=== PATIENT | male | born 1950 | race Caucasian/White ===

== ENCOUNTER 2018-04-04 01:58 | Inpatient (IN) ==
[2018-04-04] MEDS ORDERED: MethylPREDNISolone Sod Succinate Inj 125 MG/2 ML Vial IV.PUSH ONE (02:01)
[2018-04-04 02:19] LABS: Baso # (Auto) 0.1 th/mm3 (0.0-0.2); Baso % (Auto) 1.1 % (0.0-2.0); Eos # (Auto) 0.2 th/mm3 (0.0-0.4); Eos % (Auto) 2.1 % (0.0-4.0); Hematocrit 39.5 % (39.0-51.0); Lymph # (Auto) 2.6 th/mm3 (1.0-4.8); Lymph % (Auto) 25.1 % (9.0-44.0); Mean Corpuscular Hemoglobin 31.6 pg (27.0-34.0); Mean Corpuscular Volume 96.1 fL (80.0-100.0); Mean Platelet Volume 8.3 fL (7.0-11.0); Mono # (Auto) 0.9 th/mm3 (0.0-0.9); Mono % (Auto) 8.2 % (0.0-8.0); Neut # (Auto) 6.7 th/mm3 (1.8-7.7); Neut % (Auto) 63.5 % (16.0-70.0); Platelet Count 278 th/mm3 (150-450); Red Blood Count 4.11 mil/mm3 (4.50-5.90); Red Cell Distribution Width 14.8 % (11.6-17.2); White Blood Count 10.5 th/mm3 (4.0-11.0)
--- NOTE | 2018-04-04 02:19 | ED ---
HPI General Chief complaint: Shortness of Breath/Dyspnea Stated complaint: Respiratory Distress Time Seen by Provider: 04/04/18 02:01 Source: EMS Mode of arrival: EMS Limitations: no limitations History of Present Illness HPI narrative: 68yo M with PMH of DM, HTN, aortic valve replacement, irregular heart rate was brought in by [facility] for sob for a few days. Pt said he has been putting it off. Has long history of smoking but does not know anything about COPD. Denies any fever, chest pain, n/v, abdominal pain, focal weakness or numbness. Pt drinks alcohol daily and had a few beers today. Denies any anticoagulation or any physician representative. Related Data Home Medications Medication Instructions Recorded Confirmed aspirin 162 mg PO DAILY 04/04/18 04/04/18 glipizide 5 mg PO DAILY 04/04/18 04/04/18 losartan 25 mg PO DAILY 04/04/18 04/04/18 metformin 500 mg PO BID 04/04/18 04/04/18 metoprolol tartrate 50 mg PO BID 04/04/18 04/04/18 nifedipine 60 mg PO DAILY 04/04/18 04/04/18 simvastatin 40 mg PO QPM 04/04/18 04/04/18 Allergies Allergy/AdvReac Type Severity Reaction Status Date / Time No Known Allergies Allergy Verified 04/04/18 02:42 Review of Systems ROS: all other systems reviewed are negative [facility]LY [facility] Medical History Medical History Diabetes (Acute) HTN (hypertension) (Acute) Heart attack (Acute) High cholesterol (Acute) History of irregular heartbeat (Acute) Surgical History Surgical History History of heart valve replacement (Acute) Social History Social History Substance History: No History of Abuse Second Hand Smoke Exposure: No Smoking Status: Former smoker How Often Do You Have a Drink Containing Alcohol: 4 or more times a week Recent Travel in [facility] within the Last 8 Weeks: No Exam Narrative Exam Narrative: GENERAL: 68yo M in moderate distress. SKIN: Focused skin assessment warm/dry. HEAD: Atraumatic. Normocephalic. EYES: Pupils equal and round. No scleral icterus. No injection or drainage. ENT: No nasal bleeding or discharge. Mucous membranes pink and moist. NECK: Trachea midline. No JVD. CARDIOVASCULAR: Irregular. No murmur appreciated. RESPIRATORY: + accessory muscle use. End expiratory wheezing bilaterally. Poor air entry. Bibasilar crackles. GASTROINTESTINAL: Abdomen soft, non-tender, nondistended. Hepatic and splenic margins not palpable. MUSCULOSKELETAL: No obvious deformities. No clubbing. No cyanosis. +Bilateral lower extremity edema. NEUROLOGICAL: Awake and alert. No obvious cranial nerve deficits. Motor grossly within normal limits. Normal speech. PSYCHIATRIC: Appropriate mood and affect; insight and judgment normal. Course Initial Documented Vital Signs Temperature 96.0 F L 04/04/18 02:00 Pulse Rate 95 H 04/04/18 02:00 Respiratory Rate 44 H 04/04/18 02:00 Blood Pressure 118/66 04/04/18 02:00 Pulse Oximetry 88 L 04/04/18 02:00 Last Documented Vital Signs Temperature 96.0 F L 04/04/18 02:00 Pulse Rate 96 H 04/04/18 05:47 Respiratory Rate 18 04/04/18 05:47 Blood Pressure 119/66 04/04/18 05:47 Pulse Oximetry 98 04/04/18 05:47 Critical Care Time Critical Care Time: Yes Total Critical Care Time: 50 Attestation: Aggregate critical care time was 50 minutes. Time to perform other separately billable procedures was not included in the critical care time. My time did not include minutes spent treating any other patients simultaneously or on activities that did not directly contribute to the patient's treatment. The services I provided to this patient were to treat and/or prevent clinically significant deterioration that could result in: cardiovascular collapse or . I provided critical care services requiring my management, as noted below: Chart data review, documentation time, medication orders and management, vital sign assessments/reviewing monitor data, ordering and reviewing lab tests, ordering and interpreting/reviewing x-rays and diagnostic studies, care of the patient and discussion of the patient with the admitting physicians. Medical Decision Making MDM Narrative Medical decision making narrative: 68yo M in respiratory distress. Pt was on 4 liters of oxygen and only saturating in the mid 80s. Pt is wheezing bilaterally but poor air entry so placed on BIPAP immediately. Even though pt did drink a few beers, he is AAOx3 with normal mental status and answering all questions. Pt feeling better on BIPAP and saturating at 94% on 40% FiO2. EKG showed diffuse TWI, may have ischemic changes from hypoxemia. CXR showed mild congestive heart failure. Labs reviewed, no leukocytosis. H/H normal. BNP elevated at 1206. Lasix 40mg IV given. Troponin negative at 0.04. Mild hyponatremia at 132. CO2 low 15.7. Normal anion gap. ABG showed pH of 7.37. pCO2 is low at 23, likely respiratory compensation for metabolic acidosis. HCO3 is low at 13. O2 sat is 92%. pO2 73. Informed by nurse that pt's blood pressure is low. BP is systolic in the 60s in left arm but right arm is 126/ 68. Pt denies any chest pain, back pain, focal weakness or numbness. The arterial pulse is weaker on left but feel a good brachial pulse in left arm. Will do CT aorta to r/o dissection. 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 Florian and accepted to his service. He would like patient transferred [facility]. Pt reevaluated at bedside and remains comfortable on BIPAP. He did have a hard time when he was laying flat for the CT scan but is now feeling better sitting up. Pt is refusing garcia catheter at this time. CTA showed no dissection or aneurysm. Mild congestive heart failure. Lactic acid elevated at 5.8. Metabolic acidosis likely from lactic acidosis. Plan is to continue to diurese patient. He is being transported to [facility] on BIPAP. Pt will good mental status and saturating at 97%. BP 119/66. Medical Screen Exam Complete: Yes Emergency Medical Condition: Yes Differential Diagnosis Differential Diagnosis: COPD exacerbation vs. pneumonia vs. CHF vs. NSTEMI Lab Data Result diagrams: 04/04/18 02:00 04/04/18 02:00 Lab Results 04/04/18 04/04/18 04/04/18 Range/Units 02:00 02:00 02:00 CBC w Diff Auto diff final WBC 10.5 (4.0-11.0) th/mm3 RBC 4.11 L (4.50-5.90) mil/mm3 Hgb 13.0 (13.0-17.0) gm/dL Hct 39.5 (39.0-51.0) % MCV 96.1 (80.0-100.0) fL MCH 31.6 (27.0-34.0) pg MCHC 33.0 (32.0-36.0) % RDW 14.8 (11.6-17.2) % Plt Count 278 (150-450) th/mm3 MPV 8.3 (7.0-11.0) fL Neut % (Auto) 63.5 (16.0-70.0) % Lymph % (Auto) 25.1 (9.0-44.0) % Bullock % (Auto) 8.2 H (0.0-8.0) % Eos % (Auto) 2.1 (0.0-4.0) % Baso % (Auto) 1.1 (0.0-2.0) % Neut # (Auto) 6.7 (1.8-7.7) th/mm3 Lymph # (Auto) 2.6 (1.0-4.8) th/mm3 Bullock # (Auto) 0.9 (0.0-0.9) th/mm3 Eos # (Auto) 0.2 (0.0-0.4) th/mm3 Baso # (Auto) 0.1 (0.0-0.2) th/mm3 WBC Differential . Differential Comment . PT 10.2 (9.8-11.6) sec INR 1.0 Ratio APTT 28.0 (23.4-31.7) sec Puncture Site Patient Temperature O2 Saturation (90-100) % ABG pH (7.380-7.420) ABG pCO2 (38-42) mmHg ABG pO2 (61-120) mmHg ABG HCO3 (22-26) mmol/L ABG O2 Content (12.0-20.0) Vol % ABG Base Excess (-2-2) mmol/L ABG Methemoglobin (0-2) % Denzel Test Hemoglobin (12.0-16.0) G/DL Carboxyhemoglobin (0-4) % O2 Delivery Device Vent Setting Inspired O2 % Critical Value Sodium 132 L (136-145) meq/L Potassium 3.9 (3.5-5.1) meq/L Chloride 101 (98-107) meq/L Carbon Dioxide 15.7 L (21.0-32.0) meq/L Anion Gap 15 (5-15) meq/L BUN 13 (7-18) mg/dL Creatinine 1.10 (0.60-1.30) mg/dL Estimated GFR 67 L (>89) mL/min Random Glucose 122 H (74-106) mg/dL Lactic Acid (0.4-2.0) mmol/L Calcium 8.0 L (8.5-10.1) mg/dL Total Bilirubin 0.8 (0.2-1.0) mg/dL AST 19 (15-37) U/L ALT 20 (12-78) U/L Alkaline Phosphatase 82 (45-117) U/L Troponin I 0.04 (0.02-0.05) ng/mL B-Natriuretic Peptide (0-100) pg/mL Total Protein 6.9 (6.4-8.2) g/dL Albumin 3.1 L (3.4-5.0) g/dL 04/04/18 04/04/18 04/04/18 Range/Units 02:00 02:50 04:00 CBC w Diff WBC (4.0-11.0) th/mm3 RBC (4.50-5.90) mil/mm3 Hgb (13.0-17.0) gm/dL Hct (39.0-51.0) % MCV (80.0-100.0) fL MCH (27.0-34.0) pg MCHC (32.0-36.0) % RDW (11.6-17.2) % Plt Count (150-450) th/mm3 MPV (7.0-11.0) fL Neut % (Auto) (16.0-70.0) % Lymph % (Auto) (9.0-44.0) % Bullock % (Auto) (0.0-8.0) % Eos % (Auto) (0.0-4.0) % Baso % (Auto) (0.0-2.0) % Neut # (Auto) (1.8-7.7) th/mm3 Lymph # (Auto) (1.0-4.8) th/mm3 Bullock # (Auto) (0.0-0.9) th/mm3 Eos # (Auto) (0.0-0.4) th/mm3 Baso # (Auto) (0.0-0.2) th/mm3 WBC Differential Differential Comment PT (9.8-11.6) sec INR Ratio APTT (23.4-31.7) sec Puncture Site Right radial Patient Temperature 98.6 O2 Saturation 92 (90-100) % ABG pH 7.37 L (7.380-7.420) ABG pCO2 23 L* (38-42) mmHg ABG pO2 73 (61-120) mmHg ABG HCO3 13 L* (22-26) mmol/L ABG O2 Content 17.0 (12.0-20.0) Vol % ABG Base Excess -11.1 L (-2-2) mmol/L ABG Methemoglobin 1.2 (0-2) % Denzel Test Y Hemoglobin 13.1 (12.0-16.0) G/DL Carboxyhemoglobin 1.4 (0-4) % O2 Delivery Device Bipap Vent Setting [id number] Inspired O2 40 % Critical Value Yes Sodium (136-145) meq/L Potassium (3.5-5.1) meq/L Chloride (98-107) meq/L Carbon Dioxide (21.0-32.0) meq/L Anion Gap (5-15) meq/L BUN (7-18) mg/dL Creatinine (0.60-1.30) mg/dL Estimated GFR (>89) mL/min Random Glucose (74-106) mg/dL Lactic Acid 5.8 H* (0.4-2.0) mmol/L Calcium (8.5-10.1) mg/dL Total Bilirubin (0.2-1.0) mg/dL AST (15-37) U/L ALT (12-78) U/L Alkaline Phosphatase (45-117) U/L Troponin I (0.02-0.05) ng/mL B-Natriuretic Peptide 1206 H (0-100) pg/mL Total Protein (6.4-8.2) g/dL Albumin (3.4-5.0) g/dL Imaging Data Radiologist's impression: Chest X-Ray 04/04/18 02:01 CONCLUSION: Mild congestive heart failure. Thoracic Aorta CT 04/04/18 03:21 CONCLUSION: 1. No thoracic or abdominal aortic aneurysm or dissection. Moderate to severe atherosclerotic disease. 2. Mild congestive heart failure. 3. Atrophic right kidney. Fatty liver. ECG Data EKG Prior to Arrival: No Attestation: I personally reviewed and interpreted this ECG as follows: Interpretation: Afib at 99bpm. TWI diffusely. Poor baseline due to pt's respiration. No significant ST elevation although baseline is very poor. Discharge Plan Discharge Disposition Patient Disposition: 30 Still Patient Discharge Details Diagnosis: Acute respiratory failure with hypoxia, Acidosis, lactic Physicians Team ED Provider: Rosy Taylor Primary Care Provider: Elias Plzaa Attending Provider: Skip Florian Status ED Status: Left Department Discharge Information Discharge Date/Time: 04/04/18 06:03
[2018-04-04 02:28] LABS: Chloride 101 meq/L (98-107); Potassium 3.9 meq/L (3.5-5.1); Sodium 132 meq/L (136-145)
[2018-04-04 02:32] LABS: Albumin 3.1 g/dL (3.4-5.0); Anion Gap 15 meq/L (5-15); Blood Urea Nitrogen 13 mg/dL (7-18); Carbon Dioxide 15.7 meq/L (21.0-32.0); Glucose,Random 122 mg/dL (74-106)
[2018-04-04 02:33] LABS: Prothrombin Time 10.2 sec (9.8-11.6)
[2018-04-04 02:35] LABS: Alanine Aminotransferase 20 U/L (12-78); Aspartate Aminotransferase 19 U/L (15-37)
[2018-04-04 02:36] LABS: Glomerular Filtration Rate 67 mL/min (>89)
[2018-04-04 02:37] LABS: Total Protein 6.9 g/dL (6.4-8.2)
[2018-04-04 02:38] LABS: Alkaline Phosphatase 82 U/L (45-117)
[2018-04-04 02:40] LABS: Troponin I 0.04 ng/mL (0.02-0.05)
--- NOTE | 2018-04-04 02:56 | XR ---
EXAM DATE: 04/04/2018 2:47 AM EST AGE/SEX: 68 years / Male INDICATIONS: Short of breath. CLINICAL DATA: This is the patient's initial encounter. Patient reports that signs and symptoms have been present for 1 day and indicates a pain score of 0/10. MEDICAL/SURGICAL HISTORY: Non-responsive. CABG. COMPARISON: No prior exams available for comparison. FINDINGS: There is bilateral mostly basilar airspace disease with small effusions. Cardiomegaly. Previous rico otomy. CONCLUSION: Mild congestive heart failure. Electronically signed by: Mick Becerra MD 04/04/2018 2:55 AM EST
[2018-04-04 03:02] LABS: ABG Base Excess -11.1 mmol/L (-2-2); ABG PCO2 23 mmHg (38-42); ABG PO2 73 mmHg (61-120)
[2018-04-04] MEDS ORDERED: Potassium Chlor 20 mEq Premix 20 MEQ/100 ML PIGGYBACK IV.SIG PRN ×2 (03:40)
[2018-04-04] MEDS ORDERED: Bisacodyl 10 MG Supp RECTAL PRN (03:40)
[2018-04-04] MEDS ORDERED: Potassium Chlor 40 mEq Premix 40 MEQ/100 ML PIGGYBACK IV.SIG PRN ×2 (03:40)
[2018-04-04] MEDS ORDERED: Potassium Phosphate Inj 30 MMOL in Sodium Chlor 0.9% Inj 250 ML IV.SIG PRN (03:40)
[2018-04-04] MEDS ORDERED: Dextrose 50% in Water 50 ML Vial IV.PUSH PRN (03:40)
[2018-04-04] MEDS ORDERED: Sodium Phosphate Inj 30 MMOL in Sodium Chlor 0.9% Inj 250 ML IV.SIG PRN (03:40)
[2018-04-04] MEDS ORDERED: Magnesium Oxide 400 MG Tablet PO PRN (03:40)
[2018-04-04] MEDS ORDERED: Magnesium Sulfate Inj 2 GM in Sodium Chlor 0.9% Inj 96 ML IV.SIG PRN (03:40)
[2018-04-04] MEDS ORDERED: Potassium Phosphate 500 MG Soluble Tablet PO PRN ×2 (03:40)
[2018-04-04] MEDS ORDERED: Potassium Chloride 25 MEQ Effervescent Tablet PO PRN (03:40)
[2018-04-04] MEDS ORDERED: Magnesium Sulfate Inj 4 GM in Sodium Chlor 0.9% Inj 92 ML IV.SIG PRN (03:40)
[2018-04-04] MEDS ORDERED: Chlorhexidine Gluconate 2% 1 Pack (2 Cloths) TOPICAL PRN (04:00)
--- NOTE | 2018-04-04 04:33 | CT ---
EXAM DATE: 04/04/2018 4:09 AM EST AGE/SEX: 68 years / Male INDICATIONS: Respiratory distress. Possible dissection. CLINICAL DATA: This is the patient's initial encounter. Patient reports that signs and symptoms have been present for 1 day and indicates a pain score of 4/10. MEDICAL/SURGICAL HISTORY: . Diabetes. Heart attack. High cholesterol. Irregular heartbeat. Hyperten roxana. . Heart valve replacement. RADIATION DOSE: 19.18 CTDI (mGy) COMPARISON: No prior exams available for comparison. TECHNIQUE: Volumetric scanning was performed using a multi-row detector CT scanner during bolus infu roxana of 75 ml Omnipaque 350 (iohexol) nonionic water-soluble contrast as a single exam dose. The da ta was post processed with a variety of visualization algorithms including full volume maximum intens ity projection, multi-planar sliding thin slab reformation, curved planar reformation, and surface re ndering techniques. Using automated exposure control and adjustment of the mA and/or kV according to patient size, radiation dose was kept as low as reasonably achievable to obtain optimal diagnostic q uality images. DICOM format image data is available electronically for review and comparison. FINDINGS: There is no thoracic or abdominal aortic aneurysm or dissection. Moderate atherosclerotic disease is present. Moderate coronary artery calcifications. There is a mild edema pattern in the lungs with small bilateral pleural effusions and basilar atelect asis most characteristic of mild heart failure. The liver is fatty infiltrated. Spleen, adrenals, left kidney and pancreas unremarkable. Atrophic rig ht kidney. No pelvic masses. CONCLUSION: 1. No thoracic or abdominal aortic aneurysm or dissection. Moderate to severe atherosclerotic diseas e. 2. Mild congestive heart failure. 3. Atrophic right kidney. Fatty liver. Electronically signed by: Mick Becerra MD 04/04/2018 4:32 AM EST
--- NOTE | 2018-04-04 06:38 | P.HPCC ---
History of Present Illness Service: Critical care Primary Care Physician: Elias Plaza MD Chief Complaint: Increasing shortness of breath, heart failure History of Present Illness: Patient is a 68-year-old male with past medical history significant for DM, HTN, aortic valve replacement 2007 (pericardial tissue valve), irregular heart rate, alcohol abuse/dependence who was brought in by [facility] for sob for a few days. Quit smoking about 10 years ago. Continues to drink heavily approximately 9 beers daily. Does not regularly see a instrument lens generator has irregular heart rate but not sure whether it is atrial fibrillation, takes aspirin not on any anticoagulation. In the ER initially on nasal cannula at 4 L oxygen saturation was only in the mid 80s. Because of diffuse wheezing patient received IV Solu-Medrol 125 mg x1 and breathing treatments and subsequently was placed on BiPAP. Chest x-ray showed evidence of congestive heart failure, BNP was 1200. Patient was given a total of 120 mg of IV Lasix in the [place] emergency department. Subsequently was transferred to CVICU at [facility] where I evaluated him. Patient also was noted to have severe metabolic acidosis secondary to lactic acidosis 5.8. This appears most likely secondary to poor perfusion. ABG showed pH of 7.37. pCO2 23, PO2 73, bicarb was 13 with a base excess of -11. I evaluated the patient in the ICU. He is on BiPAP in moderate distress. His clinical exam is consistent with CHF exacerbation. 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 And a stat echo had been ordered. Continue IV Lasix for diuresis along with breathing treatments. I am unable to do inotropic support at this time as severe aortic stenosis is not ruled out, also patient is in atrial fibrillation with RVR. Rate controlled with p.o. metoprolol and IV metoprolol as needed. Cardiology also had been consulted - Diagnosis (1) Acute hypoxemic respiratory failure (2) CHF exacerbation (3) Atrial fibrillation with RVR (4) Acidosis, lactic (5) COPD exacerbation (6) Alcohol dependence (7) Type 2 diabetes mellitus (8) Hypertension (9) S/P AVR (aortic valve replacement) Inpatient Certification: I certify that the inpatient services were ordered in accordance with Medicare regulations governing the order. This includes certification that hospital inpatient services are reasonable and necessary and in the case of services not specified as inpatient-only under 42 CFR 419.22(n), that they are appropriately provided as inpatient services in accordance to with the 2-midnight benchmark under 43 CFR 412.3(e) Estimated Total Length of Stay (Days): 7 Plans for Post Hospital Care: Not yet determined Review of Systems other (Limited due to BiPAP use) [facility] - History History Provided By: Patient - Medical History Medical History: Medical History (Last Reviewed 04/04/18 @ 07:07 by Agueda Pierre MD) Diabetes HTN (hypertension) Heart attack High cholesterol History of irregular heartbeat - Surgical History Surgical History: Surgical History (Last Reviewed 04/04/18 @ 07:07 by Agueda Pierre MD) History of heart valve replacement - Tobacco History Second Hand Smoke Exposure: No Smoking Status: Former smoker - Alcohol History How Often Do You Have a Drink Containing Alcohol: 4 or more times a week - Substance Use History Substance History: No History of Abuse - Travel History Recent Travel in the [facility] Within the Last 8 Weeks: No - Immunization History Tetanus Immunization: >5 Years Medications and Allergies Active Medications: Active Medications Albuterol (Duoneb Neb (Prn)) 1 ampul NEB Q2HR NEB PRN PRN Reason: WHEEZING Bisacodyl (Dulcolax Supp) 10 mg RECTAL DAILY PRN PRN Reason: if no BM in last 24h Chlorhexidine Gluconate (Chlorhexidine 2% Cloth) 3 pack TOPICAL DAILY@0400 JAZZMINE Stop: 04/09/18 03:59 Chlorhexidine Gluconate (Chlorhexidine 2% Cloth) 3 pack TOPICAL DAILY@0400 PRN PRN Reason: Extra cloth needed Stop: 04/09/18 03:59 Dextrose (D50w Vial) 50 ml IV.PUSH UNSCH PRN PRN Reason: PER HYPOGLYCEMIA PROTOCOL Glucagon (Glucagon Inj) 1 mg OTHER PRN PRN PRN Reason: for Hypoglycemia Protocol Magnesium Sulfate 4 gm/ Sodium (Chloride) 100 mls @ 50 mls/hr IV.SIG UNSCH PRN PRN Reason: For Magnesium 0.9 - 1.1 mg/dL Magnesium Sulfate 2 gm/ Sodium (Chloride) 100 mls @ 50 mls/hr IV.SIG UNSCH PRN PRN Reason: For Magnesium 1.2 - 1.6 mg/dL Potassium Chloride (Kcl 40 Meq Premix Inj) 40 meq in 100 mls @ 25 mls/hr IV.SIG Q2H PRN PRN Reason: For Potassium 2.8 - 3.2 mEq/L Potassium Chloride (Kcl 20 Meq Premix Inj) 20 meq in 100 mls @ 50 mls/hr IV.SIG Q2H PRN PRN Reason: For Potassium 3.3 - 3.5 mEq/L Potassium Chloride (Kcl 40 Meq Premix Inj) 40 meq in 100 mls @ 25 mls/hr IV.SIG UNSCH PRN PRN Reason: For Potassium 3.3 - 3.5 mEq/L Potassium Chloride (Kcl 20 Meq Premix Inj) 20 meq in 100 mls @ 50 mls/hr IV.SIG Q2H PRN PRN Reason: For Potassium 2.8 - 3.2 mEq/L Sodium Phosphate 30 mmol/ (Sodium Chloride) 260 mls @ 42 mls/hr IV.SIG UNSCH PRN PRN Reason: For Phosphorus < 2.5 mg/dL Potassium Phosphate 30 mmol/ (Sodium Chloride) 260 mls @ 42 mls/hr IV.SIG UNSCH PRN PRN Reason: SEE LABEL COMMENTS Milrinone Lactate 20 mg/ (Sodium Chloride) 100 mls @ 0 mls/hr IV.CONT .Q0M JAZZMINE ; Protocol Insulin Human Regular (Novolin R Correctional Sugar Inj) 0 units SQ Q6HR JAZZMINE; Protocol Lactulose (Lactulose Liq) 30 ml PO BID JAZZMINE Magnesium Oxide (Mag-Ox) 800 mg PO UNSCH PRN PRN Reason: For Magnesium 1.2 - 1.6 mg/dL Methylprednisolone Sodium Succinate (Solumedrol Inj) 40 mg IV.PUSH Q6H JAZZMINE Ondansetron HCl (Zofran Inj) 4 mg IV.PUSH Q6H PRN PRN Reason: NAUSEA OR VOMITING Polyethylene Glycol (Miralax) 17 gm PO BID JAZZMINE Potassium Bicarb/Potassium Chloride (K-Lyte Cl Eff) 50 meq PO UNSCH PRN PRN Reason: For Potassium 3.3 - 3.5 mEq/L Potassium Phosphate (K-Phos Original) 2,000 mg PO Q4H PRN PRN Reason: Phosphorus Less Than 2.5 mg/dL Potassium Phosphate (K-Phos Original) 2,000 mg PO UNSCH PRN PRN Reason: SEE LABEL COMMENTS Senna/Docusate Sodium (Lisa-Colace) 1 tab PO BID JAZZMINE Sodium Chloride (Ns Flush) 2 ml IV.FLUSH UNSCH PRN PRN Reason: FLUSH AFTER USING IV ACCESS Allergies Allergy/AdvReac Type Severity Reaction Status Date / Time No Known Allergies Allergy Verified 04/04/18 02:42 Home Medications Medication Instructions Recorded Confirmed Type aspirin 162 mg PO DAILY 04/04/18 04/04/18 History glipizide 5 mg PO DAILY 04/04/18 04/04/18 History losartan 25 mg PO DAILY 04/04/18 04/04/18 History metformin 500 mg PO BID 04/04/18 04/04/18 History metoprolol tartrate 50 mg PO BID 04/04/18 04/04/18 History nifedipine 60 mg PO DAILY 04/04/18 04/04/18 History simvastatin 40 mg PO QPM 04/04/18 04/04/18 History Results - Labs CBC & Chem 7: 04/04/18 02:00 04/04/18 02:00 Labs: Short CBC 04/04/18 Range/Units 02:00 WBC 10.5 (4.0-11.0) th/mm3 Hgb 13.0 (13.0-17.0) gm/dL Hct 39.5 (39.0-51.0) % Plt Count 278 (150-450) th/mm3 BMP 04/04/18 02:00 Sodium 132 L Potassium 3.9 Chloride 101 Carbon Dioxide 15.7 L BUN 13 Creatinine 1.10 Calcium 8.0 L Cardiac Enzymes 04/04/18 Range/Units 02:00 Troponin I 0.04 (0.02-0.05) ng/mL Liver Function 04/04/18 Range/Units 02:00 Total Bilirubin 0.8 (0.2-1.0) mg/dL AST 19 (15-37) U/L ALT 20 (12-78) U/L Alkaline Phosphatase 82 (45-117) U/L Albumin 3.1 L (3.4-5.0) g/dL - Imaging Impressions Chest X-Ray 04/04/18 02:01 CONCLUSION: Mild congestive heart failure. Thoracic Aorta CT 04/04/18 03:21 CONCLUSION: 1. No thoracic or abdominal aortic aneurysm or dissection. Moderate to severe atherosclerotic disease. 2. Mild congestive heart failure. 3. Atrophic right kidney. Fatty liver. Exam Vital signs: Vital Signs 04/04/18 02:00 04/04/18 02:05 04/04/18 02:20 Temperature 96.0 F L Pulse Rate 95 H 96 H 94 H Respiratory Rate 44 H 28 H 24 Blood Pressure 118/66 Pulse Oximetry 88 L 89 L 94 L 04/04/18 02:35 04/04/18 03:00 04/04/18 04:08 Temperature Pulse Rate 90 Respiratory Rate 23 22 Blood Pressure 126/69 116/53 L Pulse Oximetry 97 04/04/18 04:50 04/04/18 05:24 04/04/18 05:30 Temperature Pulse Rate 96 H 103 H Respiratory Rate 18 18 Blood Pressure 104/49 L 99/55 L Pulse Oximetry 97 97 04/04/18 05:47 Temperature Pulse Rate 96 H Respiratory Rate 18 Blood Pressure 119/66 Pulse Oximetry 98 Intake & Output 04/03/18 04/03/18 04/04/18 06:59 18:59 06:59 Output Total 250 / 250 Balance -250 / -250 Weight 85.729 kg Output: Urine 250 / 250 Narrative: GENERAL: 68-year-old male who appears older than stated age, moderate distress on BiPAP SKIN: warm/dry. HEAD: Atraumatic. Normocephalic. EYES: Pupils equal and round. No scleral icterus. ENT: No nasal bleeding or discharge. NECK: Trachea midline. Elevated JVD CARDIOVASCULAR: Irregular, A. fib with RVR on monitor. Prominent grade 3 systolic murmur heard in the aortic area possible aortic stenosis RESPIRATORY: + accessory muscle use. Bilateral mild expiratory wheezing. Bibasilar crackles. GASTROINTESTINAL: Abdomen soft, non-tender, nondistended. Hepatic and splenic margins not palpable. MUSCULOSKELETAL: No obvious deformities. No clubbing. No cyanosis. 1+ Bilateral lower extremity edema. NEUROLOGICAL: Awake and alert. No obvious cranial nerve deficits. Motor grossly within normal limits. Normal speech. Septic Shock Reassessment Septic shock perfusion: reassessment completed Caprini VTE Risk Assessment Caprini VTE Risk Assessment: Moderate/High Risk (score >= 2) Caprini Risk Assessment Model: Point Value = 1 Point Value = 2 Point Value = 3 Point Value = 5 Age 41-60 Minor surgery BMI > 25 kg/m2 Swollen legs Varicose veins or History of unexplained or recurrent spontaneous Oral contraceptives or hormone replacement Sepsis (< 1 month) Serious lung disease, including pneumonia (< 1 month) Abnormal pulmonary function Acute myocardial infarction Congestive heart failure (< 1 month) History of inflammatory bowel disease Medical patient at bed rest Age 61-74 Arthroscopic surgery Major open surgery (> 45 min) Laparoscopic surgery (> 45 min) Malignancy Confined to bed (> 72 hours) Immobilizing plaster cast Central venous access Age >= 75 History of VTE Family history of VTE Factor V Leiden Prothrombin [id number] Lupus anticoagulant Anticardiolipin antibodies Elevated serum homocysteine Heparin-induced thrombocytopenia Other congenital or acquired thrombophilia Stroke (< 1 month) Elective arthroplasty Hip, pelvis, or leg fracture Acute spinal cord injury (< 1 month) Prophylaxis Regimen: Total Risk Factor Score Risk Level Prophylaxis Regimen 0-1 Low Early ambulation 2 Moderate Order ONE of the following: *Sequential Compression Device (SCD) *Heparin 5000 units SQ BID 3-4 Higher Order ONE of the following medications: *Heparin 5000 units SQ TID *Enoxaparin/Lovenox 40 mg SQ daily (WT < 150 kg, CrCl > 30 mL/min) *Enoxaparin/Lovenox 30 mg SQ daily (WT < 150 kg, CrCl > 10-29 mL/min) *Enoxaparin/Lovenox 30 mg SQ BID (WT < 150 kg, CrCl > 30 mL/min) AND/OR *Sequential Compression Device (SCD) 5 or more Highest Order ONE of the following medications: *Heparin 5000 units SQ TID (Preferred with Epidurals) *Enoxaparin/Lovenox 40 mg SQ daily (WT < 150 kg, CrCl > 30 mL/min) *Enoxaparin/Lovenox 30 mg SQ daily (WT < 150 kg, CrCl > 10-29 mL/min) *Enoxaparin/Lovenox 30 mg SQ BID (WT < 150 kg, CrCl > 30 mL/min) AND *Sequential Compression Device (SCD) Assessment and Plan - Problem List (1) Acute hypoxemic respiratory failure Code(s): J96.01 - Acute respiratory failure with hypoxia Status: Acute (2) CHF exacerbation Code(s): I50.9 - Heart failure, unspecified Status: Acute (3) Atrial fibrillation with RVR Code(s): I48.91 - Unspecified atrial fibrillation Status: Acute (4) Acidosis, lactic Code(s): E87.2 - Acidosis Status: Acute (5) COPD exacerbation Code(s): J44.1 - Chronic obstructive pulmonary disease with (acute) exacerbation Status: Acute (6) Alcohol dependence Code(s): F10.20 - Alcohol dependence, uncomplicated Status: Chronic (7) Type 2 diabetes mellitus Code(s): E11.9 - Type 2 diabetes mellitus without complications Status: Chronic (8) Hypertension Code(s): I10 - Essential (primary) hypertension Status: Chronic (9) S/P AVR (aortic valve replacement) Code(s): Z95.2 - Presence of prosthetic heart valve Status: Chronic - Assessment and Plan Plan: NEURO: Alcohol dependence -Strongly advised to quit drinking -Supplement multivitamin thiamine -Watch closely for withdrawal as the patient drinks about 9 beers daily -Ativan as needed ordered for alcohol withdrawal RESP: Acute hypoxemic respiratory failure Pulmonary edema Probable COPD with exacerbation -Continue BiPAP 04/15. 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 fib rate controlled with beta-blockers -Metoprolol 2.5 mg IV every 6 hours as needed for heart rate more than 100 -2d echo, cardiology consult, serial troponin -Unable to use inotropic agents for lactate clearance at this time, due to A. fib with RVR, and severe aortic stenosis not ruled out -Patient most likely not a candidate for long-term anticoagulation due to alcohol dependence GI: -N.p.o. until respiratory status improved, IV famotidine : -Monitor renal function closely. Place Post catheter. -IV Lasix as above ID: -Monitor closely for evidence of infection -No antibiotics at this time HEME: -Monitor CBC, coags ENDO: Type 2 diabetes -Electrolyte replacement per protocol -Sliding scale insulin PROPH: -Bilateral lower extremity SCDs. Lovenox/famotidine LINES: -Utilize peripheral IVs, central line if needed CC time 47 min discontinuously Code Status: Full
[2018-04-04] MEDS ORDERED: Milrinone Inj 20 MG in Sodium Chlor 0.9% Inj 80 ML IV.CONT SCH (07:00)
[2018-04-04] MEDS ORDERED: Metoprolol Inj 5 MG/5 ML Vial IV.PUSH PRN (07:09)
[2018-04-04] MEDS ORDERED: Sodium Bicarbonate 8.4% Inj 50 MEQ/50 ML Syringe IV.PUSH ONE (07:30)
[2018-04-04] MEDS ORDERED: MethylPREDNISolone Sod Succinate Inj 40 MG/ML Vial IV.PUSH SCH ×2 (08:00→11:00)
[2018-04-04] MEDS ORDERED: Enoxaparin Inj 40 MG/0.4 ML Syringe SQ SCH (09:00)
[2018-04-04] MEDS: Aspirin 325 MG Tablet PO SCH (09:25)
[2018-04-04] MEDS: Metoprolol Tartrate 50 MG Tablet PO SCH ×2 (09:26→21:23)
[2018-04-04] MEDS: Insulin NovoLIN Regular Correctional Sugar Inj SQ SCH ×3 (09:26→17:52)
[2018-04-04] MEDS: Senna/Docusate Sodium 8.6/50 MG Tablet PO SCH ×2 (09:26→21:23)
[2018-04-04] MEDS: Polyethylene Glycol 3350 17 GM Packet PO SCH ×2 (09:27→21:25)
--- NOTE | 2018-04-04 10:24 | MB ---
cc: Hans Broderick MD DATE: 04/03/2018 CHIEF COMPLAINT: Evaluation of acute congestive heart failure. HISTORY OF PRESENT ILLNESS: Angelo Howell is a 68-year-old man with a history of a #21 mm [place] aortic valve replacement 05/22/2007. His cardiac catheterization prior to that showed normal coronary arteries. Valve replacement was required for aortic stenosis secondary to bicuspid valve. Unfortunately, the patient has not had any cardiology followup. He is and lives alone and drinks about 9 beers a day. He does not smoke. He has been developing progressive shortness of breath, which has become acute in the past 2 days. He is now admitted with acute pulmonary edema. He is not able to lie down but while sitting up he is breathing adequately. Denies any chest pain. He has had slight edema. PAST MEDICAL HISTORY: Includes hypertension, diabetes, obesity, COPD, kidney stones, hyperlipidemia. He has been found to have an atrophic right kidney and coronary artery calcifications on his chest CT. SOCIAL HISTORY: Significant for past smoking and current alcohol abuse. MEDICATIONS: Apparently, the only medications he was taking at home was aspirin, although his list includes: 1. Glipizide. 2. Losartan. 3. Metformin. 4. Metoprolol. 5. Nifedipine. 6. Simvastatin. REVIEW OF SYSTEMS: Just recently had cataract surgery and he has had some past mid abdominal pain. Remaining review of systems is negative. PHYSICAL EXAMINATION: GENERAL: Obese, alert, pleasant, white male, mildly tachypneic, but not severely distressed. HEENT: Unremarkable. NECK: Jugular venous distention. Carotid upstrokes are diminished. CHEST: Bibasilar rhonchi. CARDIAC: Normal S1, soft S2, and a harsh 3/6 aortic stenosis murmur, loudest at the right upper sternal border. ABDOMEN: Soft, nontender. EXTREMITIES: One plus edema. Pedal pulses are diminished but palpable. DIAGNOSTIC DATA: Echo shows mitral annular calcification, aortic valve calcification. Aortic valve gradient was 83 mm mean, 133 mm peak, consistent with critical . Right ventricular systolic pressure elevated at 60. Labs show creatinine of 1.1, hematocrit 39.5. Troponin 0.04. BNP 1206. EKG shows atrial fibrillation, ventricular rate of 98. Duration of atrial fibrillation is unclear. There is a strain pattern. IMPRESSION: History of bioprosthetic aortic valve, now with critical stenosis and acute pulmonary edema. PLAN: Diurese him, get him out of pulmonary edema. He will need a diagnostic cardiac catheterization and then will need either a TAVR or open valve replacement, hopefully TAVR because of his high risk status. Metoprolol has been started by the publisher assistant. Heart rate is currently about 110. I am going to add IV heparin. Further therapy to be determined. MD LESLEE Yoo/ts , 10:00 AM , 10:08 AM
[2018-04-04] MEDS: Multivitamin Inj 10 ML, Thiamine Inj 100 MG, Folic Acid Inj 1 MG in Sodium Chlor 0.9% I... IV.SIG SCH (10:31)
[2018-04-04] MEDS: Heparin Drip 25,000 UNIT/250 ML BAG IV.CONT PRN (10:55)
[2018-04-04 10:57] LABS: Activated Partial Thrombo Time 26.2 sec (23.4-31.7); INR 1.1 Ratio; Prothrombin Time 10.7 sec (9.8-11.6)
--- NOTE | 2018-04-04 11:06 | P.CON ---
History of Present Illness Service: CT Surgery Consult date: 04/04/18 Requesting Physician: Agueda Pierre Reason for Consult: Prosthetic valve aortic stenosis, acute CHF Primary Care Provider: Elias Plaza MD Chief Complaint: Increasing shortness of breath, heart failure History of Present Illness: 68y/o male with past medical history significant for DM, HTN, aortic valve replacement 2007 (pericardial tissue valve) by Dr. Wright, irregular heart rate , alcohol abuse who was brought in by [facility] for sob for a few days. Quit smoking about 10 years ago. Continues to drink heavily approximately 9 beers daily. Does not regularly see a lab nurse has irregular heart rate but not sure whether it is atrial fibrillation, takes aspirin not on any anticoagulation. The patient presented with hypoxia, severe dyspnea, and a profound metabolic acidosis with high lactate levels. He was found to be in pulmonary edema as well requiring BIPAP. He was diuresed in the ED and admitted to the CVICU where ECHO shows critical prosthetic valve . He has a 21 [place] pericardial valve placed on 05/22/2007 model Magna 3000. Review of Systems Constitutional: Reports fatigue, Reports lack of energy Eyes: Denies blind spots, Denies blurry vision, Denies bulging eyes, Denies change in vision, Denies double vision, Denies discharge, Denies dry eyes, Denies floaters, Denies irritation, Denies itchy eyes, Denies loss of vision, Denies pain, Denies requires corrective lenses, Denies sensitivity to light, Denies other Ears, Nose, Mouth, and Throat: Denies abnormal hearing, Denies bleeding gums, Denies bad breath, Denies change in voice, Denies dental pain, Denies difficulty swallowing, Denies dizziness, Denies dry mouth, Denies ear discharge , Denies ear pain, Denies facial pain, Denies headache(s), Denies hearing loss, Denies hoarseness, Denies lip swelling, Denies nosebleed, Denies mouth lesions, Denies mouth pain, Denies nasal congestion, Denies nasal discharge, Denies nasal obstruction, Denies nasal trauma, Denies neck lump, Denies neck pain, Denies nose pain, Denies pain with swallowing, Denies poor balance, Denies post nasal drip, Denies ringing in the ears, Denies sinus pain, Denies sinus pressure , Denies sore throat, Denies throat swelling, Denies tongue swelling, Denies other Cardiovascular: Reports irregular heart rhythm, Reports shortness of breath, Reports shortness of breath with activity Respiratory: Denies change in phlegm color, Denies chest congestion, Denies cough, Denies coughing up blood, Denies excessive phlegm production, Denies pain on inspiration, Denies pain with cough, Denies shortness of breath, Denies shortness of breath with activity, Denies snoring, Denies stridor, Denies wheezing, Denies other Gastrointestinal: Denies abdominal pain, Denies belching, Denies black, tarry stools, Denies bloating, Denies bright, red blood in stools, Denies change in bowel habits, Denies constant urge to pass stool, Denies change in stools, Denies coffee ground vomit, Denies constipation, Denies cramping, Denies difficulty swallowing, Denies excessive passing of gas, Denies feeling full early, Denies heartburn, Denies incontinent of stools, Denies loose stools, Denies nausea, Denies pain with swallowing, Denies vomiting, Denies vomiting blood, Denies other Genitourinary: Denies blood in semen, Denies blood in urine, Denies decreased urination, Denies difficulty urinating, Denies difficulty with ejaculations, Denies erectile dysfunction, Denies genital lesions, Denies genital pain, Denies painful urination, Denies side pain, Denies frequent nighttime urination , Denies painful ejaculations, Denies penile discharge, Denies scrotal swelling , Denies testicle lump, Denies testicle pain, Denies urinary frequency, Denies urinary hesitancy, Denies urinary incontinence, Denies urinary urgency, Denies other Musculoskeletal: Denies abnormal walking, Denies back pain, Denies body aches, Denies decreased muscle mass, Denies deformity, Denies joint pain, Denies joint swelling, Denies limited joint movement, Denies loss of height, Denies muscle cramps, Denies muscle weakness, Denies neck pain, Denies numbness, Denies radiating pain into limb, Denies stiffness, Denies tingling, Denies other Skin/Breast: Denies acne, Denies bleeding lesions, Denies boil, Denies breast swelling, Denies breast skin changes, Denies breast pain, Denies breast lump, Denies change in breast shape, Denies change in hair, Denies change in skin color, Denies changing lesions, Denies dry skin, Denies excessive hair growth, Denies hair loss, Denies itching, Denies lesions, Denies nail changes, Denies new lesions, Denies nipple discharge, Denies non-healing lesions, Denies redness , Denies sensitivity to light, Denies rash, Denies skin pain, Denies skin ulcer , Denies sores, Denies stretch taveras, Denies unusual bruising, Denies wounds, Denies yellowing of the skin, Denies other Neurologic: Denies abnormal hearing, Denies abnormal movements, Denies abnormal speech, Denies abnormal walking, Denies behavioral changes, Denies burning sensations, Denies confusion, Denies dizziness, Denies fainting, Denies frequent falls, Denies headache(s), Denies lack of coordination, Denies localized weakness, Denies loss of vision, Denies memory loss, Denies numbness, Denies other visual disturbances, Denies radiating pain, Denies restless legs, Denies convulsions, Denies seizure-like activity, Denies sensory deficit, Denies tingling, Denies tingling/numbness/burning sensations, Denies tremor(s), Denies unsteadiness, Denies weakness, Denies other Psychiatric: Denies abnormal sleep pattern, Denies anxiety, Denies behavioral changes, Denies change in appetite, Denies change in sex drive, Denies confusion , Denies depression, Denies difficulty concentrating, Denies hearing things others do not hear, Denies hopelessness, Denies irritability, Denies lack of enjoyment, Denies memory loss, Denies mood swings, Denies panic attacks, Denies paranoia, Denies seeing things others do not see, Denies sensing things others do not sense, Denies tactile hallucinations, Denies thoughts of hurting/killing others, Denies thoughts of hurting/killing yourself, Denies other Endocrine: Denies cold intolerance, Denies excessive sweating, Denies flushing, Denies heat intolerance, Denies increased hunger, Denies increased thirst, Denies increased urination, Denies rapid, pounding, or irregular heartbeat, Denies other Hematologic/Lymphatic: Denies easy bleeding, Denies easy bruising, Denies enlarged lymph nodes, Denies other Allergic/Immunologic: Denies GI upset with certain foods, Denies hives, Denies itchy eyes, Denies lip swelling, Denies seasonal runny nose, Denies throat swelling, Denies tongue swelling, Denies wheezing, Denies other PMFSH - History History Provided By: Patient - Medical History Medical History: Medical History (Last Reviewed 04/04/18 @ 07:43 by Derrek Vides) Diabetes HTN (hypertension) Heart attack High cholesterol History of irregular heartbeat - Surgical History Surgical History: Surgical History (Last Reviewed 04/04/18 @ 07:43 by Derrek Vides) History of heart valve replacement - Social History I have reviewed the patient's Social History: Yes - Tobacco History Second Hand Smoke Exposure: No Smoking Status: Former smoker - Alcohol History How Often Do You Have a Drink Containing Alcohol: 4 or more times a week - Substance Use History Substance History: No History of Abuse - Travel History Recent Travel in the [place] Within the Last 8 Weeks: No Recent Travel Out of the Country Within the Last 8 Weeks: No - Immunization History Tetanus Immunization: >5 Years Medications and Allergies Active Medications: Active Medications Albuterol (Duoneb Neb (Prn)) 1 ampul NEB Q2HR NEB PRN PRN Reason: WHEEZING Albuterol (Duoneb Neb (Shirley)) 1 ampul NEB Q6HR NEB SHIRLEY Aspirin (Aspirin) 162.5 mg PO DAILY SHIRLEY Last Admin: 04/04/18 09:25 Dose: 162.5 mg Bisacodyl (Dulcolax Supp) 10 mg RECTAL DAILY PRN PRN Reason: if no BM in last 24h Chlorhexidine Gluconate (Chlorhexidine 2% Cloth) 3 pack TOPICAL DAILY@0400 SHIRLEY Stop: 04/09/18 03:59 Chlorhexidine Gluconate (Chlorhexidine 2% Cloth) 3 pack TOPICAL DAILY@0400 PRN PRN Reason: Extra cloth needed Stop: 04/09/18 03:59 Dextrose (D50w Vial) 50 ml IV.PUSH UNSCH PRN PRN Reason: PER HYPOGLYCEMIA PROTOCOL Furosemide (Lasix Inj) 40 mg IV.PUSH BID@0900,1800 [facility] Last Admin: 04/04/18 09:27 Dose: 40 mg Glucagon (Glucagon Inj) 1 mg OTHER PRN PRN PRN Reason: for Hypoglycemia Protocol Magnesium Sulfate 4 gm/ Sodium (Chloride) 100 mls @ 50 mls/hr IV.SIG UNSCH PRN PRN Reason: For Magnesium 0.9 - 1.1 mg/dL Magnesium Sulfate 2 gm/ Sodium (Chloride) 100 mls @ 50 mls/hr IV.SIG UNSCH PRN PRN Reason: For Magnesium 1.2 - 1.6 mg/dL Potassium Chloride (Kcl 40 Meq Premix Inj) 40 meq in 100 mls @ 25 mls/hr IV.SIG Q2H PRN PRN Reason: For Potassium 2.8 - 3.2 mEq/L Potassium Chloride (Kcl 20 Meq Premix Inj) 20 meq in 100 mls @ 50 mls/hr IV.SIG Q2H PRN PRN Reason: For Potassium 3.3 - 3.5 mEq/L Potassium Chloride (Kcl 40 Meq Premix Inj) 40 meq in 100 mls @ 25 mls/hr IV.SIG UNSCH PRN PRN Reason: For Potassium 3.3 - 3.5 mEq/L Potassium Chloride (Kcl 20 Meq Premix Inj) 20 meq in 100 mls @ 50 mls/hr IV.SIG Q2H PRN PRN Reason: For Potassium 2.8 - 3.2 mEq/L Sodium Phosphate 30 mmol/ (Sodium Chloride) 260 mls @ 42 mls/hr IV.SIG UNSCH PRN PRN Reason: For Phosphorus < 2.5 mg/dL Potassium Phosphate 30 mmol/ (Sodium Chloride) 260 mls @ 42 mls/hr IV.SIG UNSCH PRN PRN Reason: SEE LABEL COMMENTS Multivitamins 10 ml/ Thiamine HCl 100 mg/ Folic Acid 1 mg/Sodium Chloride 511.2 mls @ 125 mls/hr IV.SIG Q24H SHIRLEY Stop: 04/06/18 12:06 Last Admin: 04/04/18 10:31 Dose: 125 mls/hr Heparin Sodium/Dextrose (Heparin/D5w 25,000 U/250 Ml) 25,000 unit in 250 mls @ 10 mls/hr IV.CONT TITRATE PRN; Protocol PRN Reason: Per Protocol Insulin Human Regular (Novolin R Correctional Sugar Inj) 0 units SQ Q6HR SHIRLEY; Protocol Last Admin: 04/04/18 09:26 Dose: 7 units Lactulose (Lactulose Liq) 30 ml PO BID SHIRLEY Last Admin: 04/04/18 09:27 Dose: Not Given Lorazepam (Ativan Inj) 1 mg IV.PUSH Q4H PRN PRN Reason: agitation,withdrawal Magnesium Oxide (Mag-Ox) 800 mg PO UNSCH PRN PRN Reason: For Magnesium 1.2 - 1.6 mg/dL Methylprednisolone Sodium Succinate (Solumedrol Inj) 40 mg IV.PUSH Q8H [facility] Metoprolol Tartrate (Lopressor) 50 mg PO BID [facility] Last Admin: 04/04/18 09:26 Dose: 50 mg Metoprolol Tartrate (Lopressor Inj) 2.5 mg IV.PUSH Q6H PRN PRN Reason: HR>100 Ondansetron HCl (Zofran Inj) 4 mg IV.PUSH Q6H PRN PRN Reason: NAUSEA OR VOMITING Polyethylene Glycol (Miralax) 17 gm PO BID [facility] Last Admin: 04/04/18 09:27 Dose: Not Given Potassium Bicarb/Potassium Chloride (K-Lyte Cl Eff) 50 meq PO UNSCH PRN PRN Reason: For Potassium 3.3 - 3.5 mEq/L Potassium Chloride (K-Dur) 20 meq PO BID [facility] Last Admin: 04/04/18 09:25 Dose: 20 meq Potassium Phosphate (K-Phos Original) 2,000 mg PO Q4H PRN PRN Reason: Phosphorus Less Than 2.5 mg/dL Potassium Phosphate (K-Phos Original) 2,000 mg PO UNSCH PRN PRN Reason: SEE LABEL COMMENTS Pravastatin Sodium (Pravachol) 80 mg PO [facility] Senna/Docusate Sodium (Lisa-Colace) 1 tab PO BID [facility] Last Admin: 04/04/18 09:26 Dose: 1 tab Sodium Chloride (Ns Flush) 2 ml IV.FLUSH UNSCH PRN PRN Reason: FLUSH AFTER USING IV ACCESS Allergies Allergy/AdvReac Type Severity Reaction Status Date / Time No Known Allergies Allergy Verified 04/04/18 02:42 Home Medications Medication Instructions Recorded Confirmed Type aspirin 162 mg PO DAILY 04/04/18 04/04/18 History glipizide 5 mg PO DAILY 04/04/18 04/04/18 History losartan 25 mg PO DAILY 04/04/18 04/04/18 History metformin 500 mg PO BID 04/04/18 04/04/18 History metoprolol tartrate 50 mg PO BID 04/04/18 04/04/18 History nifedipine 60 mg PO DAILY 04/04/18 04/04/18 History simvastatin 40 mg PO QPM 04/04/18 04/04/18 History Physical Exam Vital signs: Vital Signs 04/04/18 02:00 04/04/18 02:05 04/04/18 02:20 Temperature 96.0 F L Pulse Rate 95 H 96 H 94 H Respiratory Rate 44 H 28 H 24 Blood Pressure 118/66 Pulse Oximetry 88 L 89 L 94 L 04/04/18 02:35 04/04/18 03:00 04/04/18 04:08 Temperature Pulse Rate 90 Respiratory Rate 23 22 Blood Pressure 126/69 116/53 L Pulse Oximetry 97 04/04/18 04:50 04/04/18 05:24 04/04/18 05:30 Temperature Pulse Rate 96 H 103 H Respiratory Rate 18 18 Blood Pressure 104/49 L 99/55 L Pulse Oximetry 97 97 04/04/18 05:47 04/04/18 06:30 Temperature 96.7 F L Pulse Rate 96 H 117 H Respiratory Rate 18 22 Blood Pressure 119/66 117/73 Pulse Oximetry 98 97 Intake & Output 04/03/18 04/04/18 04/04/18 18:59 06:59 18:59 Output Total 350 / 350 Balance -350 / -350 Weight 85 kg Output: Urine 350 / 350 - Constitutional mild distress - Routine HEENT Exam Head: Present: normocephalic, atraumatic Eye: Present: EOMI, PERRL, normal accommodation - Routine Neck Exam Present: supple, JVD - Routine Respiratory Exam Present: decreased breath sounds, crackles - Routine Cardiovascular Exam Present: irregularly irregular - Detailed Cardiovascular Exam: Murmur 1 Type: Present: holosystolic Location: Present: right sternal border Characteristics: Present: crescendo, harsh - Routine Abdominal Exam Present: soft, normoactive bowel sounds - Routine Extremities Exam Present: pulses intact - Routine Skin Exam Present: intact - Routine Neurological Exam Present: alert, oriented X3 - Routine Psychiatric Exam Present: normal affect Results - Labs CBC & Chem 7: 04/04/18 02:00 04/04/18 02:00 Labs: Laboratory Results - last 24 hr 04/04/18 04/04/18 04/04/18 02:00 02:00 02:00 CBC w Diff Auto diff final WBC 10.5 RBC 4.11 L Hgb 13.0 Hct 39.5 MCV 96.1 MCH 31.6 MCHC 33.0 RDW 14.8 Plt Count 278 MPV 8.3 Neut % (Auto) 63.5 Lymph % (Auto) 25.1 Armstrong % (Auto) 8.2 H Eos % (Auto) 2.1 Baso % (Auto) 1.1 Neut # (Auto) 6.7 Lymph # (Auto) 2.6 Armstrong # (Auto) 0.9 Eos # (Auto) 0.2 Baso # (Auto) 0.1 WBC Differential . Differential Comment . PT 10.2 INR 1.0 APTT 28.0 Puncture Site Patient Temperature O2 Saturation ABG pH ABG pCO2 ABG pO2 ABG HCO3 ABG O2 Content ABG Base Excess ABG Methemoglobin Denzel Test Hemoglobin Carboxyhemoglobin O2 Delivery Device Vent Setting Inspired O2 Critical Value Sodium 132 L Potassium 3.9 Chloride 101 Carbon Dioxide 15.7 L Anion Gap 15 BUN 13 Creatinine 1.10 Estimated GFR 67 L POC Glucose Random Glucose 122 H Lactic Acid Calcium 8.0 L Total Bilirubin 0.8 AST 19 ALT 20 Alkaline Phosphatase 82 Troponin I 0.04 B-Natriuretic Peptide Total Protein 6.9 Albumin 3.1 L 04/04/18 04/04/18 04/04/18 02:00 02:50 04:00 CBC w Diff WBC RBC Hgb Hct MCV MCH MCHC RDW Plt Count MPV Neut % (Auto) Lymph % (Auto) Armstrong % (Auto) Eos % (Auto) Baso % (Auto) Neut # (Auto) Lymph # (Auto) Armstrong # (Auto) Eos # (Auto) Baso # (Auto) WBC Differential Differential Comment PT INR APTT Puncture Site Right radial Patient Temperature 98.6 O2 Saturation 92 ABG pH 7.37 L ABG pCO2 23 L* ABG pO2 73 ABG HCO3 13 L* ABG O2 Content 17.0 ABG Base Excess -11.1 L ABG Methemoglobin 1.2 Denzel Test Y Hemoglobin 13.1 Carboxyhemoglobin 1.4 O2 Delivery Device Bipap Vent Setting [id number] Inspired O2 40 Critical Value Yes Sodium Potassium Chloride Carbon Dioxide Anion Gap BUN Creatinine Estimated GFR POC Glucose Random Glucose Lactic Acid 5.8 H* Calcium Total Bilirubin AST ALT Alkaline Phosphatase Troponin I B-Natriuretic Peptide 1206 H Total Protein Albumin 11/24/18 11/24/18 08:37 08:54 CBC w Diff WBC RBC Hgb Hct MCV MCH MCHC RDW Plt Count MPV Neut % (Auto) Lymph % (Auto) Armstrong % (Auto) Eos % (Auto) Baso % (Auto) Neut # (Auto) Lymph # (Auto) Armstrong # (Auto) Eos # (Auto) Baso # (Auto) WBC Differential Differential Comment PT INR APTT Puncture Site Patient Temperature O2 Saturation ABG pH ABG pCO2 ABG pO2 ABG HCO3 ABG O2 Content ABG Base Excess ABG Methemoglobin Denzel Test Hemoglobin Carboxyhemoglobin O2 Delivery Device Vent Setting Inspired O2 Critical Value Sodium Potassium Chloride Carbon Dioxide Anion Gap BUN Creatinine Estimated GFR POC Glucose 282 H Random Glucose Lactic Acid 2.8 H Calcium Total Bilirubin AST ALT Alkaline Phosphatase Troponin I B-Natriuretic Peptide Total Protein Albumin - Imaging Impressions Chest X-Ray 04/04/18 02:01 CONCLUSION: Mild congestive heart failure. Thoracic Aorta CT 04/04/18 03:21 CONCLUSION: 1. No thoracic or abdominal aortic aneurysm or dissection. Moderate to severe atherosclerotic disease. 2. Mild congestive heart failure. 3. Atrophic right kidney. Fatty liver. Assessment and Plan - Assessment (1) Prosthetic cardiac valve calcification Code(s): T82.897A - Other specified complication of cardiac prosthetic devices, implants and grafts, initial encounter Status: Acute (2) Aortic stenosis Code(s): I35.0 - Nonrheumatic aortic (valve) stenosis Status: Acute (3) Acute respiratory failure with hypoxia Code(s): J96.01 - Acute respiratory failure with hypoxia Status: Acute (4) Acidosis, lactic Code(s): E87.2 - Acidosis Status: Acute (5) CHF exacerbation Code(s): I50.9 - Heart failure, unspecified Status: Acute (6) Alcohol dependence Code(s): F10.20 - Alcohol dependence, uncomplicated Status: Chronic (7) Type 2 diabetes mellitus Code(s): E11.9 - Type 2 diabetes mellitus without complications Status: Chronic (8) Atrial fibrillation with RVR Code(s): I48.91 - Unspecified atrial fibrillation Status: Acute - Plan 68y/o male s/p AVR in 2007 as above. He has evidence of prosthetic valve with acute CHF. He also has a h/o significant ETOH abuse and former tobacco abuse asa well as HTN and DM. His risk for REDO sternotomy for AVR is high and he will require left heart cath when stable to assess his coronary arteries for stenoses. He would likely benefit from TAVR and will undergo studies necessary for kkpau-ss-ygxrk TAVR. Dr. Broderick will likely perform cath Friday as long as his respiratory status improves. He should be anticoagulated for AFIB. Will follow. (1) Prosthetic cardiac valve calcification Qualifiers: Encounter type: initial encounter Qualified Code(s): T82.897A - Other specified complication of cardiac prosthetic devices, implants and grafts, initial encounter (2) Aortic stenosis Qualifiers: Cardiac valve disease etiology: nonrheumatic Qualified Code(s): I35.0 - Nonrheumatic aortic (valve) stenosis (5) CHF exacerbation Qualifiers: Heart failure type: combined systolic and diastolic Qualified Code(s): I50.43 - Acute on chronic combined systolic (congestive) and diastolic ( congestive) heart failure (6) Alcohol dependence Qualifiers: Substance use status: unspecified alcohol-induced disorder Qualified Code(s) : F10.29 - Alcohol dependence with unspecified alcohol-induced disorder (7) Type 2 diabetes mellitus Qualifiers: Diabetes mellitus complication status: with hyperglycemia
--- NOTE | 2018-04-04 14:28 | ECHRPT ---
Indication: HEART FAILURE, PROSTHETIC CONCLUSIONS Normal left ventricular size. Mild concentric left ventricular hypertrophy. The left ventricular systolic function is vedyntuw-rk-apjmtbu reduced with an estimated ejection fra ction in the range of 35-40%. The left atrial size is mildly dilated. Mitral annular calcification is present. Cfwg-qa-hfzplmng mitral valve regurgitation. Bovine prosthesis with critical aortic stenosis. Svhn-jw-sxzurnis aortic valve regurgitation. Aortic valve mean gradient is 86 mmHg. There is trace tricuspid valve regurgitation. The estimated pulmonary arterial pressure is 60.1 mmHg. Trivial pulmonary valve regurgitation. BP: / HR: Rhythm: Sinus MEASUREMENTS (Male / Female) Normal Values Technical Quality:Technically difficult study 2D ECHO LV Diastolic Diameter PLAX 4.7 cm 4.2 - 5.9 / 3.9 - 5.3 cm LV Systolic Diameter PLAX 3.9 cm IVS Diastolic Thickness 1.4 cm 0.6 - 1.0 / 0.6 - 0.9 cm LVPW Diastolic Thickness 1.4 cm 0.6 - 1.0 / 0.6 - 0.9 cm LV Relative Wall Thickness 0.6 RV Internal Dim ED PLAX 2.6 cm LVOT Diameter 1.9 cm Aortic Root Diameter 2.7 cm LA Systolic Diameter LX 4.3 cm 3.0 - 4.0 / 2.7 - 3.8 cm DOPPLER AV Peak Velocity 576.0 cm/s AV Peak Gradient 132.7 mmHg AV Mean Gradient 86.0 mmHg AV Velocity Time Integral 142.0 cm LVOT Peak Velocity 65.4 cm/s LVOT Peak Gradient 1.7 mmHg LVOT Velocity Time Integral 13.7 cm AV Area Cont Eq vti 0.3 cm AV Area Cont Eq pk 0.3 cm Mitral E Point Velocity 124.0 cm/s Mitral A Point Velocity 106.0 cm/s Mitral E to A Ratio 1.2 LV E' Lateral Velocity 6.6 cm/s Mitral E to LV E' Lateral Ratio 18.7 LV E' Septal Velocity 5.3 cm/s Mitral E to LV E' Septal Ratio 23.6 TR Peak Velocity 354.0 cm/s TR Peak Gradient 50.1 mmHg Right Atrial Pressure 10.0 mmHg Pulmonary Artery Systolic Pressu 60.1 mmHg Right Ventricular Systolic Press 60.1 mmHg PV Peak Velocity 90.2 cm/s PV Peak Gradient 3.3 mmHg FINDINGS LEFT VENTRICLE Normal left ventricular size. Mild concentric left ventricular hypertrophy. The left ventricular systolic function is tjaubrcx-uv-vlnfbbh reduced with an estimated ejection fra ction in the range of 35-40%. RIGHT VENTRICLE Normal right ventricular size and systolic function. LEFT ATRIUM The left atrial size is mildly dilated. RIGHT ATRIUM The right atrial size is normal. ATRIAL SEPTUM No atrial level shunt is demonstrated by color flow Doppler interrogation. AORTA The aortic root and proximal ascending aorta are not well visualized. MITRAL VALVE Mitral annular calcification is present. Xpdd-qy-tvkheeyw mitral valve regurgitation. AORTIC VALVE Bovine prosthesis with critical aortic stenosis. Iviz-sm-gtkevcur aortic valve regurgitation. Aortic valve mean gradient is 86 mmHg. TRICUSPID VALVE There is trace tricuspid valve regurgitation. The estimated pulmonary arterial pressure is 60.1 mmHg. PULMONARY VALVE Trivial pulmonary valve regurgitation. VESSELS The inferior vena cava was not well visualized. PERICARDIUM No pericardial effusion. Francisco Rodgers MD, FACC, [facility] [place] (Electronically Signed) Final Date:04 April 2018 14:26
--- NOTE | 2018-04-04 14:28 | ECG ---
Date Performed: 04/04/2018 Time Performed: 02:11:56 PTAGE: 68 years EKG: ATRIAL FIBRILLATION SEPTAL MYOCARDIAL INFARCTION MODERATE T-WAVE ABNORMALITY, CONSIDER LATE RAL ISCHEMIA CONSIDER ANTEROSEPTAL MYOCARDIAL INFARCTION, AGE INDETERMINATE ABNORMAL ECG PREVIOUS TRACING : 09/17/2013 14.13 DOCTOR: Francisco Rodgers Interpretating Date/Time 04/06/2018 07:02:08
[2018-04-04 14:49] LABS: Alanine Aminotransferase 17 U/L (12-78); Albumin 3.2 g/dL (3.4-5.0); Anion Gap 10 meq/L (5-15); Aspartate Aminotransferase 16 U/L (15-37); Blood Urea Nitrogen 18 mg/dL (7-18); Calcium 8.5 mg/dL (8.5-10.1); Carbon Dioxide 20.6 meq/L (21.0-32.0); Chloride 104 meq/L (98-107); Glomerular Filtration Rate 66 mL/min (>89); Glucose,Random 213 mg/dL (74-106); Potassium 4.3 meq/L (3.5-5.1); Sodium 135 meq/L (136-145)
[2018-04-04 14:51] LABS: Alkaline Phosphatase 80 U/L (45-117); Total Protein 6.9 g/dL (6.4-8.2)
[2018-04-04] MEDS: Chlorhexidine Gluconate 2% 1 Pack (2 Cloths) TOPICAL SCH (16:41)
[2018-04-04] MEDS: MethylPREDNISolone Sod Succinate Inj 40 MG/ML Vial IV.PUSH SCH (17:05)
[2018-04-04] MEDS: LORazepam 0.5 MG Tablet PO PRN ×2 (17:05→22:46)
[2018-04-04 18:31] LABS: Magnesium 1.7 mg/dL (1.5-2.5)
[2018-04-05] MEDS: Insulin NovoLIN Regular Correctional Sugar Inj SQ SCH ×5 (00:27→21:01)
[2018-04-05] MEDS: MethylPREDNISolone Sod Succinate Inj 40 MG/ML Vial IV.PUSH SCH ×3 (00:27→20:58)
--- NOTE | 2018-04-05 04:39 | XR ---
EXAM DATE: 04/05/2018 4:27 AM EST AGE/SEX: 68 years / Male INDICATIONS: Shortness of breath, possible pulmonary disease. CLINICAL DATA: This is the patient's subsequent encounter. Patient reports that signs and symptoms h ave been present for 2 days and indicates a pain score of 0/10. MEDICAL/SURGICAL HISTORY: Hypertension. Diabetes. Hypercholesterolemia. CABG. Valve replaceme nt. COMPARISON: [facility], CHEST 1V SINGLE AP, 04/04/2018. . FINDINGS: Bilateral mostly basilar airspace disease and small effusions similar to April 04. No pneumothorax . Previous sternotomy. CONCLUSION: Stable basilar airspace disease and small pleural effusions compared with April 04. Electronically signed by: Mick Becerra MD 04/05/2018 4:37 AM EST
[2018-04-05 05:15] LABS: Baso % (Auto) 0.2 % (0.0-2.0); Hematocrit 37.2 % (39.0-51.0); Hemoglobin 12.6 gm/dL (13.0-17.0); Lymph # (Auto) 0.7 th/mm3 (1.0-4.8); Lymph % (Auto) 4.7 % (9.0-44.0); Mean Corpuscular HGB Conc 33.9 % (32.0-36.0); Mean Corpuscular Hemoglobin 32.8 pg (27.0-34.0); Mean Corpuscular Volume 96.9 fL (80.0-100.0); Mean Platelet Volume 8.1 fL (7.0-11.0); Mono # (Auto) 0.5 th/mm3 (0.0-0.9); Mono % (Auto) 3.4 % (0.0-8.0); Neut # (Auto) 13.5 th/mm3 (1.8-7.7); Neut % (Auto) 91.7 % (16.0-70.0); Platelet Count 205 th/mm3 (150-450); Red Blood Count 3.84 mil/mm3 (4.50-5.90); White Blood Count 14.7 th/mm3 (4.0-11.0)
[2018-04-05 05:36] LABS: Albumin 3.1 g/dL (3.4-5.0); Anion Gap 13 meq/L (5-15); Aspartate Aminotransferase 27 U/L (15-37); Blood Urea Nitrogen 25 mg/dL (7-18); Calcium 8.3 mg/dL (8.5-10.1); Carbon Dioxide 21.3 meq/L (21.0-32.0); Chloride 104 meq/L (98-107); Glomerular Filtration Rate 56 mL/min (>89); Glucose,Random 238 mg/dL (74-106); Magnesium 1.8 mg/dL (1.5-2.5); Sodium 138 meq/L (136-145)
[2018-04-05 05:40] LABS: Alanine Aminotransferase 15 U/L (12-78); Alkaline Phosphatase 71 U/L (45-117); Total Protein 6.6 g/dL (6.4-8.2)
[2018-04-05] MEDS: Chlorhexidine Gluconate 2% 1 Pack (2 Cloths) TOPICAL SCH (06:00)
[2018-04-05 06:58] LABS: ABG Base Excess -1.4 mmol/L (-2-2); ABG PCO2 33 mmHg (38-42); ABG PO2 106 mmHg (61-120)
--- NOTE | 2018-04-05 07:25 | P.PNCC ---
Subjective Subjective Remarks/Hospital Course: Patient is a 68-year-old male with past medical history significant for DM, HTN, aortic valve replacement 2007 (pericardial tissue valve), irregular heart rate, alcohol abuse/dependence who was brought in by [facility] for sob for a few days. Quit smoking about 10 years ago. Continues to drink heavily approximately 9 beers daily. Does not regularly see a medical laboratory technical officer has irregular heart rate but not sure whether it is atrial fibrillation, takes aspirin not on any anticoagulation. In the ER initially on nasal cannula at 4 L oxygen saturation was only in the mid 80s. Because of diffuse wheezing patient received IV Solu-Medrol 125 mg x1 and breathing treatments and subsequently was placed on BiPAP. Chest x-ray showed evidence of congestive heart failure, BNP was 1200. Patient was given a total of 120 mg of IV Lasix in the [facility] emergency department. Subsequently was transferred to CVICU at [facility] where I evaluated him. Patient also was noted to have severe metabolic acidosis secondary to lactic acidosis 5.8. This appears most likely secondary to poor perfusion. ABG showed pH of 7.37. pCO2 23, PO2 73, bicarb was 13 with a base excess of -11. I evaluated the patient in the ICU. He is on BiPAP in moderate distress. His clinical exam is consistent with CHF exacerbation. 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 And a stat echo had been ordered. Continue IV Lasix for diuresis along with breathing treatments. I am unable to do inotropic support at this time as severe aortic stenosis is not ruled out, also patient is in atrial fibrillation with RVR. Rate controlled with p.o. metoprolol and IV metoprolol as needed. Cardiology also had been consulted SUBJ 04/05: Patient remains in ICU, critical. Some worsening of shortness of breath overnight requiring BiPAP also required 50% oxygen to maintain sats about 90%. Chest x-ray stable pulmonary edema with small bilateral effusions. Currently on IV Lasix 40 mg every 12, will give additional 40 mg now. Showing signs and symptoms of alcohol withdrawal currently on scheduled low-dose Librium and as needed IV and p.o. Ativan. 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), moderately reduced EF 35-40% Objective Vital Signs / I&O: Vital Signs 04/04/18 08:00 04/04/18 08:30 04/04/18 08:35 Temperature Pulse Rate 111 H Respiratory Rate 23 Blood Pressure 112/71 Pulse Oximetry 95 90 L 95 04/04/18 09:00 04/04/18 10:00 04/04/18 11:00 Temperature Pulse Rate 118 H 94 H 86 Respiratory Rate 20 17 Blood Pressure 127/83 122/77 122/73 Pulse Oximetry 96 97 97 04/04/18 13:13 04/04/18 15:00 04/04/18 17:04 Temperature 97.7 F Pulse Rate 99 H 111 H Respiratory Rate 16 19 Blood Pressure 121/81 Pulse Oximetry 96 97 96 04/04/18 19:00 04/04/18 19:28 04/04/18 20:00 Temperature 98.2 F Pulse Rate 117 H 117 H Respiratory Rate 20 Blood Pressure 122/84 Pulse Oximetry 95 95 04/04/18 20:57 04/04/18 21:00 04/04/18 21:02 Temperature Pulse Rate 116 H Respiratory Rate 18 Blood Pressure Pulse Oximetry 96 96 04/04/18 23:00 04/05/18 00:00 04/05/18 03:30 Temperature 98.1 F Pulse Rate 97 H 104 H 92 H Respiratory Rate 20 Blood Pressure 123/84 Pulse Oximetry 95 04/05/18 04:00 04/05/18 04:03 Temperature 97.5 F L Pulse Rate 88 93 H Respiratory Rate 20 14 Blood Pressure 121/63 Pulse Oximetry 97 97 Intake & Output 04/04/18 04/05/18 04/05/18 18:59 06:59 18:59 Intake Total 861.2 / 861.2 240 / 240 Output Total 3615 / 3615 825 / 825 Balance -2753.8 / -2753.8 -585 / -585 Weight 84.5 kg Intake: IV 511.2 / 511.2 MVI-12 Inj 10 ML Thiamine Inj 511.2 / 511.2 100 MG Folvite Inj 1 MG In NS Inj 500 ML @ 125 mls/hr IV.SIG Q24H [facility] Rx#:[id number] Oral 350 / 350 240 / 240 Output: Urine 3615 / 3615 Urine Amount (Catheter) 825 / 825 Indwelling Temp Sensing 825 / 825 Catheter Other: # Voids 1 # Bowel Movements 0 Result Diagrams: 04/05/18 04:55 04/05/18 04:55 Objective Remarks: GENERAL: 68-year-old male who appears older than stated age, moderate distress on BiPAP SKIN: warm/dry. HEAD: Atraumatic. Normocephalic. EYES: Pupils equal and round. No scleral icterus. ENT: No nasal bleeding or discharge. NECK: Trachea midline. Elevated JVD CARDIOVASCULAR: Irregular, A. fib on monitor. Prominent grade 3 systolic murmur heard in the aortic area RESPIRATORY: + accessory muscle use. Bilateral mild expiratory wheezing. Bibasilar crackles. on BiPAP 50% FiO2 GASTROINTESTINAL: Abdomen soft, non-tender, nondistended. Hepatic and splenic margins not palpable. MUSCULOSKELETAL: No obvious deformities. No clubbing. No cyanosis. 1+ Bilateral lower extremity edema. NEUROLOGICAL: Awake and alert. Oriented now but intermittently confused. No obvious cranial nerve deficits. Motor grossly within normal limits. Normal speech. Tremulous Assessment and Plan - Problem List (1) Acute hypoxemic respiratory failure Code(s): J96.01 - Acute respiratory failure with hypoxia Status: Acute (2) CHF exacerbation Code(s): I50.9 - Heart failure, unspecified Status: Acute (3) Atrial fibrillation with RVR Code(s): I48.91 - Unspecified atrial fibrillation Status: Acute (4) Acidosis, lactic Code(s): E87.2 - Acidosis Status: Acute (5) COPD exacerbation Code(s): J44.1 - Chronic obstructive pulmonary disease with (acute) exacerbation Status: Acute (6) Alcohol dependence Code(s): F10.20 - Alcohol dependence, uncomplicated Status: Chronic (7) Type 2 diabetes mellitus Code(s): E11.9 - Type 2 diabetes mellitus without complications Status: Chronic (8) Hypertension Code(s): I10 - Essential (primary) hypertension Status: Chronic (9) S/P AVR (aortic valve replacement) Code(s): Z95.2 - Presence of prosthetic heart valve Status: Chronic - Assessment and Plan Plan: NEURO: Alcohol withdrawal syndrome Alcohol dependence -Currently on scheduled Librium and Ativan as needed for alcohol withdrawal -May require Precedex -Strongly advised to quit drinking -Supplement multivitamin thiamine -Patient drinks about 9 beers daily RESP: Acute hypoxemic respiratory failure Pulmonary edema Probable COPD with exacerbation -Continue BiPAP 04/15. 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 [id number] MR. Prostatic tissue aortic valve with critical aortic stenosis. [id number] AR. -AV mean gradient is 86 mmHg. The estimated pulmonary arterial pressure is 60.1 mmHg. -TAVR evaluation after cardiac cath -Continue Lasix 40 mg every 12, give additional 40 mg now -Continue home aspirin and metoprolol, A. fib rate controlled with beta- blockers. Increase metoprolol to 50 mg every 8 hours -IV heparin per [place] protocol -Metoprolol 2.5 mg IV every 6 hours as needed for heart rate more than 100 -Lactic acidosis has cleared GI: -IV famotidine. Cardiac diet ordered but keep n.p.o. until respiratory status improved : -Monitor renal function closely. Patient had previously refused Post catheter -IV Lasix as above ID: -Monitor closely for evidence of infection -No antibiotics at this time -Leukocytosis secondary to steroids HEME: -Monitor CBC, coags ENDO: Type 2 diabetes -Electrolyte replacement per protocol -Sliding scale insulin PROPH: -Bilateral lower extremity SCDs. IV heparin/famotidine LINES: -Utilize peripheral IVs, central line if needed CC time 40 min discontinuously Patient remains critically ill with hypoxemic respiratory failure, new onset CHF and very critical aortic stenosis. His care is complicated by COPD exacerbation and alcohol withdrawal. Continue ICU care as he is at high risk for acute decompensation and . Possible TAVR evaluation after cardiac cath hopefully tomorrow (2) CHF exacerbation Qualifiers: Heart failure type: combined systolic and diastolic Qualified Code(s): I50.43 - Acute on chronic combined systolic (congestive) and diastolic ( congestive) heart failure (6) Alcohol dependence Qualifiers: Substance use status: unspecified alcohol-induced disorder Qualified Code(s) : F10.29 - Alcohol dependence with unspecified alcohol-induced disorder (7) Type 2 diabetes mellitus Qualifiers: Diabetes mellitus complication status: with hyperglycemia
[2018-04-05] MEDS: Multivitamin Inj 10 ML, Thiamine Inj 100 MG, Folic Acid Inj 1 MG in Sodium Chlor 0.9% I... IV.SIG SCH (07:39)
[2018-04-05] MEDS: Metoprolol Tartrate 50 MG Tablet PO SCH ×2 (08:48→17:44)
[2018-04-05] MEDS: Polyethylene Glycol 3350 17 GM Packet PO SCH ×2 (08:49→20:58)
[2018-04-05] MEDS: Senna/Docusate Sodium 8.6/50 MG Tablet PO SCH ×2 (08:49→20:58)
[2018-04-05] MEDS: Aspirin 325 MG Tablet PO SCH (08:49)
[2018-04-05] MEDS: LORazepam 0.5 MG Tablet PO PRN ×2 (10:07→17:45)
--- NOTE | 2018-04-05 10:16 | P.PNCV ---
- Note Subjective/Hospital Course: dyspnea, hypoxia - improving since admission Lactic acidosis - resolved Objective: Vital Signs - 24 hr 04/04/18 11:00 04/04/18 13:13 04/04/18 15:00 Temperature 97.7 F Pulse Rate 86 99 H Respiratory Rate 17 16 Blood Pressure 122/73 121/81 Pulse Oximetry 97 96 97 04/04/18 17:04 04/04/18 19:00 04/04/18 19:28 Temperature 98.2 F Pulse Rate 111 H 117 H 117 H Respiratory Rate 19 20 Blood Pressure 122/84 Pulse Oximetry 96 95 04/04/18 20:00 04/04/18 20:57 04/04/18 21:00 Temperature Pulse Rate 116 H Respiratory Rate 18 Blood Pressure Pulse Oximetry 95 96 04/04/18 21:02 04/04/18 23:00 04/05/18 00:00 Temperature 98.1 F Pulse Rate 97 H 104 H Respiratory Rate 20 Blood Pressure 123/84 Pulse Oximetry 96 95 04/05/18 03:30 04/05/18 04:00 04/05/18 04:03 Temperature 97.5 F L Pulse Rate 92 H 88 93 H Respiratory Rate 20 14 Blood Pressure 121/63 Pulse Oximetry 97 97 04/05/18 07:00 04/05/18 08:00 04/05/18 09:28 Temperature 97.6 F Pulse Rate 84 Respiratory Rate 12 12 Blood Pressure 102/63 Pulse Oximetry 92 L 92 L 94 L 04/05/18 09:44 04/05/18 09:45 Temperature Pulse Rate 89 Respiratory Rate 18 Blood Pressure Pulse Oximetry 94 L Labs: Laboratory Results - last 12 hr 04/04/18 04/05/18 04/05/18 22:43 00:08 04:55 WBC 14.7 H RBC 3.84 L Hgb 12.6 L Hct 37.2 L MCV 96.9 MCH 32.8 MCHC 33.9 RDW 15.0 Plt Count 205 MPV 8.1 Neut % (Auto) 91.7 H Lymph % (Auto) 4.7 L Gibson % (Auto) 3.4 Eos % (Auto) 0.0 Baso % (Auto) 0.2 Neut # (Auto) 13.5 H Lymph # (Auto) 0.7 L Gibson # (Auto) 0.5 Eos # (Auto) 0.0 Baso # (Auto) 0.0 WBC Differential . Differential Comment Auto diff final APTT 41.2 H Puncture Site Patient Temperature O2 Saturation ABG pH ABG pCO2 ABG pO2 ABG HCO3 ABG O2 Content ABG Base Excess ABG Methemoglobin Denzel Test Hemoglobin Carboxyhemoglobin O2 Delivery Device Vent Setting Inspired O2 Critical Value Sodium Potassium Chloride Carbon Dioxide Anion Gap BUN Creatinine Estimated GFR POC Glucose 295 H Random Glucose Calcium Magnesium Total Bilirubin AST ALT Alkaline Phosphatase Total Protein Albumin 04/05/18 04/05/18 04/05/18 04:55 04:55 05:55 WBC RBC Hgb Hct MCV MCH MCHC RDW Plt Count MPV Neut % (Auto) Lymph % (Auto) Gibson % (Auto) Eos % (Auto) Baso % (Auto) Neut # (Auto) Lymph # (Auto) Gibson # (Auto) Eos # (Auto) Baso # (Auto) WBC Differential Differential Comment APTT 50.5 H D Puncture Site Patient Temperature O2 Saturation ABG pH ABG pCO2 ABG pO2 ABG HCO3 ABG O2 Content ABG Base Excess ABG Methemoglobin Denzel Test Hemoglobin Carboxyhemoglobin O2 Delivery Device Vent Setting Inspired O2 Critical Value Sodium 138 Potassium 4.0 Chloride 104 Carbon Dioxide 21.3 Anion Gap 13 BUN 25 H Creatinine 1.29 Estimated GFR 56 L POC Glucose 235 H Random Glucose 238 H Calcium 8.3 L Magnesium 1.8 Total Bilirubin 1.0 AST 27 ALT 15 Alkaline Phosphatase 71 Total Protein 6.6 Albumin 3.1 L 04/05/18 06:35 WBC RBC Hgb Hct MCV MCH MCHC RDW Plt Count MPV Neut % (Auto) Lymph % (Auto) Gibson % (Auto) Eos % (Auto) Baso % (Auto) Neut # (Auto) Lymph # (Auto) Gibson # (Auto) Eos # (Auto) Baso # (Auto) WBC Differential Differential Comment APTT Puncture Site Right radial Patient Temperature 98.6 O2 Saturation 97 ABG pH 7.44 H ABG pCO2 33 L ABG pO2 106 ABG HCO3 22 ABG O2 Content 16.4 ABG Base Excess -1.4 ABG Methemoglobin 0.2 Denzel Test Present Hemoglobin 11.9 L Carboxyhemoglobin 1.1 O2 Delivery Device Bipap Vent Setting [id number] Inspired O2 50 Critical Value No Sodium Potassium Chloride Carbon Dioxide Anion Gap BUN Creatinine Estimated GFR POC Glucose Random Glucose Calcium Magnesium Total Bilirubin AST ALT Alkaline Phosphatase Total Protein Albumin Result Diagrams: 04/05/18 04:55 04/05/18 04:55 Imaging: Thoracic Aorta CT 04/04/18 03:21 CONCLUSION: 1. No thoracic or abdominal aortic aneurysm or dissection. Moderate to severe atherosclerotic disease. 2. Mild congestive heart failure. 3. Atrophic right kidney. Fatty liver. Chest X-Ray 04/05/18 06:00 CONCLUSION: Stable basilar airspace disease and small pleural effusions compared with April 04. Cardiovascular: IRR Telemetry: AFIB Pulmonary: Bilateral rales GI/: NABS, NT - Plan (1) Prosthetic cardiac valve calcification (2) Aortic stenosis (5) CHF exacerbation (6) Alcohol dependence (7) Type 2 diabetes mellitus Improving hemodynamic and respiratory status, but remains somewhat hypoxic. significant orthopnea as well. May not be ready for cath tomorrow, but will defer to Dr. Broderick. (1) Prosthetic cardiac valve calcification Qualifiers: Encounter type: initial encounter Qualified Code(s): T82.897A - Other specified complication of cardiac prosthetic devices, implants and grafts, initial encounter (2) Aortic stenosis Qualifiers: Cardiac valve disease etiology: nonrheumatic Qualified Code(s): I35.0 - Nonrheumatic aortic (valve) stenosis (5) CHF exacerbation Qualifiers: Heart failure type: combined systolic and diastolic Qualified Code(s): I50.43 - Acute on chronic combined systolic (congestive) and diastolic ( congestive) heart failure (6) Alcohol dependence Qualifiers: Substance use status: unspecified alcohol-induced disorder Qualified Code(s) : F10.29 - Alcohol dependence with unspecified alcohol-induced disorder (7) Type 2 diabetes mellitus Qualifiers: Diabetes mellitus complication status: with hyperglycemia
--- NOTE | 2018-04-05 11:05 | P.PNCA ---
Subjective Interval history: Less SOB Medications and Allergies Active Medications: Active Medications Albuterol (Duoneb Neb (Prn)) 1 ampul NEB Q2HR NEB PRN PRN Reason: WHEEZING Albuterol (Duoneb Neb (Shirley)) 1 ampul NEB Q6HR NEB [facility] Last Admin: 04/05/18 09:43 Dose: 1 ampul Aspirin (Aspirin) 162.5 mg PO DAILY [facility] Last Admin: 04/05/18 08:49 Dose: 162.5 mg Bisacodyl (Dulcolax Supp) 10 mg RECTAL DAILY PRN PRN Reason: if no BM in last 24h Chlordiazepoxide (Librium) 10 mg PO Q8H [facility] Last Admin: 04/05/18 08:49 Dose: 10 mg Chlorhexidine Gluconate (Chlorhexidine 2% Cloth) 3 pack TOPICAL DAILY@0400 [facility] Stop: 04/09/18 03:59 Last Admin: 04/05/18 06:00 Dose: 3 pack Chlorhexidine Gluconate (Chlorhexidine 2% Cloth) 3 pack TOPICAL DAILY@0400 PRN PRN Reason: Extra cloth needed Stop: 04/09/18 03:59 Dextrose (D50w Vial) 50 ml IV.PUSH UNSCH PRN PRN Reason: PER HYPOGLYCEMIA PROTOCOL Furosemide (Lasix Inj) 40 mg IV.PUSH BID@0900,1800 [facility] Last Admin: 04/05/18 08:50 Dose: 40 mg Glucagon (Glucagon Inj) 1 mg OTHER PRN PRN PRN Reason: for Hypoglycemia Protocol Magnesium Sulfate 4 gm/ Sodium (Chloride) 100 mls @ 50 mls/hr IV.SIG UNSCH PRN PRN Reason: For Magnesium 0.9 - 1.1 mg/dL Magnesium Sulfate 2 gm/ Sodium (Chloride) 100 mls @ 50 mls/hr IV.SIG UNSCH PRN PRN Reason: For Magnesium 1.2 - 1.6 mg/dL Potassium Chloride (Kcl 40 Meq Premix Inj) 40 meq in 100 mls @ 25 mls/hr IV.SIG Q2H PRN PRN Reason: For Potassium 2.8 - 3.2 mEq/L Potassium Chloride (Kcl 20 Meq Premix Inj) 20 meq in 100 mls @ 50 mls/hr IV.SIG Q2H PRN PRN Reason: For Potassium 3.3 - 3.5 mEq/L Potassium Chloride (Kcl 40 Meq Premix Inj) 40 meq in 100 mls @ 25 mls/hr IV.SIG UNSCH PRN PRN Reason: For Potassium 3.3 - 3.5 mEq/L Potassium Chloride (Kcl 20 Meq Premix Inj) 20 meq in 100 mls @ 50 mls/hr IV.SIG Q2H PRN PRN Reason: For Potassium 2.8 - 3.2 mEq/L Sodium Phosphate 30 mmol/ (Sodium Chloride) 260 mls @ 42 mls/hr IV.SIG UNSCH PRN PRN Reason: For Phosphorus < 2.5 mg/dL Potassium Phosphate 30 mmol/ (Sodium Chloride) 260 mls @ 42 mls/hr IV.SIG UNSCH PRN PRN Reason: SEE LABEL COMMENTS Multivitamins 10 ml/ Thiamine HCl 100 mg/ Folic Acid 1 mg/Sodium Chloride 511.2 mls @ 125 mls/hr IV.SIG Q24H [facility] Stop: 04/06/18 12:06 Last Admin: 04/05/18 07:39 Dose: 125 mls/hr Heparin Sodium/Dextrose (Heparin/D5w 25,000 U/250 Ml) 25,000 unit in 250 mls @ 10 mls/hr IV.CONT TITRATE PRN; Protocol PRN Reason: Per Protocol Last Titration: 04/05/18 00:00 Dose: 1,000 units/hr, 10 mls/hr Insulin Human Regular (Novolin R Correctional Sugar Inj) 0 units SQ Q6HR [facility]LEY; Protocol Last Admin: 04/05/18 05:59 Dose: 4 units Lactulose (Lactulose Liq) 30 ml PO BID [facility] Last Admin: 04/05/18 08:49 Dose: Not Given Lorazepam (Ativan Inj) 1 mg IV.PUSH Q4H PRN PRN Reason: agitation,withdrawal Lorazepam (Ativan) 0.5 mg PO Q6H PRN PRN Reason: anxiety/withdrawal Last Admin: 04/05/18 10:07 Dose: 0.5 mg Magnesium Oxide (Mag-Ox) 800 mg PO UNSCH PRN PRN Reason: For Magnesium 1.2 - 1.6 mg/dL Methylprednisolone Sodium Succinate (Solumedrol Inj) 40 mg IV.PUSH Q12H [facility] Last Admin: 04/05/18 07:39 Dose: 40 mg Metoprolol Tartrate (Lopressor Inj) 2.5 mg IV.PUSH Q6H PRN PRN Reason: HR>100 Metoprolol Tartrate (Lopressor) 50 mg PO Q8H [facility] Last Admin: 04/05/18 08:48 Dose: 50 mg Ondansetron HCl (Zofran Inj) 4 mg IV.PUSH Q6H PRN PRN Reason: NAUSEA OR VOMITING Polyethylene Glycol (Miralax) 17 gm PO BID [facility] Last Admin: 04/05/18 08:49 Dose: 17 gm Potassium Bicarb/Potassium Chloride (K-Lyte Cl Eff) 50 meq PO UNSCH PRN PRN Reason: For Potassium 3.3 - 3.5 mEq/L Potassium Chloride (K-Dur) 20 meq PO BID [facility] Last Admin: 04/05/18 08:49 Dose: 20 meq Potassium Phosphate (K-Phos Original) 2,000 mg PO Q4H PRN PRN Reason: Phosphorus Less Than 2.5 mg/dL Potassium Phosphate (K-Phos Original) 2,000 mg PO UNSCH PRN PRN Reason: SEE LABEL COMMENTS Pravastatin Sodium (Pravachol) 80 mg PO HS [facility] Last Admin: 04/04/18 21:24 Dose: 80 mg Senna/Docusate Sodium (Lisa-Colace) 1 tab PO BID [facility] Last Admin: 04/05/18 08:49 Dose: 1 tab Sodium Chloride (Ns Flush) 2 ml IV.FLUSH UNSCH PRN PRN Reason: FLUSH AFTER USING IV ACCESS Allergies Allergy/AdvReac Type Severity Reaction Status Date / Time No Known Allergies Allergy Verified 04/04/18 02:42 Home Medications Medication Instructions Recorded Confirmed Type aspirin 162 mg PO DAILY 04/04/18 04/04/18 History glipizide 5 mg PO DAILY 04/04/18 04/04/18 History losartan 25 mg PO DAILY 04/04/18 04/04/18 History metformin 500 mg PO BID 04/04/18 04/04/18 History metoprolol tartrate 50 mg PO BID 04/04/18 04/04/18 History nifedipine 60 mg PO DAILY 04/04/18 04/04/18 History simvastatin 40 mg PO QPM 04/04/18 04/04/18 History Physical Exam Vital signs: Vital Signs 04/04/18 13:13 04/04/18 15:00 04/04/18 17:04 Temperature 97.7 F Pulse Rate 99 H 111 H Respiratory Rate 16 19 Blood Pressure 121/81 Pulse Oximetry 96 97 96 04/04/18 19:00 04/04/18 19:28 04/04/18 20:00 Temperature 98.2 F Pulse Rate 117 H 117 H Respiratory Rate 20 Blood Pressure 122/84 Pulse Oximetry 95 95 04/04/18 20:57 04/04/18 21:00 04/04/18 21:02 Temperature Pulse Rate 116 H Respiratory Rate 18 Blood Pressure Pulse Oximetry 96 96 04/04/18 23:00 04/05/18 00:00 04/05/18 03:30 Temperature 98.1 F Pulse Rate 97 H 104 H 92 H Respiratory Rate 20 Blood Pressure 123/84 Pulse Oximetry 95 04/05/18 04:00 04/05/18 04:03 04/05/18 07:00 Temperature 97.5 F L 97.6 F Pulse Rate 88 93 H 84 Respiratory Rate 20 14 12 Blood Pressure 121/63 102/63 Pulse Oximetry 97 97 92 L 04/05/18 08:00 04/05/18 09:28 04/05/18 09:44 Temperature Pulse Rate 89 Respiratory Rate 12 18 Blood Pressure Pulse Oximetry 92 L 94 L 04/05/18 09:45 Temperature Pulse Rate Respiratory Rate Blood Pressure Pulse Oximetry 94 L Intake & Output 04/04/18 04/05/18 04/05/18 18:59 06:59 18:59 Intake Total 861.2 / 861.2 240 / 240 Output Total 3615 / 3615 825 / 825 Balance -2753.8 / -2753.8 -585 / -585 Weight 84.5 kg Intake: IV 511.2 / 511.2 MVI-12 Inj 10 ML Thiamine Inj 511.2 / 511.2 100 MG Folvite Inj 1 MG In NS Inj 500 ML @ 125 mls/hr IV.SIG Q24H [facility] Rx#:[id number] Oral 350 / 350 240 / 240 Output: Urine 3615 / 3615 Urine Amount (Catheter) 825 / 825 Indwelling Temp Sensing 825 / 825 Catheter Other: # Voids 1 # Bowel Movements 0 Narrative: GENERAL: 68-year-old male who appears older than stated age, moderate distress on BiPAP SKIN: warm/dry. HEAD: Atraumatic. Normocephalic. EYES: Pupils equal and round. No scleral icterus. ENT: No nasal bleeding or discharge. NECK: Trachea midline. Elevated JVD CARDIOVASCULAR: S1S2 RRR. Prominent grade 2 severe murmur RUSB RESPIRATORY: Much less use of accesory muscles today. Bibasilar crackles. GASTROINTESTINAL: Abdomen soft, non-tender, nondistended. Hepatic and splenic margins not palpable. MUSCULOSKELETAL: No obvious deformities. No clubbing. No cyanosis. Trace ankle edema. NEUROLOGICAL: Awake and alert. No obvious cranial nerve deficits. Motor grossly within normal limits. Normal speech. - Urinary Catheter Management Indwelling Temp Sensing Catheter Cath placed during this visit: yes Reason for continuing: Hourly intake/output Insertion date: 04/04/18 Insertion time: 19:45 Results 04/05/18 04:55 04/05/18 04:55 Cardiac Enzymes 04/04/18 04/04/18 04/04/18 Range/Units 02:00 02:00 10:25 AST 19 (15-37) U/L Troponin I 0.04 0.04 (0.02-0.05) ng/mL B-Natriuretic Peptide 1206 H (0-100) pg/mL 04/04/18 04/05/18 Range/Units 14:15 04:55 AST 16 27 (15-37) U/L Troponin I (0.02-0.05) ng/mL B-Natriuretic Peptide (0-100) pg/mL Coagulation 04/04/18 04/04/18 04/04/18 Range/Units 02:00 02:00 10:25 PT 10.2 10.7 (9.8-11.6) sec APTT 28.0 26.2 (23.4-31.7) sec B-Natriuretic Peptide 1206 H (0-100) pg/mL 04/04/18 04/04/18 04/05/18 Range/Units 16:45 22:43 04:55 PT (9.8-11.6) sec APTT 42.9 H D 41.2 H 50.5 H D (23.4-31.7) sec B-Natriuretic Peptide (0-100) pg/mL CBC 04/04/18 04/05/18 Range/Units 02:00 04:55 WBC 10.5 14.7 H (4.0-11.0) th/mm3 RBC 4.11 L 3.84 L (4.50-5.90) mil/mm3 Hgb 13.0 12.6 L (13.0-17.0) gm/dL Hct 39.5 37.2 L (39.0-51.0) % Plt Count 278 205 (150-450) th/mm3 Neut # (Auto) 6.7 13.5 H (1.8-7.7) th/mm3 Lymph # (Auto) 2.6 0.7 L (1.0-4.8) th/mm3 [place] # (Auto) 0.9 0.5 (0.0-0.9) th/mm3 Eos # (Auto) 0.2 0.0 (0.0-0.4) th/mm3 Baso # (Auto) 0.1 0.0 (0.0-0.2) th/mm3 Comprehensive Metabolic Panel 04/04/18 04/04/18 04/05/18 Range/Units 02:00 14:15 04:55 Sodium 132 L 135 L 138 (136-145) meq/L Potassium 3.9 4.3 4.0 (3.5-5.1) meq/L Chloride 101 104 104 (98-107) meq/L Carbon Dioxide 15.7 L 20.6 L 21.3 (21.0-32.0) meq/L BUN 13 18 25 H (7-18) mg/dL Creatinine 1.10 1.11 1.29 (0.60-1.30) mg/dL Calcium 8.0 L 8.5 8.3 L (8.5-10.1) mg/dL AST 19 16 27 (15-37) U/L ALT 20 17 15 (12-78) U/L Alkaline Phosphatase 82 80 71 (45-117) U/L Total Protein 6.9 6.9 6.6 (6.4-8.2) g/dL Albumin 3.1 L 3.2 L 3.1 L (3.4-5.0) g/dL Intake and Output 04/04/18 04/05/18 04/05/18 22:59 06:59 14:59 Intake Total 350 / 350 240 / 240 Output Total 2089 / 2089 825 / 825 Balance -1740 / -1740 -585 / -585 Intake: Oral 350 / 350 240 / 240 Output: Urine 2089 / 2089 Urine Amount (Catheter) 825 / 825 Indwelling Temp Sensing 825 / 825 Catheter Other: # Voids 1 # Bowel Movements 0 Weight 84.5 kg - Imaging and Cardiology Imaging: Impressions Chest X-Ray 04/04/18 02:01 CONCLUSION: Mild congestive heart failure. Thoracic Aorta CT 04/04/18 03:21 CONCLUSION: 1. No thoracic or abdominal aortic aneurysm or dissection. Moderate to severe atherosclerotic disease. 2. Mild congestive heart failure. 3. Atrophic right kidney. Fatty liver. Chest X-Ray 04/05/18 06:00 CONCLUSION: Stable basilar airspace disease and small pleural effusions compared with April 04. Assessment and Plan - Assessment (1) Stenosis of prosthetic aortic valve Code(s): I35.0 - Nonrheumatic aortic (valve) stenosis Status: Acute (2) CHF (congestive heart failure) Code(s): I50.9 - Heart failure, unspecified Status: Acute (3) Alcohol abuse Code(s): F10.10 - Alcohol abuse, uncomplicated Status: Acute (4) COPD exacerbation Code(s): J44.1 - Chronic obstructive pulmonary disease with (acute) exacerbation Status: Acute - Plan Plan cardiac cath, poss PCI once he can tolerate being supine. Hopefully can have TAVR instead of open redo. NPO after MN for possible cath.
[2018-04-05] MEDS: Heparin Drip 25,000 UNIT/250 ML BAG IV.CONT PRN (11:22)
[2018-04-05] MEDS: Insulin Detemir Inj 1,000 UNIT/10 ML Vial SQ SCH (20:59)
[2018-04-06] MEDS: Metoprolol Tartrate 50 MG Tablet PO SCH ×4 (01:16→18:12)
[2018-04-06] MEDS: Insulin NovoLIN Regular Correctional Sugar Inj SQ SCH ×5 (02:51→22:11)
[2018-04-06] MEDS: Chlorhexidine Gluconate 2% 1 Pack (2 Cloths) TOPICAL SCH (03:41)
--- NOTE | 2018-04-06 03:44 | XR ---
EXAM DATE: 04/06/2018 3:35 AM EST AGE/SEX: 68 years / Male INDICATIONS: Shortness of breath, possible pulmonary disease. CLINICAL DATA: This is the patient's subsequent encounter. Patient reports that signs and symptoms h ave been present for 3 days and indicates a pain score of 5/10. MEDICAL/SURGICAL HISTORY: Hypertension. Diabetes. Hypercholesterolemia. CABG. Valve replaceme nt. [place] [facility] [place]. . FINDINGS: There is bilateral mostly basilar airspace disease and pleural effusions. Previous sternotomy. No pne umothorax. No significant change from April 05. CONCLUSION: Bilateral mostly basilar airspace disease with small effusions similar to April 05. Electronically signed by: Mick Becerra MD 04/06/2018 3:43 AM EST
[2018-04-06 04:40] LABS: Baso % (Auto) 0.1 % (0.0-2.0); Hematocrit 34.4 % (39.0-51.0); Hemoglobin 11.9 gm/dL (13.0-17.0); Lymph # (Auto) 0.6 th/mm3 (1.0-4.8); Lymph % (Auto) 3.9 % (9.0-44.0); Mean Corpuscular HGB Conc 34.5 % (32.0-36.0); Mean Corpuscular Hemoglobin 33.2 pg (27.0-34.0); Mean Corpuscular Volume 96.1 fL (80.0-100.0); Mean Platelet Volume 8.2 fL (7.0-11.0); Mono # (Auto) 0.6 th/mm3 (0.0-0.9); Mono % (Auto) 4.2 % (0.0-8.0); Neut # (Auto) 13.7 th/mm3 (1.8-7.7); Neut % (Auto) 91.8 % (16.0-70.0); Platelet Count 170 th/mm3 (150-450); Red Blood Count 3.58 mil/mm3 (4.50-5.90); Red Cell Distribution Width 15.2 % (11.6-17.2); White Blood Count 14.9 th/mm3 (4.0-11.0)
[2018-04-06 05:13] LABS: Alanine Aminotransferase 34 U/L (12-78); Albumin 2.9 g/dL (3.4-5.0); Anion Gap 7 meq/L (5-15); Aspartate Aminotransferase 63 U/L (15-37); Blood Urea Nitrogen 23 mg/dL (7-18); Calcium 8.1 mg/dL (8.5-10.1); Carbon Dioxide 27.4 meq/L (21.0-32.0); Chloride 106 meq/L (98-107); Glomerular Filtration Rate 61 mL/min (>89); Glucose,Random 157 mg/dL (74-106); Magnesium 1.9 mg/dL (1.5-2.5); Potassium 4.4 meq/L (3.5-5.1); Sodium 140 meq/L (136-145)
[2018-04-06 05:17] LABS: Alkaline Phosphatase 59 U/L (45-117); Total Protein 6.1 g/dL (6.4-8.2)
--- NOTE | 2018-04-06 07:56 | P.PNCC ---
Subjective Subjective Remarks/Hospital Course: Patient is a 68-year-old male with past medical history significant for DM, HTN, aortic valve replacement 2007 (pericardial tissue valve), irregular heart rate, alcohol abuse/dependence who was brought in by [facility] for sob for a few days. Quit smoking about 10 years ago. Continues to drink heavily approximately 9 beers daily. Does not regularly see a trans router has irregular heart rate but not sure whether it is atrial fibrillation, takes aspirin not on any anticoagulation. In the ER initially on nasal cannula at 4 L oxygen saturation was only in the mid 80s. Because of diffuse wheezing patient received IV Solu-Medrol 125 mg x1 and breathing treatments and subsequently was placed on BiPAP. Chest x-ray showed evidence of congestive heart failure, BNP was 1200. Patient was given a total of 120 mg of IV Lasix in the [facility] emergency department. Subsequently was transferred to CVICU at [facility] where I evaluated him. Patient also was noted to have severe metabolic acidosis secondary to lactic acidosis 5.8. This appears most likely secondary to poor perfusion. ABG showed pH of 7.37. pCO2 23, PO2 73, bicarb was 13 with a base excess of -11. I evaluated the patient in the ICU. He is on BiPAP in moderate distress. His clinical exam is consistent with CHF exacerbation. 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 And a stat echo had been ordered. Continue IV Lasix for diuresis along with breathing treatments. I am unable to do inotropic support at this time as severe aortic stenosis is not ruled out, also patient is in atrial fibrillation with RVR. Rate controlled with p.o. metoprolol and IV metoprolol as needed. Cardiology also had been consulted SUBJ 04/05: Patient remains in ICU, critical. Some worsening of shortness of breath overnight requiring BiPAP also required 50% oxygen to maintain sats about 90%. Chest x-ray stable pulmonary edema with small bilateral effusions. Currently on IV Lasix 40 mg every 12, will give additional 40 mg now. Showing signs and symptoms of alcohol withdrawal currently on scheduled low-dose Librium and as needed IV and p.o. Ativan. 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 Not requiring BiPAP at this time. Chest x-ray unchanged with mild pulmonary edema mild bilateral effusion however clinically improved. Urine output more than 3 L in 24 hours. Therapeutic on heparin. Will increase metoprolol after cardiac cath today. Discussed with Dr. Broderick Objective Vital Signs / I&O: Vital Signs 04/05/18 08:00 04/05/18 09:28 04/05/18 09:44 Temperature Pulse Rate 89 Respiratory Rate 12 18 Blood Pressure Pulse Oximetry 92 L 94 L 04/05/18 09:45 04/05/18 11:10 04/05/18 12:00 Temperature 97.7 F Pulse Rate 89 Respiratory Rate 18 12 Blood Pressure 125/86 Pulse Oximetry 94 L 96 04/05/18 15:00 04/05/18 16:00 04/05/18 16:14 Temperature 97.4 F L Pulse Rate 81 Respiratory Rate 17 14 Blood Pressure 102/67 Pulse Oximetry 95 95 04/05/18 17:14 04/05/18 17:28 04/05/18 17:53 Temperature Pulse Rate 81 Respiratory Rate 20 Blood Pressure Pulse Oximetry 94 L 92 L 04/05/18 19:00 04/05/18 21:36 04/05/18 22:06 Temperature 99.0 F Pulse Rate 100 H 106 H Respiratory Rate 18 22 Blood Pressure 110/76 Pulse Oximetry 95 94 L 93 L 04/05/18 23:00 04/06/18 03:00 04/06/18 04:10 Temperature 98.9 F 98.9 F Pulse Rate 87 78 113 H Respiratory Rate 16 17 20 Blood Pressure 111/66 101/65 Pulse Oximetry 94 L 94 L 04/06/18 07:16 04/06/18 07:18 Temperature 97.7 F Pulse Rate 103 H 97 H Respiratory Rate 18 Blood Pressure 115/70 Pulse Oximetry 91 L Intake & Output 04/05/18 04/06/18 04/06/18 18:59 06:59 18:59 Intake Total 1549.2 / 1549.2 597 / 597 Output Total 1775 / 1775 1500 / 1500 Balance -225.8 / -225.8 -903 / -903 Weight 82 kg Intake: IV 829.2 / 829.2 117 / 117 Heparin/D5W 25,000 U/250 mL 25, 318 / 318 117 / 117 000 unit In 250 ml @ 1,000 UNITS/HR 10 mls/hr IV.CONT TITRATE PRN Rx#:[id number] MVI-12 Inj 10 ML Thiamine Inj 511.2 / 511.2 100 MG Folvite Inj 1 MG In NS Inj 500 ML @ 125 mls/hr IV.SIG Q24H [facility] Rx#:[id number] Oral 720 / 720 480 / 480 Output: Urine Amount (Catheter) 177 / 1775 1500 / 1500 Indwelling Temp Sensing 177 / 177 1500 / 1500 Catheter Other: Date of Last Bowel Movement 04/05/18 # Bowel Movements 1 Result Diagrams: 04/06/18 04:17 04/06/18 04:17 Objective Remarks: GENERAL: 68-year-old male who appears older than stated age, moderate distress on BiPAP SKIN: warm/dry. HEAD: Atraumatic. Normocephalic. EYES: Pupils equal and round. No scleral icterus. ENT: No nasal bleeding or discharge. NECK: Trachea midline. Elevated JVD CARDIOVASCULAR: Irregular, A. fib on monitor, tachycardic. Prominent grade 3 systolic murmur heard in the aortic area RESPIRATORY: + accessory muscle use. Mild expiratory wheezing. Bibasilar crackles. on FM GASTROINTESTINAL: Abdomen soft, non-tender, nondistended. Hepatic and splenic margins not palpable. MUSCULOSKELETAL: No obvious deformities. No clubbing. No cyanosis. 1+ Bilateral lower extremity edema. NEUROLOGICAL: Awake and alert. Oriented now. No obvious cranial nerve deficits. Motor grossly within normal limits. Normal speech. Tremulous Assessment and Plan - Problem List (1) Acute hypoxemic respiratory failure Code(s): J96.01 - Acute respiratory failure with hypoxia Status: Acute (2) CHF exacerbation Code(s): I50.9 - Heart failure, unspecified Status: Acute (3) Atrial fibrillation with RVR Code(s): I48.91 - Unspecified atrial fibrillation Status: Acute (4) Acidosis, lactic Code(s): E87.2 - Acidosis Status: Acute (5) COPD exacerbation Code(s): J44.1 - Chronic obstructive pulmonary disease with (acute) exacerbation Status: Acute (6) Alcohol dependence Code(s): F10.20 - Alcohol dependence, uncomplicated Status: Chronic (7) Type 2 diabetes mellitus Code(s): E11.9 - Type 2 diabetes mellitus without complications Status: Chronic (8) Hypertension Code(s): I10 - Essential (primary) hypertension Status: Chronic (9) S/P AVR (aortic valve replacement) Code(s): Z95.2 - Presence of prosthetic heart valve Status: Chronic - Assessment and Plan Plan: NEURO: Alcohol withdrawal syndrome Alcohol dependence -Currently on scheduled Librium and Ativan as needed for alcohol withdrawal -Strongly advised to quit drinking -Supplement multivitamin thiamine -Patient drinks about 9 beers daily RESP: Acute hypoxemic respiratory failure Pulmonary edema Probable COPD with exacerbation -Continue PRN BiPAP 04/15. 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 Prostatic tissue aortic valve with critical aortic stenosis. [id number] AR. AV mean gradient is 86 mmHg. -The estimated pulmonary arterial pressure is 60.1 mmHg. [id number] MR. -TAVR vs open AVR decision based on cardiac cath findings -Continue Lasix 40 mg every 12 -Continue home aspirin and metoprolol, A. fib rate controlled with beta- blockers. -Increase metoprolol to 75 mg every 8 hours for better rate control -IV heparin per [place] protocol -Metoprolol 2.5 mg IV every 6 hours as needed for heart rate more than 100 -Lactic acidosis has cleared GI: -IV famotidine. Cardiac diet ordered but keep n.p.o. for cath : -Monitor renal function closely. Patient had previously refused Post catheter , now has 1 -IV Lasix as above ID: -Monitor closely for evidence of infection -No antibiotics at this time -Leukocytosis secondary to steroids HEME: -Monitor CBC, coags ENDO: Type 2 diabetes Hyperglycemia poorly controlled -Electrolyte replacement per protocol -Sliding scale insulin, with AC and at bedtime pre-meal insulin and also started on Levemir 10 units nightly PROPH: -Bilateral lower extremity SCDs. IV heparin/famotidine LINES: -Utilize peripheral IVs, central line if needed Level 3 Patient remains critically ill with hypoxemic respiratory failure, new onset CHF and very critical aortic stenosis. His care is complicated by COPD exacerbation and alcohol withdrawal. Continue ICU care as he is at high risk for acute decompensation and . Possible TAVR vs open AVR decision after cardiac cath today (2) CHF exacerbation Qualifiers: Heart failure type: combined systolic and diastolic Qualified Code(s): I50.43 - Acute on chronic combined systolic (congestive) and diastolic ( congestive) heart failure (6) Alcohol dependence Qualifiers: Substance use status: unspecified alcohol-induced disorder Qualified Code(s) : F10.29 - Alcohol dependence with unspecified alcohol-induced disorder (7) Type 2 diabetes mellitus Qualifiers: Diabetes mellitus complication status: with hyperglycemia
[2018-04-06] MEDS ORDERED: Heparin/NS PF Inj 1,000 ML ONE (08:12)
[2018-04-06] MEDS ORDERED: Heparin 10,000 UNITS/10 ML Vial (for IV use) ONE (08:15)
[2018-04-06] MEDS ORDERED: Lidocaine PF 1% Inj 30 ML Vial ONE (08:26)
[2018-04-06] MEDS: Polyethylene Glycol 3350 17 GM Packet PO SCH ×2 (09:06→21:21)
[2018-04-06] MEDS: Aspirin 325 MG Tablet PO SCH (09:06)
[2018-04-06] MEDS: MethylPREDNISolone Sod Succinate Inj 40 MG/ML Vial IV.PUSH SCH ×2 (09:07→21:06)
[2018-04-06] MEDS: Senna/Docusate Sodium 8.6/50 MG Tablet PO SCH ×2 (09:07→21:07)
--- NOTE | 2018-04-06 09:35 | CATHPROC ---
Exposed Vocals HIS Report Study Information Study Number Admission Scheduled Start Study Start [id number] Apr 04 2018 3:40AM 04/06/2018 Apr 06 2018 8:02AM [place] [facility] Cardiac Catheterization Admit Source Facility Department Other [facility] - Manager Solution Physician and Clinical Staff Initial Hans Lazar Galley Cook Shawn Glynn,RUBÉN Galley Cook Trudy Jeffery,RUBÉN Other cathlab, cathlab Recorder Jo Knight,DISTRICT PLANT SUPERVISOR TECH2 Scrub Nevaeh Salinas RCIS TECH2 Procedures Performed Procedure Location (Site) Vessel Name Coronary Angiograms LCA Left Coronary Coronary Angiograms RCA Right Coronary L Heart Cath Equipment Time Flatbed Owner Operator Description Size Mfg Part Number Used/Scraped TRANSDUCER, TRUWAVE [id number] 08:35 BRYANT LICONA * Used W/STOCKCOCK *[id number] INTRODUCER SET, 08:40 [employer] FR 5 [id number] *[id number] Used MICROPUNCTURE STIFF [id number] *[id number] [id number] *[id number] 08:35 [employer] BLANKET,WARM AIR CCL * Used *[id number] 08:35 [employer] PACK, CCL CUSTOM * Used *[id number] 08:35 [employer] PACER PEN, SKIN DUAL W/ RULER * Used *[id number] 08:35 [employer] SA MEDICAL SHEATH, FR6.5 PRELUDE 11CM FR 6.5 038ACT Used *[id number] 08:35 [employer] MEDICAL WIRE, 3MMJ .035 180CM 180CM Used *[id number] 08:35 NAMIC MANIFOLD, 4 PORT * Used *[id number] 08:35 [employer] OMNIPAQUE, 350 MG, 150ML 150ML [id number] Used [id number] 08:35 [employer] MEDICAL SHEATH, FR7 TERUMO (10CM) FR 7 Used *[id number] History: Current Medications Medication Dosage/Unit Route Frequency Last Date/Time Taken Albuterol ASA Glucophage Insulin LOPRESSOR K-Dur History: Allergies Allergy Reaction No Known Allergies History: Risk Factors Family History of Hypertension Dyslipidemia Previous MT Previous Heart Failure Premature CAD Yes Yes No Yes No Prior Valve Prior PCI Prior CABG Surgery No No No Cerebrovascular Peripheral Artery Chronic Lung On Dialysis Diabetes Diabetes Therapy Disease Disease Disease No No No Yes Yes Oral History: Symptoms/Diagnosis Selection Items SOB History: CV Disease Selection Items MT History: Stress Tests Stress or Imaging Studies Performed No History: Other Disease Selection Items HTN History: Other Current Smoker Method Quit Packs a Day Years Used Pack Years No Cigarettes 10 Years Ago 1 30 30 Labs Hgb (g/dl) Hct (%) RBC (MIL/MM3) WBC (l/cumm) Platelets (thousands) 11.60-17.00 35.00-51.00 4.00-5.90 4.00-11.00 150.00-450.00 11.9 34.4 3.5 14.9 170 Glucose (mg/dl) BUN (mg/dl) Creatinine (mg/dl) BUN:Creatinine (1:x) 74.00-106.00 7.00-18.00 0.50-1.30 10.00-20.00 157 23 1.2 19.2 Na (meq/l) K (meq/l) Cl (meq/l) CO2 (mmol/L) Ca (mg/dl) 136.00-145.00 3.50-5.10 98.00-107.00 21.00-32.00 8.50-10.10 140 4.4 106 27.4 8.1 PTT (sec) INR (PTT:PT) 24.30-30.10 0.90-1.10 43.5 1.1 Medication Medication Total Dose (Bolus/Oral) Medication Total Dosage/Unit 1% XYLOCAINE 20 mL OXYGEN 21 l/min VERSED 0.5 mg Medications (Bolus/Oral) Medication Time Given Dosage/Unit Administered By Reason OXYGEN 04/06/2018 8:05:15 AM 6 l/min Hans Broderick Patient arrived on 6 l/min OXYGEN given by Hnas Broderick via Nasal. Ordered by Hans Broderick. OXYGEN 04/06/2018 8:10:51 AM 15 l/min Trudy Jeffery 15 l/min OXYGEN given in lab by Trudy Jeffery, RN via Nasal. Ordered by Hans Broderick. 1% XYLOCAINE 04/06/2018 8:33:56 AM 20 mL Hans Broderick Patient arrived on 20 mL 1% XYLOCAINE given by Hans Broderick in Right Groin via Subcutaneous. Ordered by Hans Broderick. VERSED 04/06/2018 8:34:30 AM 0.5 mg Trudy Jeffery 0.5 mg VERSED given in lab by Trudy Jeffery, RN in Left Forearm via Peripheral IV. Ordered by Hans Chavez. Medication (Drip) Medication Time Given Dosage/Unit Concentration/Unit Diluent (ml) Solution IV Solutions 04/06/2018 8:05:01 AM 0 mL (IV) 500 NaCl .9 Patient arrived on IV Solutions given by Hans Broderick in Left Forearm via Peripheral IV. Pump/Drip F low = 20 ml/hr using NaCl .9. Ordered by Hans Broderick. Initial Case Assessment Cardiovascular HR NIBP Chest Pain 102 122/89 0 Edema Present Skin color Skin None Normal Warm Dry Circulatory - Right Pulses Dorsalis Pedis Femoral d 1 Scale (0,1,2,3,4,d) Circulatory - Left Pulses Dorsalis Pedis Femoral d 1 Scale (0,1,2,3,4,d) Neurological State Oriented to time-place- Alert Moves all extremities person Respiration - General Respiration Rate SpO2 (%) O2 (lpm) (B/min) 12 92 6 Final Case Assessment Cardiovascular HR NIBP Chest Pain 100 120/76 0 Edema Present Skin color Skin None Normal Warm Dry Circulatory - Right Pulses Dorsalis Pedis Femoral d 1 Scale (0,1,2,3,4,d) Circulatory - Left Pulses Dorsalis Pedis Femoral d 1 Scale (0,1,2,3,4,d) Neurological State Oriented to time-place- Alert Moves all extremities person Respiration - General Respiration Rate SpO2 (%) O2 (lpm) (B/min) 19 94 15 Chronological Log Time Study Chronological Log 8:02:16 Patient arrived via Bed. 8:02:18 Patient Name, D.O.B, / Armband Verified By R.N. 8:02:18 Consent signed by the physician and the patient and verified by the Manager Solution staff. 8:04:44 Pre-op and post- op instructions given; patient acknowledges understanding of instructions. 8:04:49 Patient has been NPO for More than 6Hrs. 8:04:49 Skin Breakdown- 8:04:53 Patient Warmer Placed on the Table. 8:04:55 Michelle Prominences Protected 8:05:00 A # 18 IV was noted in the Forearm (left). Grade = 0 Patient arrived on IV Solutions given by Hans Broderick in Left Forearm via Peripheral IV. Pump/ Drip Flow = 20 ml/hr 8:05:01 using NaCl .9. Ordered by Hans Broderick. 8:05:02 History and physical on the chart or being dictated. Vitals capture started with the following parameters, Patient=Adult, Interval=5 min, Initial Pr civipe=471 mmHg, 8:05:07 Deflation Rate=5 mmHg, Cuff placed on Left Arm 8:05:15 Patient arrived on 6 l/min OXYGEN given by Hans Broderick via Nasal. Ordered by Mahin Broderick 8:05:59 HEPARIN DISCONTINUED AT 0750 BY SHAWN GLYNN 8:06:29 UZ=996 bpm, HOAQ=480/89 mmhg, SpO2=92 %, Resp=12 B/min, Pain=0, Esperanza=10, Mann=2 Assessment: Initial Case, YH=657 BPM, HHYE=192/89 mmhg, Chest Pain=0, Edema=None, Color=Normal, Skin = Warm, Dry Right Pulses: Mau Ped=d, Femoral=1 8:07:03 Left Pulses: Mau Ped=d, Femoral=1 Neurological: State=Alert, Ox3, HEART Respiration: Resp=12 B/min, SpO2=92 %, O2=6 lpm 8:10:41 II=776 bpm, TASW=765/81 mmhg, SpO2=92 %, Resp=17 B/min, Pain=0, Esperanza=10, Mann=2 8:10:48 Reference ECG taken 8:10:51 15 l/min OXYGEN given in lab by Trudy Jeffery RN via Nasal. Ordered by Hans Broderick. 8:14:54 Bilateral groins prepped with 2% chlorhexidine, and draped after a 3 minute waiting time. 8:15:42 DG=589 bpm, TUVF=416/66 mmhg, SpO2=94.0 %, Resp=19 B/min, Pain=0, Esperanza=10, Mann=2 8:20:43 KW=960 bpm, KBSP=735/74 mmhg, SpO2=94.0 %, Resp=19 B/min, Pain=0, Esperanza=10, Mann=2 8:25:44 VG=184 bpm, SCGP=144/72 mmhg, SpO2=94.0 %, Resp=20 B/min, Pain=0, Esperanza=10, Mann=2 8:26:10 Pressure channel 1 zeroed. 8:28:41 MD arrived. 8:30:41 ND=051 bpm, KEYK=298/85 mmhg, SpO2=95.0 %, Resp=19 B/min, Pain=0, Esperanza=10, Mann=2 Time Out. Correct patient, correct procedure, correct physician, labs, allergies, and equipment verified with laborer pullet farm 8:31:36 team present. Fire risk assesment completed (see hard stop sheet for coding). Time Out Concu rred by MD and individual staff in procedure. 8:33:53 Case Start Patient arrived on 20 mL 1% XYLOCAINE given by Hans Broderick in Right Groin via Subcutaneous. Or dered by Davie 8:33:56 aHns. 8:34:30 0.5 mg VERSED given in lab by Trudy Jeffery, RN in Left Forearm via Peripheral IV. Ordere d by Hans Broderick. 8:35:42 MK=755 bpm, SOWE=605/80 mmhg, SpO2=93.0 %, Resp=14 B/min, Pain=0, Esperanza=10, Mann=2 8:39:05 Access site was Right Femoral Artery. A INTRODUCER SET, MICROPUNCTURE STIFF FR 5 was advanced into the Fem Art (right) using the Modif ied Seldinger 8:39:17 technique. A SHEATH, FR6.5 PRELUDE 11CM FR 6.5 was exchanged in the Fem Art (right). This was necessary in order to achieve 8:40:37 vascular hemostasis. 8:40:45 DR=081 bpm, SPGQ=642/71 mmhg, SpO2=93.0 %, Resp=14 B/min, Pain=0, Esperanza=10, Mann=2 A JL 5.0 INFINITI CATHETER FR 6 was advanced over a wire. OMNIPAQUE, 350 MG, 150ML 150ML was use d for 8:43:33 injections. 8:45:46 UB=951 bpm, GOIF=901/67 mmhg, SpO2=94.0 %, Resp=15 B/min, Pain=0, Esperanza=10, Mann=2 Recorded Pressure: Ao, RO=931, Condition=Condition 1 8:45:55 (Aorta) Ao 126/79/98 8:46:17 The LCA was injected and visualized at various angles. OMNIPAQUE, 350 MG, 150ML 150ML used. After removing the current catheter a 3DRC INFINITI CATHETER FR 5 was advanced over a WIRE, 3MMJ .035 180CM 8:49:01 180CM. 8:50:45 LW=154 bpm, DIXK=415/73 mmhg, SpO2=93.0 %, Resp=19 B/min, Pain=0, Esperanza=10, Mann=2 8:51:53 The RCA was injected and visualized at various angles. OMNIPAQUE, 350 MG, 150ML 150ML used. 8:52:27 Catheter was removed 8:53:00 Activated Clotting Time Drawn 8:54:44 Catheter(s) removed without difficulty 8:54:55 ACT (Normal Range 90-180) = 62 8:54:57 Case End (Physician broke scrub) 8:55:42 IH=417 bpm, YNUU=405/81 mmhg, SpO2=95.0 %, Resp=15 B/min, Pain=0, Esperanza=10, Mann=2 8:56:43 Sheath removed; pressure applied to access site. 9:00:48 SC=772 bpm, WTUV=199/74 mmhg, SpO2=94.0 %, Resp=17 B/min, Pain=0, Esperanza=10, Mann=2 9:05:47 UR=310 bpm, MMOQ=872/81 mmhg, SpO2=94.0 %, Resp=14 B/min, Pain=0, Esperanza=10, Mann=2 9:10:48 MP=284 bpm, DXPC=234/75 mmhg, SpO2=96.0 %, Resp=14 B/min, Pain=0, Esperanza=10, Mann=2 9:15:47 TT=145 bpm, JTGT=502/76 mmhg, SpO2=94.0 %, Resp=19 B/min, Pain=0, Esperanza=10, Mann=2 9:16:59 Sterile dressing applied to site 9:17:01 No case complications noted. 9:17:03 Cine recording checked. 9:17:06 Bedside Report will be given. 9:19:38 Vitals capture stopped. Assessment: Final Case, ZV=025 BPM, SWDL=577/76 mmhg, Chest Pain=0, Edema=None, Color=Normal, Skin = Warm, Dry Right Pulses: Mau Ped=d, Femoral=1 9:19:41 Left Pulses: Mau Ped=d, Femoral=1 Neurological: State=Alert, Ox3, HEART Respiration: Resp=19 B/min, SpO2=94 %, O2=15 lpm 9:25:27 Patient moved to stretcher 9:25:32 A Left Heart Cath was performed. End Study - Contrast Media Used In Study Contrast Total Opened (mL) Total Used (mL) Total Wasted (mL) Omnipaque 350 70 70 0 End Study - Maximum Contrast Load Max Contrast Load (mL) 341.7 End Study - Radiation Exposure Fluoro Time (minutes) 5.2 End Study - Patient Disposition Complications Transferred To Telemetry Bed
[2018-04-06] MEDS: Multivitamin Inj 10 ML, Thiamine Inj 100 MG, Folic Acid Inj 1 MG in Sodium Chlor 0.9% I... IV.SIG SCH (09:39)
[2018-04-06] MEDS: Sod Chloride 0.9% Inj 500 ML IV.CONT SCH ×2 (10:05→14:16)
--- NOTE | 2018-04-06 10:09 | MA ---
cc: Hans Broderick MD DATE: 04/06/2018 PROCEDURE PERFORMED: Coronary angiography, right femoral arterial approach. DESCRIPTION OF PROCEDURE: The patient was brought to the cardiac catheterization lab in a fasting state. Using 1% lidocaine for local anesthesia, a femoral access was obtained of the right common femoral artery; and a 6-Vietnamese sheath placed. Coronary angiography was then completed using a left 5 and a 3DRC catheter. Sheath is to be pulled manually. FINDINGS: CORONARY ANGIOGRAPHY: Coronary circulation is left dominant. The left anterior descending artery has about 20% proximal disease. The remainder of the coronary arteries appear normal. CONCLUSIONS: Minimal nonobstructive coronary artery disease. The patient should be a candidate for transcatheter aortic valve replacement at this point. Hans Broderick MD VEW/rs , 09:48 AM , 09:52 AM
--- NOTE | 2018-04-06 13:33 | P.PNCV ---
- Note Subjective/Hospital Course: 68-year-old male with past medical history significant for DM, HTN, Aortic valve replacement (pericardial tissue valve), 21mm [place] model # 3000TFX 05/22/[address] Coats here at [place]. Brought in by [facility] for sob for a few days, found to have irregular heart rate , alcohol abuse drinks 9 beers daily for many years. Per CCM notes pt was on 4 L oxygen saturation was only in the mid 80s. Because of diffuse wheezing patient received IV Solu-Medrol 125 mg x1 and breathing treatments and subsequently was placed on BiPAP. Chest x-ray showed evidence of congestive heart failure, BNP was 1200. Patient was given a total of 120 mg of IV Lasix in the [place] emergency department. Subsequently was transferred to CVICU at [facility]. Patient also was noted to have severe metabolic acidosis secondary to lactic acidosis 5.8, most likely secondary to poor perfusion. ABG showed pH of 7.37. pCO2 23, PO2 73, bicarb was 13 with a base excess of -11. he ws found to be in in atrial fibrillation with RVR. Rate controlled with p.o. metoprolol and IV metoprolol as needed. ECHO showed : EF 35% mild -mod MR, Bovine prothersis with critical aortic stenosis , mild to mod AI, aortic valve area 0.3 cm2/ AV mean gradient of 86mmhg. 04/06 pt showed signs of alcohol withdrawal over the weekend / place on scheduled Librium and CWA protocol He underwent cardiac cath : which showed nonobstructive disease 20% prox LAD stenosis consult has been placed with TAVR coordinator [facility] Adult Cardiac Surgery Database Version 2.9 RISK SCORES Procedure: Isolated AVR CALCULATE Risk of Mortality: 6.059% Renal Failure: 6.397% Permanent Stroke: 1.293% Prolonged Ventilation: 27.202% DSW Infection: 0.279% Reoperation: 6.090% Morbidity or Mortality: 31.067% Short Length of Stay: 18.046% Long Length of Stay: 18.573% Objective: Vital Signs - 24 hr 04/05/18 15:00 04/05/18 16:00 04/05/18 16:14 Temperature 97.4 F L Pulse Rate 81 Respiratory Rate 17 14 Blood Pressure 102/67 Pulse Oximetry 95 95 04/05/18 17:14 04/05/18 17:28 04/05/18 17:53 Temperature Pulse Rate 81 Respiratory Rate 20 Blood Pressure Pulse Oximetry 94 L 92 L 04/05/18 19:00 04/05/18 21:36 04/05/18 22:06 Temperature 99.0 F Pulse Rate 100 H 106 H Respiratory Rate 18 22 Blood Pressure 110/76 Pulse Oximetry 95 94 L 93 L 04/05/18 23:00 04/06/18 03:00 04/06/18 04:10 Temperature 98.9 F 98.9 F Pulse Rate 87 78 113 H Respiratory Rate 16 17 20 Blood Pressure 111/66 101/65 Pulse Oximetry 94 L 94 L 04/06/18 07:16 04/06/18 07:18 04/06/18 09:40 Temperature 97.7 F Pulse Rate 103 H 97 H 94 H Respiratory Rate 18 18 Blood Pressure 115/70 Pulse Oximetry 91 L 04/06/18 09:58 04/06/18 10:10 04/06/18 10:28 Temperature 97.7 F Pulse Rate 99 H 103 H Respiratory Rate 18 Blood Pressure 114/76 Pulse Oximetry 91 L 91 L 04/06/18 10:29 Temperature 97.8 F Pulse Rate 103 H Respiratory Rate 19 Blood Pressure 108/72 Pulse Oximetry 91 L Labs: Laboratory Results - last 12 hr 04/06/18 04/06/18 04/06/18 02:48 04:17 04:17 WBC 14.9 H RBC 3.58 L Hgb 11.9 L Hct 34.4 L MCV 96.1 MCH 33.2 MCHC 34.5 RDW 15.2 Plt Count 170 MPV 8.2 Neut % (Auto) 91.8 H Lymph % (Auto) 3.9 L [place] % (Auto) 4.2 Eos % (Auto) 0.0 Baso % (Auto) 0.1 Neut # (Auto) 13.7 H Lymph # (Auto) 0.6 L [place] # (Auto) 0.6 Eos # (Auto) 0.0 Baso # (Auto) 0.0 WBC Differential . Differential Comment Auto diff final APTT Sodium 140 Potassium 4.4 Chloride 106 Carbon Dioxide 27.4 Anion Gap 7 BUN 23 H Creatinine 1.20 Estimated GFR 61 L POC Glucose 167 H Random Glucose 157 H Calcium 8.1 L Magnesium 1.9 Total Bilirubin 0.6 AST 63 H ALT 34 Alkaline Phosphatase 59 Total Protein 6.1 L Albumin 2.9 L 04/06/18 04/06/18 04:17 11:28 WBC RBC Hgb Hct MCV MCH MCHC RDW Plt Count MPV Neut % (Auto) Lymph % (Auto) [place] % (Auto) Eos % (Auto) Baso % (Auto) Neut # (Auto) Lymph # (Auto) [place] # (Auto) Eos # (Auto) Baso # (Auto) WBC Differential Differential Comment APTT 43.5 H Sodium Potassium Chloride Carbon Dioxide Anion Gap BUN Creatinine Estimated GFR POC Glucose 183 H Random Glucose Calcium Magnesium Total Bilirubin AST ALT Alkaline Phosphatase Total Protein Albumin Result Diagrams: 04/07/18 03:55 04/07/18 03:55 - Plan (1) Prosthetic cardiac valve calcification (2) Aortic stenosis (5) CHF exacerbation (6) Alcohol dependence (7) Type 2 diabetes mellitus (1) Prosthetic cardiac valve calcification Qualifiers: Encounter type: initial encounter Qualified Code(s): T82.897A - Other specified complication of cardiac prosthetic devices, implants and grafts, initial encounter (2) Aortic stenosis Qualifiers: Cardiac valve disease etiology: nonrheumatic Qualified Code(s): I35.0 - Nonrheumatic aortic (valve) stenosis (5) CHF exacerbation Qualifiers: Heart failure type: combined systolic and diastolic Qualified Code(s): I50.43 - Acute on chronic combined systolic (congestive) and diastolic ( congestive) heart failure (6) Alcohol dependence Qualifiers: Substance use status: unspecified alcohol-induced disorder Qualified Code(s) : F10.29 - Alcohol dependence with unspecified alcohol-induced disorder (7) Type 2 diabetes mellitus Qualifiers: Diabetes mellitus complication status: with hyperglycemia
[2018-04-06] MEDS: Insulin Detemir Inj 1,000 UNIT/10 ML Vial SQ SCH (21:07)
[2018-04-06] MEDS: LORazepam 0.5 MG Tablet PO PRN (21:07)
[2018-04-07] MEDS: Metoprolol Tartrate 50 MG Tablet PO SCH ×3 (01:33→17:27)
[2018-04-07] MEDS: Sod Chloride 0.9% Inj 500 ML IV.CONT SCH ×6 (02:07→21:01)
[2018-04-07] MEDS: Chlorhexidine Gluconate 2% 1 Pack (2 Cloths) TOPICAL SCH (04:46)
[2018-04-07] MEDS: Insulin NovoLIN Regular Correctional Sugar Inj SQ SCH ×5 (04:47→21:03)
[2018-04-07 05:51] LABS: Baso % (Auto) 0.1 % (0.0-2.0); Hematocrit 35.7 % (39.0-51.0); Hemoglobin 12.3 gm/dL (13.0-17.0); Lymph # (Auto) 0.5 th/mm3 (1.0-4.8); Lymph % (Auto) 3.4 % (9.0-44.0); Mean Corpuscular HGB Conc 34.4 % (32.0-36.0); Mean Corpuscular Hemoglobin 33.3 pg (27.0-34.0); Mean Corpuscular Volume 96.8 fL (80.0-100.0); Mean Platelet Volume 8.8 fL (7.0-11.0); Mono # (Auto) 0.5 th/mm3 (0.0-0.9); Mono % (Auto) 3.1 % (0.0-8.0); Neut % (Auto) 93.4 % (16.0-70.0); Platelet Count 178 th/mm3 (150-450); Red Blood Count 3.69 mil/mm3 (4.50-5.90); Red Cell Distribution Width 14.9 % (11.6-17.2)
[2018-04-07 06:16] LABS: Calcium 8.3 mg/dL (8.5-10.1); Carbon Dioxide 23.9 meq/L (21.0-32.0); Potassium 4.8 meq/L (3.5-5.1)
--- NOTE | 2018-04-07 06:29 | MB ---
cc: Abby Mathews MD DATE: 04/06/2018 HISTORY OF PRESENT ILLNESS: This is a 68-year-old patient that was admitted on 04/04/2008. He was brought in by the [facility] for shortness of breath, was also found to be hypoxic with severe metabolic acidosis secondary to lactic acidosis with a lactic acid level of 5.8, pCO2 was 23, base excess was -11 with a bicarbonate level of 13. He was admitted to the ICU, placed on BiPAP and also treated for acute CHF exacerbation. It was found that he had a significant prominent systolic murmur in the aortic area and has had prior history of aortic valve replacement in 2007. He underwent an echocardiogram, which showed an ejection fraction of 35%, mild to moderate mitral valve regurgitation, bovine prosthesis with critical aortic stenosis, mild to moderate aortic valve regurgitation. Aortic valve mean gradient of 86 mmHg. We were immediately consulted to evaluate for redo aortic valve replacement. The patient also underwent cardiac catheterization today and was found to have nonobstructive coronary disease with a 20% stenosis in the proximal LAD. PAST MEDICAL HISTORY: ETOH abuse. He drinks approximately 8-9 beers per day and has done so for many years. History of diabetes mellitus on oral therapy, hypertension, hyperlipidemia. The patient is also somewhat of a poor historian. Per the patient, he did have paroxysmal nocturnal dyspnea. Positive for orthopnea and also history of COPD. PAST SURGICAL HISTORY: Includes aortic valve replacement 05/22/[address] Coats where the patient had a 21 mm pericardial tissue [place] model 3000 TFX. Patient has also had kidney stones and has had a stent placed for nephrolithiasis. He has also had dental extraction prior to his aortic valve replacement in 2007. He has also had left eye surgery. ALLERGIES: PATIENT HAS NO KNOWN ALLERGIES. HOME MEDICATIONS: 1. Glipizide 5 p.o. daily. 2. Losartan 25 p.o. daily. 3. Metformin 500 b.i.d. 4. Nifedipine 60 p.o. daily. 5. Aspirin 325 daily. 6. Metoprolol 50 mg p.o. b.i.d. 7. Simvastatin 40 p.o. at bedtime. FAMILY HISTORY: As above in initial H and P. SOCIAL HISTORY: The patient lives alone. He is , has 1 son that he is somewhat estranged that lives in [place]. REVIEW OF SYSTEMS: GENERAL: No night sweats, fever, heat and cold intolerance. SKIN: No psoriasis, itching or hives. HEENT: No blurred vision, hearing loss. RESPIRATORY: Positive for shortness of breath. No cough. CARDIOVASCULAR: No chest pain. No paroxysmal nocturnal dyspnea. GASTROINTESTINAL: No diarrhea or vomiting. GENITOURINARY: No burning, frequency, urgency. CENTRAL NERVOUS SYSTEM: No history of TIA, CVA or seizure disorder. ENDOCRINOLOGY: Positive for diabetes. PHYSICAL EXAMINATION: VITAL SIGNS: Blood pressure 108/70, heart rate of 100, afebrile. O2 saturation on a simple mask 6 liters is 91%. GENERAL: The patient is awake, alert, mildly tachypneic on a simple face mask. HEENT: Head is normocephalic, atraumatic. Pupils equal and reactive. Oral mucosa pink, moist. NECK: Supple. Positive for some mild JVD. HEART: Heart sounds S1, S2 with a harsh 3/6 aortic stenosis. He has a well-healed sternal incision. ABDOMEN: Soft, nontender. No masses or organomegaly. EXTREMITIES: Reveal +1 edema. He has some diminished pulses in the lower feet, but however, are still palpable +1. LABORATORY DATA: Includes hemoglobin 11.9, hematocrit of 34, white cell count of 14, platelet count of 170. INR 1.1. Blood gas as above in the HPI. Sodium 140, potassium 4.4, BUN of 23, creatinine 1.20. Initial BNP of 1200. AST 63, ALT 34. Magnesium level 1.9. Glucose ranging 180-235. MRSA screen undetected. Influenza A negative. RADIOLOGICAL EXAMS: Thoracic aorta abdomen 3-view no evidence of thoracic or abdominal aortic aneurysm or dissection, moderate to severe arteriosclerotic disease, mild CHF, atrophic right kidney. Chest x-ray shows bilateral airspace disease with some small effusions. IMPRESSION: This is a 68-year-old male known with prior pericardial tissue valve in 2007, now with significant critical aortic stenosis, mild to moderate aortic insufficiency, aortic valve mean gradient of 86 mmHg, aortic valve area of 0.3. Also, [id number] mitral valve regurgitation, ejection fraction of 35%. STS risk score 6.059%, which deems him a candidate to be evaluated for transcatheter aortic valve replacement. He has multiple comorbidities including his persistent ETOH abuse, which is being treated with CIWA protocol and Librium. The patient presented again with congestive heart failure exacerbation, pulmonary edema, metabolic acidosis, which has resolved. Consult will be placed with TAVR coordinator for evaluation of timing. At this time, the patient needs to recover from his respiratory failure. Dictated by Irene Fraire APRN. The patient was examined and the chart and pertinent studies reviewed on 2017. Agree with above. The clinical and ECHO findings were discussed in detail with the patient and family. Therapeutic options available including TAVR versus SAVR was discussed. I agree that he will maximally benefit from TAVR given his frailty, previous AVR and significant medical comorbidities. The risks, complications including but not limited to bleeding, infection, stroke, myocardial injury and , and benefits of the procedure were discussed in details and all questions answered. The patient understands the provided information and agrees to proceed with the planned operation. Proceed with TAVR. Thank you allowing me to participate in the care of this patient. MD FABIEN Coats/edie , 01:45 PM , 01:58 PM ROSA
[2018-04-07] MEDS: Aspirin 325 MG Tablet PO SCH (08:09)
[2018-04-07] MEDS: MethylPREDNISolone Sod Succinate Inj 40 MG/ML Vial IV.PUSH SCH ×2 (08:10→21:01)
[2018-04-07] MEDS: Senna/Docusate Sodium 8.6/50 MG Tablet PO SCH ×2 (08:10→21:04)
[2018-04-07] MEDS: Polyethylene Glycol 3350 17 GM Packet PO SCH ×2 (08:11→21:02)
--- NOTE | 2018-04-07 10:12 | P.PNCA ---
Subjective Interval history: No new complaints Medications and Allergies Active Medications: Active Medications Albuterol (Duoneb Neb (Prn)) 1 ampul NEB Q2HR NEB PRN PRN Reason: WHEEZING Albuterol (Duoneb Neb (Shirley)) 1 ampul NEB Q6HR NEB [facility] Last Admin: 04/07/18 09:56 Dose: 1 ampul Aspirin (Aspirin) 162.5 mg PO DAILY [facility] Last Admin: 04/07/18 08:09 Dose: 162.5 mg Bisacodyl (Dulcolax Supp) 10 mg RECTAL DAILY PRN PRN Reason: if no BM in last 24h Chlordiazepoxide (Librium) 10 mg PO Q8H [facility] Last Admin: 04/07/18 08:10 Dose: 10 mg Chlorhexidine Gluconate (Chlorhexidine 2% Cloth) 3 pack TOPICAL DAILY@0400 [facility] Stop: 04/09/18 03:59 Last Admin: 04/07/18 04:46 Dose: 3 pack Chlorhexidine Gluconate (Chlorhexidine 2% Cloth) 3 pack TOPICAL DAILY@0400 PRN PRN Reason: Extra cloth needed Stop: 04/09/18 03:59 Dextrose (D50w Vial) 50 ml IV.PUSH UNSCH PRN PRN Reason: PER HYPOGLYCEMIA PROTOCOL Furosemide (Lasix Inj) 40 mg IV.PUSH BID@0900,1800 [facility] Last Admin: 04/07/18 08:13 Dose: 40 mg Glucagon (Glucagon Inj) 1 mg OTHER PRN PRN PRN Reason: for Hypoglycemia Protocol Magnesium Sulfate 4 gm/ Sodium (Chloride) 100 mls @ 50 mls/hr IV.SIG UNSCH PRN PRN Reason: For Magnesium 0.9 - 1.1 mg/dL Magnesium Sulfate 2 gm/ Sodium (Chloride) 100 mls @ 50 mls/hr IV.SIG UNSCH PRN PRN Reason: For Magnesium 1.2 - 1.6 mg/dL Potassium Chloride (Kcl 40 Meq Premix Inj) 40 meq in 100 mls @ 25 mls/hr IV.SIG Q2H PRN PRN Reason: For Potassium 2.8 - 3.2 mEq/L Potassium Chloride (Kcl 20 Meq Premix Inj) 20 meq in 100 mls @ 50 mls/hr IV.SIG Q2H PRN PRN Reason: For Potassium 3.3 - 3.5 mEq/L Potassium Chloride (Kcl 40 Meq Premix Inj) 40 meq in 100 mls @ 25 mls/hr IV.SIG UNSCH PRN PRN Reason: For Potassium 3.3 - 3.5 mEq/L Potassium Chloride (Kcl 20 Meq Premix Inj) 20 meq in 100 mls @ 50 mls/hr IV.SIG Q2H PRN PRN Reason: For Potassium 2.8 - 3.2 mEq/L Sodium Phosphate 30 mmol/ (Sodium Chloride) 260 mls @ 42 mls/hr IV.SIG UNSCH PRN PRN Reason: For Phosphorus < 2.5 mg/dL Potassium Phosphate 30 mmol/ (Sodium Chloride) 260 mls @ 42 mls/hr IV.SIG UNSCH PRN PRN Reason: SEE LABEL COMMENTS Sodium Chloride (Ns Inj) 500 mls @ 100 mls/hr IV.CONT .Q5H [facility] Last Admin: 04/07/18 08:10 Dose: Not Given Insulin Aspart (Novolog Inj) 5 units SQ TIDAC [facility] Last Admin: 04/07/18 08:09 Dose: 5 units Insulin Detemir (Levemir Inj) 10 unit SQ HS [facility] Last Admin: 04/06/18 21:07 Dose: 10 unit Insulin Human Regular (Novolin R Correctional Sugar Inj) 0 units SQ ACHS AND 3AM SHIRLEY; Protocol Last Admin: 04/07/18 08:09 Dose: 4 units Lactulose (Lactulose Liq) 30 ml PO BID [facility] Last Admin: 04/07/18 08:12 Dose: Not Given Lorazepam (Ativan Inj) 1 mg IV.PUSH Q4H PRN PRN Reason: agitation,withdrawal Lorazepam (Ativan) 0.5 mg PO Q6H PRN PRN Reason: anxiety/withdrawal Last Admin: 04/06/18 21:07 Dose: 0.5 mg Magnesium Oxide (Mag-Ox) 800 mg PO UNSCH PRN PRN Reason: For Magnesium 1.2 - 1.6 mg/dL Methylprednisolone Sodium Succinate (Solumedrol Inj) 40 mg IV.PUSH Q12H [facility] Last Admin: 04/07/18 08:10 Dose: 40 mg Metoprolol Tartrate (Lopressor Inj) 2.5 mg IV.PUSH Q6H PRN PRN Reason: HR>100 Metoprolol Tartrate (Lopressor) 50 mg PO Q8H [facility] Last Admin: 04/07/18 08:09 Dose: 50 mg Ondansetron HCl (Zofran Inj) 4 mg IV.PUSH Q6H PRN PRN Reason: NAUSEA OR VOMITING Polyethylene Glycol (Miralax) 17 gm PO BID [facility] Last Admin: 04/07/18 08:11 Dose: 17 gm Potassium Bicarb/Potassium Chloride (K-Lyte Cl Eff) 50 meq PO UNSCH PRN PRN Reason: For Potassium 3.3 - 3.5 mEq/L Potassium Chloride (K-Dur) 20 meq PO BID [facility] Last Admin: 04/07/18 08:10 Dose: 20 meq Potassium Phosphate (K-Phos Original) 2,000 mg PO Q4H PRN PRN Reason: Phosphorus Less Than 2.5 mg/dL Potassium Phosphate (K-Phos Original) 2,000 mg PO UNSCH PRN PRN Reason: SEE LABEL COMMENTS Pravastatin Sodium (Pravachol) 80 mg PO HS [facility] Last Admin: 04/06/18 21:07 Dose: 80 mg Senna/Docusate Sodium (Lisa-Colace) 1 tab PO BID [facility] Last Admin: 04/07/18 08:10 Dose: 1 tab Sodium Chloride (Ns Flush) 2 ml IV.FLUSH BID [facility] Last Admin: 04/07/18 08:12 Dose: 2 ml Sodium Chloride (Ns Flush) 2 ml IV.FLUSH PRN PRN PRN Reason: FLUSH AFTER USING IV ACCESS Allergies Allergy/AdvReac Type Severity Reaction Status Date / Time No Known Allergies Allergy Verified 04/04/18 02:42 Home Medications Medication Instructions Recorded Confirmed Type aspirin 162 mg PO DAILY 04/04/18 04/04/18 History glipizide 5 mg PO DAILY 04/04/18 04/04/18 History losartan 25 mg PO DAILY 04/04/18 04/04/18 History metformin 500 mg PO BID 04/04/18 04/04/18 History metoprolol tartrate 50 mg PO BID 04/04/18 04/04/18 History nifedipine 60 mg PO DAILY 04/04/18 04/04/18 History simvastatin 40 mg PO QPM 04/04/18 04/04/18 History Physical Exam Vital signs: Vital Signs 04/06/18 10:28 04/06/18 10:29 04/06/18 15:18 Temperature 97.8 F Pulse Rate 103 H 103 H 99 H Respiratory Rate 19 Blood Pressure 108/72 Pulse Oximetry 91 L 04/06/18 15:19 04/06/18 16:18 04/06/18 19:00 Temperature 97.4 F L 97.9 F Pulse Rate 99 H 91 H 95 H Respiratory Rate 21 18 22 Blood Pressure 96/64 L 130/82 Pulse Oximetry 90 L 96 04/06/18 21:29 04/06/18 23:00 04/07/18 03:00 Temperature 98.2 F 98.4 F Pulse Rate 98 H 100 H 100 H Respiratory Rate 18 20 26 H Blood Pressure 106/66 104/76 Pulse Oximetry 92 L 96 97 04/07/18 03:44 04/07/18 07:00 04/07/18 09:55 Temperature 98 F Pulse Rate 100 H 117 H Respiratory Rate 16 18 Blood Pressure 101/71 Pulse Oximetry 97 99 04/07/18 09:58 Temperature Pulse Rate 93 H Respiratory Rate 16 Blood Pressure Pulse Oximetry Intake & Output 04/06/18 04/07/18 04/07/18 18:59 06:59 18:59 Intake Total 1011.2 / 1011.2 Output Total 1040 / 1040 850 / 850 Balance -28.8 / -28.8 -850 / -850 Weight 82.5 kg Intake: IV 511.2 / 511.2 Heparin/D5W 25,000 U/250 mL 25, 0 / 0 000 unit In 250 ml @ 1,000 UNITS/HR 10 mls/hr IV.CONT TITRATE PRN Rx#:[id number] MVI-12 Inj 10 ML Thiamine Inj 511.2 / 511.2 100 MG Folvite Inj 1 MG In NS Inj 500 ML @ 125 mls/hr IV.SIG Q24H SHIRLEY Rx#:[id number] Oral 500 / 500 Output: Urine Amount (Catheter) 1040 / 1040 850 / 850 Indwelling Temp Sensing 1040 / 1040 850 / 850 Catheter Other: Date of Last Bowel Movement 04/06/18 04/06/18 # Bowel Movements 0 Narrative: GENERAL: 68-year-old male who appears older than stated age, moderate distress on BiPAP SKIN: warm/dry. HEAD: Atraumatic. Normocephalic. EYES: Pupils equal and round. No scleral icterus. ENT: No nasal bleeding or discharge. NECK: Trachea midline. Elevated JVD CARDIOVASCULAR: S1S2 RRR. Prominent grade 2 severe murmur RUSB RESPIRATORY: Much less use of accesory muscles today. Bibasilar crackles. GASTROINTESTINAL: Abdomen soft, non-tender, nondistended. Hepatic and splenic margins not palpable. MUSCULOSKELETAL: No obvious deformities. No clubbing. No cyanosis. Trace ankle edema. NEUROLOGICAL: Awake and alert. No obvious cranial nerve deficits. Motor grossly within normal limits. Normal speech. - Urinary Catheter Management Indwelling Temp Sensing Catheter Cath placed during this visit: yes Reason for continuing: Hourly intake/output Insertion date: 04/04/18 Insertion time: 19:45 Results 04/07/18 03:55 04/07/18 03:55 Cardiac Enzymes 04/06/18 Range/Units 04:17 AST 63 H (15-37) U/L Coagulation 04/06/18 04/07/18 Range/Units 04:17 03:55 APTT 43.5 H 23.0 L D (23.4-31.7) sec CBC 04/06/18 04/07/18 Range/Units 04:17 03:55 WBC 14.9 H 15.0 H (4.0-11.0) th/mm3 RBC 3.58 L 3.69 L (4.50-5.90) mil/mm3 Hgb 11.9 L 12.3 L (13.0-17.0) gm/dL Hct 34.4 L 35.7 L (39.0-51.0) % Plt Count 170 178 (150-450) th/mm3 Neut # (Auto) 13.7 H 14.0 H (1.8-7.7) th/mm3 Lymph # (Auto) 0.6 L 0.5 L (1.0-4.8) th/mm3 Sampson # (Auto) 0.6 0.5 (0.0-0.9) th/mm3 Eos # (Auto) 0.0 0.0 (0.0-0.4) th/mm3 Baso # (Auto) 0.0 0.0 (0.0-0.2) th/mm3 Comprehensive Metabolic Panel 04/06/18 04/07/18 Range/Units 04:17 03:55 Sodium 140 138 (136-145) meq/L Potassium 4.4 4.8 (3.5-5.1) meq/L Chloride 106 105 (98-107) meq/L Carbon Dioxide 27.4 23.9 (21.0-32.0) meq/L BUN 23 H 26 H (7-18) mg/dL Creatinine 1.20 1.34 H (0.60-1.30) mg/dL Calcium 8.1 L 8.3 L (8.5-10.1) mg/dL AST 63 H (15-37) U/L ALT 34 (12-78) U/L Alkaline Phosphatase 59 (45-117) U/L Total Protein 6.1 L (6.4-8.2) g/dL Albumin 2.9 L (3.4-5.0) g/dL Intake and Output 04/06/18 04/07/18 04/07/18 22:59 06:59 14:59 Intake Total 500 / 500 Output Total 1040 / 1040 850 / 850 Balance -540 / -540 -850 / -850 Intake: Oral 500 / 500 Output: Urine Amount (Catheter) 1040 / 1040 850 / 850 Indwelling Temp Sensing 1040 / 1040 850 / 850 Catheter Other: Date of Last Bowel Movement 04/06/18 04/06/18 04/06/18 # Bowel Movements 0 Weight 82.5 kg - Imaging and Cardiology Imaging: Impressions Chest X-Ray 04/06/18 06:00 CONCLUSION: Bilateral mostly basilar airspace disease with small effusions similar to April 05. Assessment and Plan - Assessment (1) Stenosis of prosthetic aortic valve Code(s): I35.0 - Nonrheumatic aortic (valve) stenosis Status: Acute (2) CHF (congestive heart failure) Code(s): I50.9 - Heart failure, unspecified Status: Acute (3) Alcohol abuse Code(s): F10.10 - Alcohol abuse, uncomplicated Status: Acute (4) COPD exacerbation Code(s): J44.1 - Chronic obstructive pulmonary disease with (acute) exacerbation Status: Acute - Plan Plan cardiac cath, poss PCI once he can tolerate being supine. Hopefully can have TAVR instead of open redo. NPO after MN for possible cath. 04/07/2018 Coronaries OK. Recommend TAVR this admit. Dr. White to see
--- NOTE | 2018-04-07 14:00 | P.FRAIL ---
Frailty Index Date: April 07, 2018 Height: 175.26 cm Weight: 82.5 kg BMI: 27.8 Days in Hospital at Exam: 3 - Albumin Normal Albumin range: 3.5-5.0 g/dL Albumin 2.9 g/dL (3.4-5.0) L 04/06/18 04:17 Pass/Fail: Fail - Kelly Activities of Daily Living Bathing (bathes self/help in single area): Hannibal Dressing (gets/puts clothes on self): Hannibal Toileting (goes without help): Hannibal Transferring (unassisted or mechanical aides): Hannibal Continence (complete self-control): Hannibal Feeding (self, prep by another allowed): Hannibal Kelly Total ADL Score: 6 Pass/Fail: Pass - Voice Intercept Technician Strength 3 BMI Cutoff for Voice Intercept Technician Strength (Kg) <= 24 <= 29 24.1 - 28 <= 30 > 28 <= 32 Voice Intercept Technician Strength - Grasp 1: 20 Voice Intercept Technician Strength - Grasp 2: 23 Voice Intercept Technician Strength - Grasp 3: 22 Voice Intercept Technician Strength - Average: 22.3 Pass/Fail: Fail - 15-Foot Walk 3 Height 15-Foot Walk Cutoff Time <= 173 cm >= 7 seconds > 173 cm >= 6 seconds 15-Foot Walk (seconds): 10 Pass/Fail: Fail - Total Frailty Total Frailty (out of 4): 3
[2018-04-07] MEDS: Aluminum/Magnesium/Simethacone Susp 30 ML UDC PO PRN (18:02)
[2018-04-07] MEDS: Insulin Detemir Inj 1,000 UNIT/10 ML Vial SQ SCH (21:02)
--- NOTE | 2018-04-07 21:26 | P.PNCC ---
Subjective Subjective Remarks/Hospital Course: Patient is a 68-year-old male with past medical history significant for DM, HTN, aortic valve replacement 2007 (pericardial tissue valve), irregular heart rate, alcohol abuse/dependence who was brought in by [facility] for sob for a few days. Quit smoking about 10 years ago. Continues to drink heavily approximately 9 beers daily. 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 In the ER initially on nasal cannula at 4 L oxygen saturation was only in the mid 80s. Because of diffuse wheezing patient received IV Solu-Medrol 125 mg x1 and breathing treatments and subsequently was placed on BiPAP. Chest x-ray showed evidence of congestive heart failure, BNP was 1200. Patient was given a total of 120 mg of IV Lasix in the [facility] emergency department. Subsequently was transferred to CVICU at [facility] where I evaluated him. Patient also was noted to have severe metabolic acidosis secondary to lactic acidosis 5.8. This appears most likely secondary to poor perfusion. ABG showed pH of 7.37. pCO2 23, PO2 73, bicarb was 13 with a base excess of -11. I evaluated the patient in the ICU. He is on BiPAP in moderate distress. His clinical exam is consistent with CHF exacerbation. 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 And a stat echo had been ordered. Continue IV Lasix for diuresis along with breathing treatments. I am unable to do inotropic support at this time as severe aortic stenosis is not ruled out, also patient is in atrial fibrillation with RVR. Rate controlled with p.o. metoprolol and IV metoprolol as needed. Cardiology also had been consulted SUBJ 04/05: Patient remains in ICU, critical. Some worsening of shortness of breath overnight requiring BiPAP also required 50% oxygen to maintain sats about 90%. Chest x-ray stable pulmonary edema with small bilateral effusions. Currently on IV Lasix 40 mg every 12, will give additional 40 mg now. Showing signs and symptoms of alcohol withdrawal currently on scheduled low-dose Librium and as needed IV and p.o. Ativan. 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 Not requiring BiPAP at this time. Chest x-ray unchanged with mild pulmonary edema mild bilateral effusion however clinically improved. Urine output more than 3 L in 24 hours. Therapeutic on heparin. Will increase metoprolol after cardiac cath today. Discussed with Dr. Broderick 04/07: continues to improve. on simple facemask. continued adequate diuresis. denies complaints. Objective Vital Signs / I&O: Vital Signs 04/06/18 21:29 04/06/18 23:00 04/07/18 03:00 Temperature 36.8 C 36.9 C Pulse Rate 98 H 100 H 100 H Respiratory Rate 18 20 26 H Blood Pressure 106/66 104/76 Pulse Oximetry 92 L 96 97 04/07/18 03:44 04/07/18 07:00 04/07/18 09:55 Temperature 36.6 C Pulse Rate 100 H 117 H Respiratory Rate 16 18 Blood Pressure 101/71 Pulse Oximetry 97 99 04/07/18 09:58 04/07/18 11:00 04/07/18 15:00 Temperature 36.6 C 36.8 C Pulse Rate 93 H 76 108 H Respiratory Rate 16 17 18 Blood Pressure 107/68 104/67 Pulse Oximetry 99 98 04/07/18 16:25 04/07/18 20:55 Temperature Pulse Rate 98 H 80 Respiratory Rate 17 18 Blood Pressure Pulse Oximetry 97 Intake & Output 04/07/18 04/07/18 04/08/18 06:59 18:59 06:59 Intake Total 480 / 480 Output Total 850 / 850 1125 / 1125 Balance -850 / -850 -645 / -645 Weight 82.5 kg Intake: Oral 480 / 480 Output: Urine Amount (Catheter) 850 / 850 1125 / 1125 Indwelling Temp Sensing 850 / 850 1125 / 1125 Catheter Other: Date of Last Bowel Movement 04/06/18 04/06/18 Result Diagrams: 04/07/18 03:55 04/07/18 03:55 Objective Remarks: GENERAL: 68-year-old male who appears older than stated age, no acute distress. SKIN: warm/dry. HEAD: Atraumatic. Normocephalic. EYES: Pupils equal and round. No scleral icterus. ENT: No nasal bleeding or discharge. NECK: Trachea midline. Elevated JVD CARDIOVASCULAR: Irregular, A. fib on monitor. Prominent grade 3 systolic murmur heard in the aortic area RESPIRATORY: unlabored. simple face mask. equal chest rise. comfortable pattern. able to speak in full sentences. GASTROINTESTINAL: Abdomen soft, non-tender, nondistended. Hepatic and splenic margins not palpable. MUSCULOSKELETAL: No obvious deformities. No clubbing. No cyanosis. 1+ Bilateral lower extremity edema. NEUROLOGICAL: Awake and alert. Oriented now. No obvious cranial nerve deficits. Motor grossly within normal limits. Normal speech. Tremulous Assessment and Plan - Problem List (1) Acute hypoxemic respiratory failure Code(s): J96.01 - Acute respiratory failure with hypoxia Status: Acute (2) CHF exacerbation Code(s): I50.9 - Heart failure, unspecified Status: Acute (3) Atrial fibrillation with RVR Code(s): I48.91 - Unspecified atrial fibrillation Status: Acute (4) Acidosis, lactic Code(s): E87.2 - Acidosis Status: Acute (5) COPD exacerbation Code(s): J44.1 - Chronic obstructive pulmonary disease with (acute) exacerbation Status: Acute (6) Alcohol dependence Code(s): F10.20 - Alcohol dependence, uncomplicated Status: Chronic (7) Type 2 diabetes mellitus Code(s): E11.9 - Type 2 diabetes mellitus without complications Status: Chronic (8) Hypertension Code(s): I10 - Essential (primary) hypertension Status: Chronic (9) S/P AVR (aortic valve replacement) Code(s): Z95.2 - Presence of prosthetic heart valve Status: Chronic - Assessment and Plan Plan: NEURO: Alcohol withdrawal syndrome Alcohol dependence -Currently on scheduled Librium and Ativan as needed for alcohol withdrawal -Strongly advised to quit drinking -Supplement multivitamin thiamine -Patient drinks about 9 beers daily - improving symptoms. RESP: Acute hypoxemic respiratory failure Pulmonary edema Probable COPD with exacerbation -Continue PRN BiPAP 12/. Wean FiO2 to keep saturation more than 90%, currently on 50% FM -DuoNeb every 6 hours scheduled and as needed -start steroid taper today. 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 Prostatic tissue aortic valve with critical aortic stenosis. [id number] AR. AV mean gradient is 86 mmHg. -The estimated pulmonary arterial pressure is 60.1 mmHg. [id number] MR. -TAVR vs open AVR decision based on cardiac cath findings -Continue Lasix 40 mg every 12 -Continue home aspirin and metoprolol, A. fib rate controlled with beta- blockers. -Increase metoprolol to 75 mg every 8 hours for better rate control -IV heparin per [place] protocol -Metoprolol 2.5 mg IV every 6 hours as needed for heart rate more than 100 -Lactic acidosis has cleared GI: -IV famotidine. Cardiac diet : -Monitor renal function closely. d/c garcia. -IV Lasix as above ID: -Monitor closely for evidence of infection -No antibiotics at this time -Leukocytosis secondary to steroids HEME: -Monitor CBC, coags ENDO: Type 2 diabetes Hyperglycemia poorly controlled -Electrolyte replacement per protocol -Sliding scale insulin, with AC and at bedtime pre-meal insulin and also started on Levemir 10 units nightly PROPH: -Bilateral lower extremity SCDs. IV heparin/famotidine LINES: -Utilize peripheral IVs, central line if needed clinically improving. can transition to step-down unit. consult [facility] to assume care 04/08. (2) CHF exacerbation Qualifiers: Heart failure type: combined systolic and diastolic Qualified Code(s): I50.43 - Acute on chronic combined systolic (congestive) and diastolic ( congestive) heart failure (6) Alcohol dependence Qualifiers: Substance use status: unspecified alcohol-induced disorder Qualified Code(s) : F10.29 - Alcohol dependence with unspecified alcohol-induced disorder (7) Type 2 diabetes mellitus Qualifiers: Diabetes mellitus complication status: with hyperglycemia
[2018-04-08] MEDS: Metoprolol Tartrate 50 MG Tablet PO SCH ×3 (00:35→17:02)
[2018-04-08] MEDS: Insulin NovoLIN Regular Correctional Sugar Inj SQ SCH ×5 (05:00→22:50)
[2018-04-08 05:06] LABS: Hematocrit 34.4 % (39.0-51.0); Lymph # (Auto) 0.5 th/mm3 (1.0-4.8); Lymph % (Auto) 5.2 % (9.0-44.0); Mean Corpuscular HGB Conc 34.9 % (32.0-36.0); Mean Corpuscular Hemoglobin 33.9 pg (27.0-34.0); Mean Platelet Volume 8.6 fL (7.0-11.0); Mono # (Auto) 0.4 th/mm3 (0.0-0.9); Neut # (Auto) 9.4 th/mm3 (1.8-7.7); Neut % (Auto) 90.8 % (16.0-70.0); Platelet Count 157 th/mm3 (150-450); Red Blood Count 3.54 mil/mm3 (4.50-5.90); Red Cell Distribution Width 14.7 % (11.6-17.2); White Blood Count 10.3 th/mm3 (4.0-11.0)
[2018-04-08 05:30] LABS: Calcium 8.5 mg/dL (8.5-10.1); Carbon Dioxide 27.3 meq/L (21.0-32.0); Magnesium 2.2 mg/dL (1.5-2.5); Phosphorus 3.9 mg/dL (2.5-4.9); Potassium 4.9 meq/L (3.5-5.1)
[2018-04-08] MEDS: Aspirin 325 MG Tablet PO SCH (08:32)
[2018-04-08] MEDS: Senna/Docusate Sodium 8.6/50 MG Tablet PO SCH ×2 (08:32→22:45)
[2018-04-08] MEDS: Aluminum/Magnesium/Simethacone Susp 30 ML UDC PO PRN ×3 (08:33→17:02)
[2018-04-08] MEDS: Polyethylene Glycol 3350 17 GM Packet PO SCH ×2 (08:33→22:46)
--- NOTE | 2018-04-08 08:37 | P.PNCA ---
Subjective Interval history: No new complaints Medications and Allergies Active Medications: Active Medications Al Hydrox/Mg Hydrox/Simethicone (Mag-Al Plus Susp Liq) 30 ml PO Q4H PRN PRN Reason: INDIGESTION Last Admin: 04/08/18 08:33 Dose: 30 ml Albuterol (Duoneb Neb (Prn)) 1 ampul NEB Q2HR NEB PRN PRN Reason: WHEEZING Albuterol (Duoneb Neb (Shirley)) 1 ampul NEB Q6HR NEB SHIRLEY Last Admin: 04/08/18 04:31 Dose: 1 ampul Aspirin (Aspirin) 162.5 mg PO DAILY [facility] Last Admin: 04/08/18 08:32 Dose: 162.5 mg Bisacodyl (Dulcolax Supp) 10 mg RECTAL DAILY PRN PRN Reason: if no BM in last 24h Chlordiazepoxide (Librium) 10 mg PO Q8H [facility] Last Admin: 04/08/18 08:31 Dose: 10 mg Chlorhexidine Gluconate (Chlorhexidine 2% Cloth) 3 pack TOPICAL DAILY@0400 [facility] Stop: 04/09/18 03:59 Last Admin: 04/07/18 04:46 Dose: 3 pack Chlorhexidine Gluconate (Chlorhexidine 2% Cloth) 3 pack TOPICAL DAILY@0400 PRN PRN Reason: Extra cloth needed Stop: 04/09/18 03:59 Dextrose (D50w Vial) 50 ml IV.PUSH UNSCH PRN PRN Reason: PER HYPOGLYCEMIA PROTOCOL Furosemide (Lasix Inj) 40 mg IV.PUSH BID@0900,1800 [facility] Last Admin: 04/07/18 17:26 Dose: 40 mg Glucagon (Glucagon Inj) 1 mg OTHER PRN PRN PRN Reason: for Hypoglycemia Protocol Magnesium Sulfate 4 gm/ Sodium (Chloride) 100 mls @ 50 mls/hr IV.SIG UNSCH PRN PRN Reason: For Magnesium 0.9 - 1.1 mg/dL Magnesium Sulfate 2 gm/ Sodium (Chloride) 100 mls @ 50 mls/hr IV.SIG UNSCH PRN PRN Reason: For Magnesium 1.2 - 1.6 mg/dL Potassium Chloride (Kcl 40 Meq Premix Inj) 40 meq in 100 mls @ 25 mls/hr IV.SIG Q2H PRN PRN Reason: For Potassium 2.8 - 3.2 mEq/L Potassium Chloride (Kcl 20 Meq Premix Inj) 20 meq in 100 mls @ 50 mls/hr IV.SIG Q2H PRN PRN Reason: For Potassium 3.3 - 3.5 mEq/L Potassium Chloride (Kcl 40 Meq Premix Inj) 40 meq in 100 mls @ 25 mls/hr IV.SIG UNSCH PRN PRN Reason: For Potassium 3.3 - 3.5 mEq/L Potassium Chloride (Kcl 20 Meq Premix Inj) 20 meq in 100 mls @ 50 mls/hr IV.SIG Q2H PRN PRN Reason: For Potassium 2.8 - 3.2 mEq/L Sodium Phosphate 30 mmol/ (Sodium Chloride) 260 mls @ 42 mls/hr IV.SIG UNSCH PRN PRN Reason: For Phosphorus < 2.5 mg/dL Potassium Phosphate 30 mmol/ (Sodium Chloride) 260 mls @ 42 mls/hr IV.SIG UNSCH PRN PRN Reason: SEE LABEL COMMENTS Insulin Aspart (Novolog Inj) 5 units SQ TIDAC [facility] Last Admin: 04/08/18 08:27 Dose: 5 units Insulin Detemir (Levemir Inj) 10 unit SQ HS [facility] Last Admin: 04/07/18 21:02 Dose: 10 unit Insulin Human Regular (Novolin R Correctional Sugar Inj) 0 units SQ ACHS AND 3AM SHIRLEY; Protocol Last Admin: 04/08/18 08:26 Dose: 7 units Lactulose (Lactulose Liq) 30 ml PO BID [facility] Last Admin: 04/08/18 08:33 Dose: Not Given Lorazepam (Ativan Inj) 1 mg IV.PUSH Q4H PRN PRN Reason: agitation,withdrawal Lorazepam (Ativan) 0.5 mg PO Q6H PRN PRN Reason: anxiety/withdrawal Last Admin: 04/06/18 21:07 Dose: 0.5 mg Magnesium Oxide (Mag-Ox) 800 mg PO UNSCH PRN PRN Reason: For Magnesium 1.2 - 1.6 mg/dL Metoprolol Tartrate (Lopressor Inj) 2.5 mg IV.PUSH Q6H PRN PRN Reason: HR>100 Metoprolol Tartrate (Lopressor) 50 mg PO Q8H [facility] Last Admin: 04/08/18 08:31 Dose: 50 mg Ondansetron HCl (Zofran Inj) 4 mg IV.PUSH Q6H PRN PRN Reason: NAUSEA OR VOMITING Polyethylene Glycol (Miralax) 17 gm PO BID [facility] Last Admin: 04/08/18 08:33 Dose: 17 gm Potassium Bicarb/Potassium Chloride (K-Lyte Cl Eff) 50 meq PO UNSCH PRN PRN Reason: For Potassium 3.3 - 3.5 mEq/L Potassium Chloride (K-Dur) 20 meq PO BID [facility] Last Admin: 04/08/18 08:31 Dose: 20 meq Potassium Phosphate (K-Phos Original) 2,000 mg PO Q4H PRN PRN Reason: Phosphorus Less Than 2.5 mg/dL Potassium Phosphate (K-Phos Original) 2,000 mg PO UNSCH PRN PRN Reason: SEE LABEL COMMENTS Pravastatin Sodium (Pravachol) 80 mg PO HS [facility] Last Admin: 04/07/18 21:04 Dose: 80 mg Prednisone (Deltasone) 50 mg PO DAILY [facility]; Taper Stop: 04/14/18 08:59 Senna/Docusate Sodium (Lisa-Colace) 1 tab PO BID [facility] Last Admin: 04/08/18 08:32 Dose: 1 tab Sodium Chloride (Ns Flush) 2 ml IV.FLUSH BID [facility] Last Admin: 04/08/18 08:35 Dose: 2 ml Sodium Chloride (Ns Flush) 2 ml IV.FLUSH PRN PRN PRN Reason: FLUSH AFTER USING IV ACCESS Allergies Allergy/AdvReac Type Severity Reaction Status Date / Time No Known Allergies Allergy Verified 04/04/18 02:42 Home Medications Medication Instructions Recorded Confirmed Type aspirin 162 mg PO DAILY 04/04/18 04/04/18 History glipizide 5 mg PO DAILY 04/04/18 04/04/18 History losartan 25 mg PO DAILY 04/04/18 04/04/18 History metformin 500 mg PO BID 04/04/18 04/04/18 History metoprolol tartrate 50 mg PO BID 04/04/18 04/04/18 History nifedipine 60 mg PO DAILY 04/04/18 04/04/18 History simvastatin 40 mg PO QPM 04/04/18 04/04/18 History Physical Exam Vital signs: Vital Signs 04/07/18 09:55 04/07/18 09:58 04/07/18 11:00 Temperature 98 F Pulse Rate 93 H 76 Respiratory Rate 16 17 Blood Pressure 107/68 Pulse Oximetry 99 99 04/07/18 15:00 04/07/18 16:25 04/07/18 19:15 Temperature 98.2 F 98.6 F Pulse Rate 108 H 98 H 80 Respiratory Rate 18 17 18 Blood Pressure 104/67 114/67 Pulse Oximetry 98 04/07/18 20:55 04/07/18 23:20 04/08/18 00:00 Temperature 98.4 F Pulse Rate 80 93 H 102 H Respiratory Rate 18 16 Blood Pressure 117/72 Pulse Oximetry 97 95 95 04/08/18 03:00 04/08/18 04:00 04/08/18 04:32 Temperature 98.2 F Pulse Rate 89 91 H 76 Respiratory Rate 16 16 Blood Pressure 105/63 Pulse Oximetry 95 95 Intake & Output 04/07/18 04/08/18 04/08/18 18:59 06:59 18:59 Intake Total 480 / 480 480 / 480 Output Total 1125 / 1125 1000 / 1000 Balance -645 / -645 -520 / -520 Weight 82 kg Intake: Oral 480 / 480 480 / 480 Output: Urine Amount (Catheter) 1125 / 1125 1000 / 1000 Indwelling Temp Sensing 1125 / 1125 1000 / 1000 Catheter Other: Date of Last Bowel Movement 04/06/18 Narrative: GENERAL: 68-year-old male who appears older than stated age, moderate distress on BiPAP SKIN: warm/dry. HEAD: Atraumatic. Normocephalic. EYES: Pupils equal and round. No scleral icterus. ENT: No nasal bleeding or discharge. NECK: Trachea midline. Elevated JVD CARDIOVASCULAR: S1S2 RRR. Prominent grade 2 severe murmur RUSB RESPIRATORY: Much less use of accesory muscles today. Few bibasilar crackles. GASTROINTESTINAL: Abdomen soft, non-tender, nondistended. Hepatic and splenic margins not palpable. MUSCULOSKELETAL: No obvious deformities. No clubbing. No cyanosis. Trace ankle edema. NEUROLOGICAL: Awake and alert. No obvious cranial nerve deficits. Motor grossly within normal limits. Normal speech. - Urinary Catheter Management Indwelling Temp Sensing Catheter Cath placed during this visit: yes, but has since been removed by the nurse Reason for continuing: Decision to DC catheter Insertion date: 04/04/18 Insertion time: 19:45 Removal date: 04/08/18 Removal time: 06:33 Results 04/08/18 03:50 04/08/18 03:50 Coagulation 04/07/18 04/08/18 Range/Units 03:55 03:50 APTT 23.0 L D 21.3 L (23.4-31.7) sec CBC 04/07/18 04/08/18 Range/Units 03:55 03:50 WBC 15.0 H 10.3 (4.0-11.0) th/mm3 RBC 3.69 L 3.54 L (4.50-5.90) mil/mm3 Hgb 12.3 L 12.0 L (13.0-17.0) gm/dL Hct 35.7 L 34.4 L (39.0-51.0) % Plt Count 178 157 (150-450) th/mm3 Neut # (Auto) 14.0 H 9.4 H (1.8-7.7) th/mm3 Lymph # (Auto) 0.5 L 0.5 L (1.0-4.8) th/mm3 Ross # (Auto) 0.5 0.4 (0.0-0.9) th/mm3 Eos # (Auto) 0.0 0.0 (0.0-0.4) th/mm3 Baso # (Auto) 0.0 0.0 (0.0-0.2) th/mm3 Comprehensive Metabolic Panel 04/07/18 04/08/18 Range/Units 03:55 03:50 Sodium 138 138 (136-145) meq/L Potassium 4.8 4.9 (3.5-5.1) meq/L Chloride 105 104 (98-107) meq/L Carbon Dioxide 23.9 27.3 (21.0-32.0) meq/L BUN 26 H 26 H (7-18) mg/dL Creatinine 1.34 H 1.11 (0.60-1.30) mg/dL Calcium 8.3 L 8.5 (8.5-10.1) mg/dL Intake and Output 04/07/18 04/08/18 04/08/18 22:59 06:59 14:59 Intake Total 480 / 480 480 / 480 Output Total 1125 / 1125 1000 / 1000 Balance -645 / -645 -520 / -520 Intake: Oral 480 / 480 480 / 480 Output: Urine Amount (Catheter) 1125 / 1125 1000 / 1000 Indwelling Temp Sensing 1125 / 1125 1000 / 1000 Catheter Other: Date of Last Bowel Movement 04/06/18 Weight 82 kg Assessment and Plan - Assessment (1) Stenosis of prosthetic aortic valve Code(s): I35.0 - Nonrheumatic aortic (valve) stenosis Status: Acute (2) CHF (congestive heart failure) Code(s): I50.9 - Heart failure, unspecified Status: Acute (3) Alcohol abuse Code(s): F10.10 - Alcohol abuse, uncomplicated Status: Acute (4) COPD exacerbation Code(s): J44.1 - Chronic obstructive pulmonary disease with (acute) exacerbation Status: Acute - Plan Plan cardiac cath, poss PCI once he can tolerate being supine. Hopefully can have TAVR instead of open redo. NPO after MN for possible cath. 04/07/2018 Coronaries OK. Recommend TAVR this admit. Dr. White to see 04/08/2018 Contines to improve. Still has basilar rales. Check BMP AM
[2018-04-08] MEDS: predniSONE 10 MG Tablet PO SCH (08:39)
[2018-04-08] MEDS: Chlorhexidine Gluconate 2% 1 Pack (2 Cloths) TOPICAL SCH (08:41)
--- NOTE | 2018-04-08 17:47 | P.PNIM ---
Subjective Interval history: Patient is a 68-year-old male with past medical history significant for DM, HTN, aortic valve replacement 2007 (pericardial tissue valve), irregular heart rate, alcohol abuse/dependence who was brought in by [facility] for sob for a few days. Quit smoking about 10 years ago. Continues to drink heavily approximately 9 beers daily. 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 In the ER initially on nasal cannula at 4 L oxygen saturation was only in the mid 80s. Because of diffuse wheezing patient received IV Solu-Medrol 125 mg x1 and breathing treatments and subsequently was placed on BiPAP. Chest x-ray showed evidence of congestive heart failure, BNP was 1200. Patient was given a total of 120 mg of IV Lasix in the [facility] emergency department. Subsequently was transferred to CVICU at [facility] where I evaluated him. Patient also was noted to have severe metabolic acidosis secondary to lactic acidosis 5.8. This appears most likely secondary to poor perfusion. ABG showed pH of 7.37. pCO2 23, PO2 73, bicarb was 13 with a base excess of -11. I evaluated the patient in the ICU. He is on BiPAP in moderate distress. His clinical exam is consistent with CHF exacerbation. 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 And a stat echo had been ordered. Continue IV Lasix for diuresis along with breathing treatments. I am unable to do inotropic support at this time as severe aortic stenosis is not ruled out, also patient is in atrial fibrillation with RVR. Rate controlled with p.o. metoprolol and IV metoprolol as needed. Cardiology also had been consulted SUBJ 04/05: Patient remains in ICU, critical. Some worsening of shortness of breath overnight requiring BiPAP also required 50% oxygen to maintain sats about 90%. Chest x-ray stable pulmonary edema with small bilateral effusions. Currently on IV Lasix 40 mg every 12, will give additional 40 mg now. Showing signs and symptoms of alcohol withdrawal currently on scheduled low-dose Librium and as needed IV and p.o. Ativan. 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 Not requiring BiPAP at this time. Chest x-ray unchanged with mild pulmonary edema mild bilateral effusion however clinically improved. Urine output more than 3 L in 24 hours. Therapeutic on heparin. Will increase metoprolol after cardiac cath today. Discussed with Dr. Broderick 04/07: continues to improve. on simple facemask. continued adequate diuresis. denies complaints. 04-08 TRANSFERRED TO OUR SERVICE TODAY TRANSFERRED OUT OF ICU WILL PROBABLY NEED A TAVR BEFORE DC NO SOB AT THIS TIME, NO CHEST PAIN AM LABS DW RN AND PT INCREASE ACTIVITY Physical Exam Vital signs: Vital Signs 04/07/18 19:15 04/07/18 20:55 04/07/18 23:20 Temperature 98.6 F Pulse Rate 80 80 93 H Respiratory Rate 18 18 Blood Pressure 114/67 Pulse Oximetry 97 95 04/08/18 00:00 04/08/18 03:00 04/08/18 04:00 Temperature 98.4 F 98.2 F Pulse Rate 102 H 89 91 H Respiratory Rate 16 16 Blood Pressure 117/72 105/63 Pulse Oximetry 95 95 95 04/08/18 04:32 04/08/18 07:00 04/08/18 09:54 Temperature 97.1 F L Pulse Rate 76 86 89 Respiratory Rate 16 20 24 Blood Pressure 120/68 Pulse Oximetry 99 99 04/08/18 11:00 04/08/18 12:00 04/08/18 15:00 Temperature 97.8 F 98 F Pulse Rate 69 88 74 Respiratory Rate 22 18 Blood Pressure 94/56 L 94/56 L Pulse Oximetry 99 99 04/08/18 16:20 Temperature Pulse Rate 102 H Respiratory Rate 16 Blood Pressure Pulse Oximetry Intake & Output 04/07/18 04/08/18 04/08/18 18:59 06:59 18:59 Intake Total 480 / 480 480 / 480 Output Total 1125 / 1125 1000 / 1000 Balance -645 / -645 -520 / -520 Weight 82 kg Intake: Oral 480 / 480 480 / 480 Output: Urine Amount (Catheter) 1125 / 1125 1000 / 1000 Indwelling Temp Sensing 1125 / 1125 1000 / 1000 Catheter Other: Date of Last Bowel Movement 04/06/18 04/06/18 Narrative: GENERAL: 68-year-old male who appears older than stated age, moderate distress on BiPAP SKIN: warm/dry. HEAD: Atraumatic. Normocephalic. EYES: Pupils equal and round. No scleral icterus. ENT: No nasal bleeding or discharge. NECK: Trachea midline. Elevated JVD CARDIOVASCULAR: S1S2 RRR. Prominent grade 2 severe murmur RUSB RESPIRATORY: Much less use of accesory muscles today. Few bibasilar crackles. GASTROINTESTINAL: Abdomen soft, non-tender, nondistended. Hepatic and splenic margins not palpable. MUSCULOSKELETAL: No obvious deformities. No clubbing. No cyanosis. Trace ankle edema. NEUROLOGICAL: Awake and alert. No obvious cranial nerve deficits. Motor grossly within normal limits. Normal speech. INSIGHT AND JUDGEMENT ARE GOOD MOOD AND BEHAVIOR ARE APPROPRIATE - Urinary Catheter Management Indwelling Temp Sensing Catheter Cath placed during this visit: yes, but has since been removed by the nurse Reason for continuing: Decision to DC catheter Insertion date: 04/04/18 Insertion time: 19:45 Removal date: 04/08/18 Removal time: 06:00 Results - Labs CBC & Chem 7: 04/08/18 03:50 04/08/18 03:50 Laboratory Results - last 24 hr 04/07/18 04/08/18 04/08/18 20:55 03:50 03:50 WBC 10.3 RBC 3.54 L Hgb 12.0 L Hct 34.4 L MCV 97.0 MCH 33.9 MCHC 34.9 RDW 14.7 Plt Count 157 MPV 8.6 Neut % (Auto) 90.8 H Lymph % (Auto) 5.2 L Coffee % (Auto) 4.0 Eos % (Auto) 0.0 Baso % (Auto) 0.0 Neut # (Auto) 9.4 H Lymph # (Auto) 0.5 L Coffee # (Auto) 0.4 Eos # (Auto) 0.0 Baso # (Auto) 0.0 WBC Differential . Differential Comment Auto diff final APTT 21.3 L Sodium Potassium Chloride Carbon Dioxide Anion Gap BUN Creatinine Estimated GFR POC Glucose 254 H Random Glucose Calcium Phosphorus Magnesium Blood Type Antibody Screen 04/08/18 04/08/18 04/08/18 03:50 04:57 07:51 WBC RBC Hgb Hct MCV MCH MCHC RDW Plt Count MPV Neut % (Auto) Lymph % (Auto) Coffee % (Auto) Eos % (Auto) Baso % (Auto) Neut # (Auto) Lymph # (Auto) Coffee # (Auto) Eos # (Auto) Baso # (Auto) WBC Differential Differential Comment APTT Sodium 138 Potassium 4.9 Chloride 104 Carbon Dioxide 27.3 Anion Gap 7 BUN 26 H Creatinine 1.11 Estimated GFR 66 L POC Glucose 263 H 95 Random Glucose 246 H Calcium 8.5 Phosphorus 3.9 Magnesium 2.2 Blood Type Antibody Screen 04/08/18 04/08/18 04/08/18 08:12 08:58 12:07 WBC RBC Hgb Hct MCV MCH MCHC RDW Plt Count MPV Neut % (Auto) Lymph % (Auto) Coffee % (Auto) Eos % (Auto) Baso % (Auto) Neut # (Auto) Lymph # (Auto) Coffee # (Auto) Eos # (Auto) Baso # (Auto) WBC Differential Differential Comment APTT Sodium Potassium Chloride Carbon Dioxide Anion Gap BUN Creatinine Estimated GFR POC Glucose 250 H 257 H Random Glucose Calcium Phosphorus Magnesium Blood Type A Positive Antibody Screen Negative 04/08/18 16:55 WBC RBC Hgb Hct MCV MCH MCHC RDW Plt Count MPV Neut % (Auto) Lymph % (Auto) Coffee % (Auto) Eos % (Auto) Baso % (Auto) Neut # (Auto) Lymph # (Auto) Coffee # (Auto) Eos # (Auto) Baso # (Auto) WBC Differential Differential Comment APTT Sodium Potassium Chloride Carbon Dioxide Anion Gap BUN Creatinine Estimated GFR POC Glucose 187 H Random Glucose Calcium Phosphorus Magnesium Blood Type Antibody Screen - Imaging ITS Impressions Thoracic Aorta CT 04/04/18 03:21 CONCLUSION: 1. No thoracic or abdominal aortic aneurysm or dissection. Moderate to severe atherosclerotic disease. 2. Mild congestive heart failure. 3. Atrophic right kidney. Fatty liver. Chest X-Ray 04/06/18 06:00 CONCLUSION: Bilateral mostly basilar airspace disease with small effusions similar to April 05. - Procedures DATE: 04/06/2018 PROCEDURE PERFORMED: Coronary angiography, right femoral arterial approach. DESCRIPTION OF PROCEDURE: The patient was brought to the cardiac catheterization lab in a fasting state. Using 1% lidocaine for local anesthesia, a femoral access was obtained of the right common femoral artery; and a 6-[place] sheath placed. Coronary angiography was then completed using a left 5 and a 3DRC catheter. Sheath is to be pulled manually. FINDINGS: CORONARY ANGIOGRAPHY: Coronary circulation is left dominant. The left anterior descending artery has about 20% proximal disease. The remainder of the coronary arteries appear normal. CONCLUSIONS: Minimal nonobstructive coronary artery disease. The patient should be a candidate for transcatheter aortic valve replacement at this point. Hans Broderick MD Assessment and Plan - Plan NEURO: Alcohol withdrawal syndrome Alcohol dependence -Currently on scheduled Librium and Ativan as needed for alcohol withdrawal -Strongly advised to quit drinking -Supplement multivitamin thiamine -Patient drinks about 9 beers daily - improving symptoms. RESP: Acute hypoxemic respiratory failure Pulmonary edema Probable COPD with exacerbation -Continue PRN BiPAP 04/15. Wean FiO2 to keep saturation more than 90%, currently on 50% FM -DuoNeb every 6 hours scheduled and as needed -start steroid taper today. 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 Prostatic tissue aortic valve with critical aortic stenosis. [id number] AR. AV mean gradient is 86 mmHg. -The estimated pulmonary arterial pressure is 60.1 mmHg. [id number] MR. -TAVR vs open AVR decision based on cardiac cath findings -Continue Lasix 40 mg every 12 -Continue home aspirin and metoprolol, A. fib rate controlled with beta- blockers. -Increase metoprolol to 75 mg every 8 hours for better rate control -IV heparin per [place] protocol -Metoprolol 2.5 mg IV every 6 hours as needed for heart rate more than 100 -Lactic acidosis has cleared GI: -IV famotidine. Cardiac diet : -Monitor renal function closely. d/c garcia. -IV Lasix as above ID: -Monitor closely for evidence of infection -No antibiotics at this time -Leukocytosis secondary to steroids HEME: -Monitor CBC, coags ENDO: Type 2 diabetes Hyperglycemia poorly controlled -Electrolyte replacement per protocol -Sliding scale insulin, with AC and at bedtime pre-meal insulin and also started on Levemir 10 units nightly PROPH: -Bilateral lower extremity SCDs. IV heparin/famotidine LINES: -Utilize peripheral IVs, central line if needed INCREASE ACTIVITY AM LABS DW RN AND PT Code Status: FULL CODE Discussed Condition With: RN AND PT Discharge Planning: CRISTHIAN RN AND PT
[2018-04-08] MEDS: Insulin Detemir Inj 1,000 UNIT/10 ML Vial SQ SCH (22:46)
[2018-04-09] MEDS: Metoprolol Tartrate 50 MG Tablet PO SCH ×4 (01:00→23:45)
[2018-04-09] MEDS: Insulin NovoLIN Regular Correctional Sugar Inj SQ SCH ×5 (04:47→21:38)
[2018-04-09 06:01] LABS: Baso % (Auto) 0.1 % (0.0-2.0); Eos # (Auto) 0.1 th/mm3 (0.0-0.4); Eos % (Auto) 0.6 % (0.0-4.0); Hematocrit 37.6 % (39.0-51.0); Hemoglobin 12.7 gm/dL (13.0-17.0); Lymph # (Auto) 1.9 th/mm3 (1.0-4.8); Lymph % (Auto) 13.8 % (9.0-44.0); Mean Corpuscular HGB Conc 33.9 % (32.0-36.0); Mean Corpuscular Hemoglobin 32.7 pg (27.0-34.0); Mean Corpuscular Volume 96.6 fL (80.0-100.0); Mean Platelet Volume 8.7 fL (7.0-11.0); Mono % (Auto) 7.1 % (0.0-8.0); Neut # (Auto) 11.1 th/mm3 (1.8-7.7); Neut % (Auto) 78.4 % (16.0-70.0); Platelet Count 189 th/mm3 (150-450); Red Blood Count 3.89 mil/mm3 (4.50-5.90); Red Cell Distribution Width 14.8 % (11.6-17.2); White Blood Count 14.1 th/mm3 (4.0-11.0)
[2018-04-09 06:15] LABS: Activated Partial Thrombo Time 21.6 sec (23.4-31.7); Prothrombin Time 10.6 sec (9.8-11.6)
[2018-04-09 06:41] LABS: Alanine Aminotransferase 55 U/L (12-78); Albumin 3.1 g/dL (3.4-5.0); Alkaline Phosphatase 54 U/L (45-117); Anion Gap 5 meq/L (5-15); Aspartate Aminotransferase 29 U/L (15-37); Blood Urea Nitrogen 28 mg/dL (7-18); Carbon Dioxide 30.9 meq/L (21.0-32.0); Chloride 105 meq/L (98-107); Free T4 (Free Thyroxine) 0.87 ng/dL (0.76-1.46); Glomerular Filtration Rate 62 mL/min (>89); Glucose,Random 78 mg/dL (74-106); Magnesium 2.6 mg/dL (1.5-2.5); Potassium 4.7 meq/L (3.5-5.1); Sodium 141 meq/L (136-145); Total Protein 6.3 g/dL (6.4-8.2)
[2018-04-09] MEDS: Aluminum/Magnesium/Simethacone Susp 30 ML UDC PO PRN ×3 (08:37→17:46)
[2018-04-09] MEDS: Polyethylene Glycol 3350 17 GM Packet PO SCH ×2 (08:37→21:40)
[2018-04-09] MEDS: predniSONE 10 MG Tablet PO SCH (08:38)
[2018-04-09] MEDS: Aspirin 325 MG Tablet PO SCH (08:38)
[2018-04-09] MEDS: Senna/Docusate Sodium 8.6/50 MG Tablet PO SCH ×2 (08:39→21:39)
--- NOTE | 2018-04-09 08:42 | P.PNCA ---
Subjective Interval history: No new complaints Medications and Allergies Active Medications: Active Medications Al Hydrox/Mg Hydrox/Simethicone (Mag-Al Plus Susp Liq) 30 ml PO Q4H PRN PRN Reason: INDIGESTION Last Admin: 04/08/18 17:02 Dose: 30 ml Albuterol (Duoneb Neb (Prn)) 1 ampul NEB Q2HR NEB PRN PRN Reason: WHEEZING Albuterol (Duoneb Neb (Shirley)) 1 ampul NEB Q6HR NEB [facility] Last Admin: 04/09/18 03:00 Dose: Not Given Aspirin (Aspirin) 162.5 mg PO DAILY [facility] Last Admin: 04/08/18 08:32 Dose: 162.5 mg Bisacodyl (Dulcolax Supp) 10 mg RECTAL DAILY PRN PRN Reason: if no BM in last 24h Chlordiazepoxide (Librium) 10 mg PO Q8H [facility] Last Admin: 04/09/18 01:00 Dose: 10 mg Dextrose (D50w Vial) 50 ml IV.PUSH UNSCH PRN PRN Reason: PER HYPOGLYCEMIA PROTOCOL Furosemide (Lasix Inj) 40 mg IV.PUSH BID@0900,1800 [facility] Last Admin: 04/08/18 17:02 Dose: 40 mg Glucagon (Glucagon Inj) 1 mg OTHER PRN PRN PRN Reason: for Hypoglycemia Protocol Magnesium Sulfate 4 gm/ Sodium (Chloride) 100 mls @ 50 mls/hr IV.SIG UNSCH PRN PRN Reason: For Magnesium 0.9 - 1.1 mg/dL Magnesium Sulfate 2 gm/ Sodium (Chloride) 100 mls @ 50 mls/hr IV.SIG UNSCH PRN PRN Reason: For Magnesium 1.2 - 1.6 mg/dL Potassium Chloride (Kcl 40 Meq Premix Inj) 40 meq in 100 mls @ 25 mls/hr IV.SIG Q2H PRN PRN Reason: For Potassium 2.8 - 3.2 mEq/L Potassium Chloride (Kcl 20 Meq Premix Inj) 20 meq in 100 mls @ 50 mls/hr IV.SIG Q2H PRN PRN Reason: For Potassium 3.3 - 3.5 mEq/L Potassium Chloride (Kcl 40 Meq Premix Inj) 40 meq in 100 mls @ 25 mls/hr IV.SIG UNSCH PRN PRN Reason: For Potassium 3.3 - 3.5 mEq/L Potassium Chloride (Kcl 20 Meq Premix Inj) 20 meq in 100 mls @ 50 mls/hr IV.SIG Q2H PRN PRN Reason: For Potassium 2.8 - 3.2 mEq/L Sodium Phosphate 30 mmol/ (Sodium Chloride) 260 mls @ 42 mls/hr IV.SIG UNSCH PRN PRN Reason: For Phosphorus < 2.5 mg/dL Potassium Phosphate 30 mmol/ (Sodium Chloride) 260 mls @ 42 mls/hr IV.SIG UNSCH PRN PRN Reason: SEE LABEL COMMENTS Insulin Aspart (Novolog Inj) 5 units SQ TIDAC [facility] Last Admin: 04/08/18 17:02 Dose: 5 units Insulin Detemir (Levemir Inj) 10 unit SQ HS [facility] Last Admin: 04/08/18 22:46 Dose: 10 unit Insulin Human Regular (Novolin R Correctional Sugar Inj) 0 units SQ ACHS AND 3AM SHIRLEY; Protocol Last Admin: 04/09/18 04:47 Dose: Not Given Lactulose (Lactulose Liq) 30 ml PO BID [facility] Last Admin: 04/08/18 22:46 Dose: Not Given Lorazepam (Ativan Inj) 1 mg IV.PUSH Q4H PRN PRN Reason: agitation,withdrawal Lorazepam (Ativan) 0.5 mg PO Q6H PRN PRN Reason: anxiety/withdrawal Last Admin: 04/06/18 21:07 Dose: 0.5 mg Magnesium Oxide (Mag-Ox) 800 mg PO UNSCH PRN PRN Reason: For Magnesium 1.2 - 1.6 mg/dL Metoprolol Tartrate (Lopressor Inj) 2.5 mg IV.PUSH Q6H PRN PRN Reason: HR>100 Metoprolol Tartrate (Lopressor) 50 mg PO Q8H [facility] Last Admin: 04/09/18 01:00 Dose: 50 mg Ondansetron HCl (Zofran Inj) 4 mg IV.PUSH Q6H PRN PRN Reason: NAUSEA OR VOMITING Polyethylene Glycol (Miralax) 17 gm PO BID [facility] Last Admin: 04/08/18 22:46 Dose: 17 gm Potassium Bicarb/Potassium Chloride (K-Lyte Cl Eff) 50 meq PO UNSCH PRN PRN Reason: For Potassium 3.3 - 3.5 mEq/L Potassium Chloride (K-Dur) 20 meq PO BID [facility] Last Admin: 04/08/18 22:45 Dose: 20 meq Potassium Phosphate (K-Phos Original) 2,000 mg PO Q4H PRN PRN Reason: Phosphorus Less Than 2.5 mg/dL Potassium Phosphate (K-Phos Original) 2,000 mg PO UNSCH PRN PRN Reason: SEE LABEL COMMENTS Pravastatin Sodium (Pravachol) 80 mg PO HS [facility] Last Admin: 04/08/18 22:45 Dose: 80 mg Prednisone (Deltasone) 50 mg PO DAILY [facility]; Taper Stop: 04/14/18 08:59 Last Admin: 04/08/18 08:39 Dose: 50 mg Senna/Docusate Sodium (Lisa-Colace) 1 tab PO BID [facility] Last Admin: 04/08/18 22:45 Dose: 1 tab Sodium Chloride (Ns Flush) 2 ml IV.FLUSH BID [facility] Last Admin: 04/08/18 22:46 Dose: 2 ml Sodium Chloride (Ns Flush) 2 ml IV.FLUSH PRN PRN PRN Reason: FLUSH AFTER USING IV ACCESS Allergies Allergy/AdvReac Type Severity Reaction Status Date / Time No Known Allergies Allergy Verified 04/04/18 02:42 Home Medications Medication Instructions Recorded Confirmed Type aspirin 162 mg PO DAILY 04/04/18 04/04/18 History glipizide 5 mg PO DAILY 04/04/18 04/04/18 History losartan 25 mg PO DAILY 04/04/18 04/04/18 History metformin 500 mg PO BID 04/04/18 04/04/18 History metoprolol tartrate 50 mg PO BID 04/04/18 04/04/18 History nifedipine 60 mg PO DAILY 04/04/18 04/04/18 History simvastatin 40 mg PO QPM 04/04/18 04/04/18 History Physical Exam Vital signs: Vital Signs 04/08/18 09:54 04/08/18 11:00 04/08/18 12:00 Temperature 97.8 F Pulse Rate 89 69 88 Respiratory Rate 24 22 Blood Pressure 94/56 L Pulse Oximetry 99 99 04/08/18 13:00 04/08/18 14:00 04/08/18 15:00 Temperature 98 F Pulse Rate 98 H 84 69 Respiratory Rate 18 Blood Pressure 94/56 L Pulse Oximetry 99 04/08/18 16:00 04/08/18 16:20 04/08/18 17:00 Temperature Pulse Rate 94 H 102 H 96 H Respiratory Rate 16 Blood Pressure Pulse Oximetry 04/08/18 18:00 04/08/18 19:00 04/08/18 19:45 Temperature 98.0 F Pulse Rate 99 H 85 Respiratory Rate 17 Blood Pressure 143/74 H Pulse Oximetry 96 98 04/08/18 20:00 04/08/18 21:00 04/08/18 22:00 Temperature Pulse Rate 90 80 85 Respiratory Rate Blood Pressure Pulse Oximetry 04/08/18 23:00 04/09/18 03:00 04/09/18 04:00 Temperature 97.9 F 98.7 F Pulse Rate 85 85 81 Respiratory Rate 17 17 Blood Pressure 105/79 105/79 Pulse Oximetry 99 99 04/09/18 05:00 Temperature Pulse Rate 81 Respiratory Rate Blood Pressure Pulse Oximetry Intake & Output 04/08/18 04/09/18 04/09/18 18:59 06:59 18:59 Intake Total 720 / 720 420 / 420 Output Total 550 / 550 750 / 750 Balance 170 / 170 -330 / -330 Weight 84 kg Intake: Oral 720 / 720 420 / 420 Output: Urine 550 / 550 750 / 750 Other: # Voids 2 Date of Last Bowel Movement 04/06/18 Narrative: GENERAL: alert NAD SKIN: warm/dry. HEAD: Atraumatic. Normocephalic. EYES: Pupils equal and round. No scleral icterus. ENT: No nasal bleeding or discharge. NECK: Trachea midline. Elevated JVD CARDIOVASCULAR: S1S2 RRR. Prominent grade 2 severe murmur RUSB RESPIRATORY: Much less use of accesory muscles today. Few bibasilar crackles. GASTROINTESTINAL: Abdomen soft, non-tender, nondistended. Hepatic and splenic margins not palpable. MUSCULOSKELETAL: No obvious deformities. No clubbing. No cyanosis. Trace ankle edema. NEUROLOGICAL: Awake and alert. No obvious cranial nerve deficits. Motor grossly within normal limits. Normal speech. INSIGHT AND JUDGEMENT ARE GOOD MOOD AND BEHAVIOR ARE APPROPRIATE - Urinary Catheter Management Indwelling Temp Sensing Catheter Cath placed during this visit: yes, but has since been removed by the nurse Reason for continuing: Decision to DC catheter Insertion date: 04/04/18 Insertion time: 19:45 Removal date: 04/08/18 Removal time: 15:00 Results 04/09/18 05:48 04/09/18 05:45 Cardiac Enzymes 04/09/18 Range/Units 05:45 AST 29 (15-37) U/L Coagulation 04/08/18 04/09/18 Range/Units 03:50 05:48 PT 10.6 (9.8-11.6) sec APTT 21.3 L 21.6 L (23.4-31.7) sec CBC 04/08/18 04/09/18 Range/Units 03:50 05:48 WBC 10.3 14.1 H (4.0-11.0) th/mm3 RBC 3.54 L 3.89 L (4.50-5.90) mil/mm3 Hgb 12.0 L 12.7 L (13.0-17.0) gm/dL Hct 34.4 L 37.6 L (39.0-51.0) % Plt Count 157 189 (150-450) th/mm3 Neut # (Auto) 9.4 H 11.1 H (1.8-7.7) th/mm3 Lymph # (Auto) 0.5 L 1.9 (1.0-4.8) th/mm3 Dubois # (Auto) 0.4 1.0 H (0.0-0.9) th/mm3 Eos # (Auto) 0.0 0.1 (0.0-0.4) th/mm3 Baso # (Auto) 0.0 0.0 (0.0-0.2) th/mm3 Comprehensive Metabolic Panel 04/08/18 04/09/18 Range/Units 03:50 05:45 Sodium 138 141 (136-145) meq/L Potassium 4.9 4.7 (3.5-5.1) meq/L Chloride 104 105 (98-107) meq/L Carbon Dioxide 27.3 30.9 (21.0-32.0) meq/L BUN 26 H 28 H (7-18) mg/dL Creatinine 1.11 1.17 (0.60-1.30) mg/dL Calcium 8.5 9.0 (8.5-10.1) mg/dL AST 29 (15-37) U/L ALT 55 (12-78) U/L Alkaline Phosphatase 54 (45-117) U/L Total Protein 6.3 L (6.4-8.2) g/dL Albumin 3.1 L (3.4-5.0) g/dL Intake and Output 04/08/18 04/09/18 04/09/18 22:59 06:59 14:59 Intake Total 720 / 720 420 / 420 Output Total 550 / 550 750 / 750 Balance 170 / 170 -330 / -330 Intake: Oral 720 / 720 420 / 420 Output: Urine 550 / 550 750 / 750 Other: # Voids 2 Date of Last Bowel Movement 04/06/18 Weight 84 kg Assessment and Plan - Assessment (1) Stenosis of prosthetic aortic valve Code(s): I35.0 - Nonrheumatic aortic (valve) stenosis Status: Acute (2) CHF (congestive heart failure) Code(s): I50.9 - Heart failure, unspecified Status: Acute (3) Alcohol abuse Code(s): F10.10 - Alcohol abuse, uncomplicated Status: Acute (4) COPD exacerbation Code(s): J44.1 - Chronic obstructive pulmonary disease with (acute) exacerbation Status: Acute - Plan Plan cardiac cath, poss PCI once he can tolerate being supine. Hopefully can have TAVR instead of open redo. NPO after MN for possible cath. 04/07/2018 Coronaries OK. Recommend TAVR this admit. Dr. White to see 04/08/2018 Contines to improve. Still has basilar rales. Check BMP AM 04/09/2018 Severe , awaiting TAVR
--- NOTE | 2018-04-09 10:37 | P.PNIM ---
Subjective Interval history: Patient is a 68-year-old male with past medical history significant for DM, HTN, aortic valve replacement 2007 (pericardial tissue valve), irregular heart rate, alcohol abuse/dependence who was brought in by [facility] for sob for a few days. Quit smoking about 10 years ago. Continues to drink heavily approximately 9 beers daily. 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 In the ER initially on nasal cannula at 4 L oxygen saturation was only in the mid 80s. Because of diffuse wheezing patient received IV Solu-Medrol 125 mg x1 and breathing treatments and subsequently was placed on BiPAP. Chest x-ray showed evidence of congestive heart failure, BNP was 1200. Patient was given a total of 120 mg of IV Lasix in the [place] emergency department. Subsequently was transferred to CVICU at [facility] where I evaluated him. Patient also was noted to have severe metabolic acidosis secondary to lactic acidosis 5.8. This appears most likely secondary to poor perfusion. ABG showed pH of 7.37. pCO2 23, PO2 73, bicarb was 13 with a base excess of -11. I evaluated the patient in the ICU. He is on BiPAP in moderate distress. His clinical exam is consistent with CHF exacerbation. 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 And a stat echo had been ordered. Continue IV Lasix for diuresis along with breathing treatments. I am unable to do inotropic support at this time as severe aortic stenosis is not ruled out, also patient is in atrial fibrillation with RVR. Rate controlled with p.o. metoprolol and IV metoprolol as needed. Cardiology also had been consulted SUBJ 04/05: Patient remains in ICU, critical. Some worsening of shortness of breath overnight requiring BiPAP also required 50% oxygen to maintain sats about 90%. Chest x-ray stable pulmonary edema with small bilateral effusions. Currently on IV Lasix 40 mg every 12, will give additional 40 mg now. Showing signs and symptoms of alcohol withdrawal currently on scheduled low-dose Librium and as needed IV and p.o. Ativan. 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 Not requiring BiPAP at this time. Chest x-ray unchanged with mild pulmonary edema mild bilateral effusion however clinically improved. Urine output more than 3 L in 24 hours. Therapeutic on heparin. Will increase metoprolol after cardiac cath today. Discussed with Dr. Broderick 04/07: continues to improve. on simple facemask. continued adequate diuresis. denies complaints. 04-08 TRANSFERRED TO OUR SERVICE TODAY TRANSFERRED OUT OF ICU WILL PROBABLY NEED A TAVR BEFORE DC NO SOB AT THIS TIME, NO CHEST PAIN AM LABS DW RN AND PT INCREASE ACTIVITY 04-[address] OF CHEST FOR TAVR TODAY DW RN AND PT ON 2L BY [place] NOW NO CHEST PAIN NO SOB DW RN AND PT INCREASE ACTIVITY AWAIT TAVR BEFORE DC Physical Exam Vital signs: Vital Signs 04/08/18 11:00 04/08/18 12:00 04/08/18 13:00 Temperature 97.8 F Pulse Rate 69 88 98 H Respiratory Rate 22 Blood Pressure 94/56 L Pulse Oximetry 99 04/08/18 14:00 04/08/18 15:00 04/08/18 16:00 Temperature 98 F Pulse Rate 84 69 94 H Respiratory Rate 18 Blood Pressure 94/56 L Pulse Oximetry 99 04/08/18 16:20 04/08/18 17:00 04/08/18 18:00 Temperature Pulse Rate 102 H 96 H 99 H Respiratory Rate 16 Blood Pressure Pulse Oximetry 04/08/18 19:00 04/08/18 19:45 04/08/18 20:00 Temperature 98.0 F Pulse Rate 85 90 Respiratory Rate 17 Blood Pressure 143/74 H Pulse Oximetry 96 98 04/08/18 21:00 04/08/18 22:00 04/08/18 23:00 Temperature 97.9 F Pulse Rate 80 85 85 Respiratory Rate 17 Blood Pressure 105/79 Pulse Oximetry 99 04/09/18 03:00 04/09/18 04:00 04/09/18 05:00 Temperature 98.7 F Pulse Rate 85 81 81 Respiratory Rate 17 Blood Pressure 105/79 Pulse Oximetry 99 04/09/18 09:03 Temperature Pulse Rate 86 Respiratory Rate 18 Blood Pressure Pulse Oximetry Intake & Output 04/08/18 04/09/18 04/09/18 18:59 06:59 18:59 Intake Total 720 / 720 420 / 420 Output Total 550 / 550 750 / 750 Balance 170 / 170 -330 / -330 Weight 84 kg Intake: Oral 720 / 720 420 / 420 Output: Urine 550 / 550 750 / 750 Other: # Voids 2 Date of Last Bowel Movement 04/06/18 Narrative: GENERAL: alert NAD SKIN: warm/dry. HEAD: Atraumatic. Normocephalic. EYES: Pupils equal and round. No scleral icterus. ENT: No nasal bleeding or discharge. NECK: Trachea midline. Elevated JVD CARDIOVASCULAR: S1S2 RRR. Prominent grade 2 severe murmur RUSB RESPIRATORY: Much less use of accesory muscles today. Few bibasilar crackles. GASTROINTESTINAL: Abdomen soft, non-tender, nondistended. Hepatic and splenic margins not palpable. MUSCULOSKELETAL: No obvious deformities. No clubbing. No cyanosis. Trace ankle edema. NEUROLOGICAL: Awake and alert. No obvious cranial nerve deficits. Motor grossly within normal limits. Normal speech. INSIGHT AND JUDGEMENT ARE GOOD MOOD AND BEHAVIOR ARE APPROPRIATE - Urinary Catheter Management Indwelling Temp Sensing Catheter Cath placed during this visit: yes, but has since been removed by the nurse Reason for continuing: Decision to DC catheter Insertion date: 04/04/18 Insertion time: 19:45 Removal date: 04/08/18 Removal time: 15:00 Results - Labs CBC & Chem 7: 04/09/18 05:48 04/09/18 05:45 Laboratory Results - last 24 hr 04/08/18 04/08/18 04/08/18 12:07 16:55 22:49 WBC RBC Hgb Hct MCV MCH MCHC RDW Plt Count MPV Neut % (Auto) Lymph % (Auto) Garza % (Auto) Eos % (Auto) Baso % (Auto) Neut # (Auto) Lymph # (Auto) Garza # (Auto) Eos # (Auto) Baso # (Auto) WBC Differential Differential Comment PT INR APTT Sodium Potassium Chloride Carbon Dioxide Anion Gap BUN Creatinine Estimated GFR POC Glucose 257 H 187 H 252 H Random Glucose Calcium Phosphorus Magnesium Total Bilirubin AST ALT Alkaline Phosphatase Total Protein Albumin TSH Free T4 04/09/18 04/09/18 04/09/18 02:39 05:45 05:48 WBC RBC Hgb Hct MCV MCH MCHC RDW Plt Count MPV Neut % (Auto) Lymph % (Auto) Garza % (Auto) Eos % (Auto) Baso % (Auto) Neut # (Auto) Lymph # (Auto) Garza # (Auto) Eos # (Auto) Baso # (Auto) WBC Differential Differential Comment PT 10.6 INR 1.0 APTT 21.6 L Sodium 141 Potassium 4.7 Chloride 105 Carbon Dioxide 30.9 Anion Gap 5 BUN 28 H Creatinine 1.17 Estimated GFR 62 L POC Glucose 117 H Random Glucose 78 D Calcium 9.0 Phosphorus 4.0 Magnesium 2.6 H Total Bilirubin 0.8 AST 29 ALT 55 Alkaline Phosphatase 54 Total Protein 6.3 L Albumin 3.1 L TSH 2.930 Free T4 0.87 04/09/18 04/09/18 05:48 08:09 WBC 14.1 H RBC 3.89 L Hgb 12.7 L Hct 37.6 L MCV 96.6 MCH 32.7 MCHC 33.9 RDW 14.8 Plt Count 189 MPV 8.7 Neut % (Auto) 78.4 H Lymph % (Auto) 13.8 Garza % (Auto) 7.1 Eos % (Auto) 0.6 Baso % (Auto) 0.1 Neut # (Auto) 11.1 H Lymph # (Auto) 1.9 Garza # (Auto) 1.0 H Eos # (Auto) 0.1 Baso # (Auto) 0.0 WBC Differential . Differential Comment Auto diff final PT INR APTT Sodium Potassium Chloride Carbon Dioxide Anion Gap BUN Creatinine Estimated GFR POC Glucose 113 H Random Glucose Calcium Phosphorus Magnesium Total Bilirubin AST ALT Alkaline Phosphatase Total Protein Albumin TSH Free T4 - Imaging ITS Impressions Thoracic Aorta CT 04/04/18 03:21 CONCLUSION: 1. No thoracic or abdominal aortic aneurysm or dissection. Moderate to severe atherosclerotic disease. 2. Mild congestive heart failure. 3. Atrophic right kidney. Fatty liver. Chest X-Ray 04/06/18 06:00 CONCLUSION: Bilateral mostly basilar airspace disease with small effusions similar to April 05. - Procedures DATE: 04/06/2018 PROCEDURE PERFORMED: Coronary angiography, right femoral arterial approach. DESCRIPTION OF PROCEDURE: The patient was brought to the cardiac catheterization lab in a fasting state. Using 1% lidocaine for local anesthesia, a femoral access was obtained of the right common femoral artery; and a 6-Uzbek sheath placed. Coronary angiography was then completed using a left 5 and a 3DRC catheter. Sheath is to be pulled manually. FINDINGS: CORONARY ANGIOGRAPHY: Coronary circulation is left dominant. The left anterior descending artery has about 20% proximal disease. The remainder of the coronary arteries appear normal. CONCLUSIONS: Minimal nonobstructive coronary artery disease. The patient should be a candidate for transcatheter aortic valve replacement at this point. Hans Broderick MD Assessment and Plan - Plan NEURO: Alcohol withdrawal syndrome Alcohol dependence -Currently on scheduled Librium and Ativan as needed for alcohol withdrawal -Strongly advised to quit drinking -Supplement multivitamin thiamine -Patient drinks about 9 beers daily - improving symptoms. RESP: Acute hypoxemic respiratory failure Pulmonary edema Probable COPD with exacerbation -Continue PRN BiPAP 04/15. Wean FiO2 to keep saturation more than 90%, currently on 50% FM -DuoNeb every 6 hours scheduled and as needed -start steroid taper today. 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 Prostatic tissue aortic valve with critical aortic stenosis. [id number] AR. AV mean gradient is 86 mmHg. -The estimated pulmonary arterial pressure is 60.1 mmHg. [id number] MR. -TAVR vs open AVR decision based on cardiac cath findings -Continue Lasix 40 mg every 12 -Continue home aspirin and metoprolol, A. fib rate controlled with beta- blockers. -Increase metoprolol to 75 mg every 8 hours for better rate control -IV heparin per [place] protocol -Metoprolol 2.5 mg IV every 6 hours as needed for heart rate more than 100 -Lactic acidosis has cleared FOR CT OF CHEST FOR TAVR TODAY 04-09 GI: -IV famotidine. Cardiac diet : -Monitor renal function closely. d/c garcia. -IV Lasix as above ID: -Monitor closely for evidence of infection -No antibiotics at this time -Leukocytosis secondary to steroids HEME: -Monitor CBC, coags ENDO: Type 2 diabetes Hyperglycemia poorly controlled -Electrolyte replacement per protocol -Sliding scale insulin, with AC and at bedtime pre-meal insulin and also started on Levemir 10 units nightly PROPH: -Bilateral lower extremity SCDs. IV heparin/famotidine LINES: -Utilize peripheral IVs, central line if needed INCREASE ACTIVITY AM LABS DW RN AND PT 04-[address] FOR TAVR TODAY Code Status: FULL CODE Discussed Condition With: RN AND PT Discharge Planning: ONCE HAS HAD TAVR
--- NOTE | 2018-04-09 17:30 | CT ---
EXAM DATE: 04/09/2018 5:08 PM EST AGE/SEX: 68 years / Male INDICATIONS: TAVR. CLINICAL DATA: This is the patient's initial encounter. Patient reports that signs and symptoms have been present for 1 day and indicates a pain score of 5/10. MEDICAL/SURGICAL HISTORY: Diabetes. Hypertension. Cardiovascular disease. . Heart valve replaceme nt. RADIATION DOSE: 40.12 CTDI (mGy) COMPARISON: [facility], CTA THOR ABD AORTA W CONTRAST W 3D, 04/04/2018. . TECHNIQUE: Volumetric scanning was performed using a multi-row detector CT scanner during bolus infu roxana of 90 ml Omnipaque 350 (iohexol) nonionic water-soluble contrast as a single exam dose. The da ta was post processed with a variety of visualization algorithms including full volume maximum intens ity projection, multi-planar sliding thin slab reformation, curved planar reformation, and surface re ndering techniques. Using automated exposure control and adjustment of the mA and/or kV according to patient size, radiation dose was kept as low as reasonably achievable to obtain optimal diagnostic q uality images. DICOM format image data is available electronically for review and comparison. FINDINGS: CARDIAC: The coronary system is left dominant. There is patchy moderate eccentric calcific plaquing most notably involving the LAD AORTIC ROOT/VALVE: 3 cusps are evident with extensive calcifications. The aortic root measures 35 mm. Mid thoracic aorta measures 28 mm with patchy intimal calcifications. THORACIC AORTA: The thoracic aortic root is normal with normal branching of the great vessels. Ther e is no evidence of aneurysm or dissection. There is dense calcific occlusion of the origin of the le ft subclavian artery. Is mild eccentric stenosis at the origin of the left common carotid artery. Mod erate calcific stenosis present at the origin of the right brachiocephalic artery. ABDOMINAL AORTA: Patchy atheromatous irregularity and dense intimal calcifications present. Variant visceral anatomy is identified with separate origin of splenic left gastric and hepatic arteries from the aorta. SMA: High-grade ostial stenosis RIGHT RENAL ARTERY: High-grade stenosis. Moderately atrophic kidney LEFT RENAL ARTERY: High-grade ostial stenosis, healthy-appearing kidney RIGHT COMMON ILIAC: Mild eccentric calcific plaque at the origin of the right common iliac. Patchy m ild nonconcentric intimal calcification elsewhere. The common femoral measures 7 mm. LEFT COMMON ILIAC: Mild eccentric calcific stenosis at the vessel origin. Patchy mild nonconcentric calcification elsewhere The common femoral measures 7 mm. THORAX: Moderate bilateral pleural effusions, larger on the left than the right ABDOMEN: Atrophic right kidney. PELVIS: No acute findings CONCLUSION: Significant aortic branch vessel disease noted including disease involving the coronaries, particular ly the LAD, disease involving the arch vessels and significant disease involving the abdominal aortic visceral vessels. See above discussion. Electronically signed by: Ignacio Keen MD 04/09/2018 5:28 PM EST
[2018-04-09 17:40] LABS: Hemoglobin A1c 5.3 % (4.3-6.0)
[2018-04-09] MEDS: Insulin Detemir Inj 1,000 UNIT/10 ML Vial SQ SCH (21:36)
[2018-04-10] MEDS: Insulin NovoLIN Regular Correctional Sugar Inj SQ SCH ×2 (03:22→11:40)
[2018-04-10 04:58] LABS: Baso % (Auto) 0.2 % (0.0-2.0); Eos # (Auto) 0.1 th/mm3 (0.0-0.4); Eos % (Auto) 0.2 % (0.0-4.0); Hematocrit 37.8 % (39.0-51.0); Hemoglobin 12.5 gm/dL (13.0-17.0); Lymph # (Auto) 1.4 th/mm3 (1.0-4.8); Lymph % (Auto) 5.2 % (9.0-44.0); Mean Corpuscular HGB Conc 33.1 % (32.0-36.0); Mean Corpuscular Hemoglobin 32.3 pg (27.0-34.0); Mean Corpuscular Volume 97.6 fL (80.0-100.0); Mean Platelet Volume 8.5 fL (7.0-11.0); Mono # (Auto) 1.6 th/mm3 (0.0-0.9); Mono % (Auto) 6.3 % (0.0-8.0); Neut % (Auto) 88.1 % (16.0-70.0); Platelet Count 200 th/mm3 (150-450); Red Blood Count 3.87 mil/mm3 (4.50-5.90); Red Cell Distribution Width 14.9 % (11.6-17.2); White Blood Count 26.1 th/mm3 (4.0-11.0)
[2018-04-10 05:28] LABS: Albumin 2.9 g/dL (3.4-5.0); Anion Gap 6 meq/L (5-15); Blood Urea Nitrogen 32 mg/dL (7-18); Calcium 8.8 mg/dL (8.5-10.1); Carbon Dioxide 32.1 meq/L (21.0-32.0); Chloride 100 meq/L (98-107); Glomerular Filtration Rate 50 mL/min (>89); Glucose,Random 132 mg/dL (74-106); Magnesium 2.3 mg/dL (1.5-2.5); Phosphorus 3.5 mg/dL (2.5-4.9); Sodium 138 meq/L (136-145)
[2018-04-10 05:29] LABS: Alanine Aminotransferase 48 U/L (12-78)
[2018-04-10 05:31] LABS: Alkaline Phosphatase 57 U/L (45-117); Aspartate Aminotransferase 19 U/L (15-37); Total Protein 6.1 g/dL (6.4-8.2)
[2018-04-10 06:01] LABS: ABG Base Excess 5.1 mmol/L (-2-2); ABG PCO2 36 mmHg (38-42); ABG PO2 60 mmHG (61-120)
[2018-04-10] MEDS ORDERED: Atropine Inj 1 MG/10 ML Syringe ONE (06:30)
--- NOTE | 2018-04-10 06:43 | XR ---
EXAM DATE: 04/10/2018 5:51 AM EST AGE/SEX: 68 years / Male INDICATIONS: Shortness of breath. CLINICAL DATA: This is the patient's subsequent encounter. Patient reports that signs and symptoms h ave been present for 4 - 6 days and indicates a pain score of 0/10. MEDICAL/SURGICAL HISTORY: . Diabetes. Hypertension. Cardiovascular disease. . Heart valve rep lacement. COMPARISON: [facility] [place], CHEST 1V SINGLE AP, 04/06/2018. . FINDINGS: Portable AP view of the chest demonstrates a cardiac silhouette size at the upper limits for normal i n this patient post median sternotomy. There is airspace consolidation with pleural based opacity in the right lower lung zone and hazy pleural-parenchymal opacity at the left lung base. No pneumothorax is identified. Bones demonstrate no acute finding. CONCLUSION: Interval increase in the right basilar airspace opacity. There is also stable mild left basilar airsp lakisha opacity and likely small bilateral pleural effusions. Electronically signed by: Ignacio Blank MD 04/10/2018 6:41 AM EST
[2018-04-10] MEDS ORDERED: Vancomycin Inj 1,000 MG in Sodium Chlor 0.9% Inj 250 ML IV.SIG ONE (06:56)
[2018-04-10] MEDS ORDERED: Vancomycin Consult Pharmacy OTHER PRN (06:57)
[2018-04-10] MEDS ORDERED: Azithromycin Inj 500 MG in Sodium Chlor 0.9% Inj 250 ML IV.SIG SCH (07:00)
[2018-04-10] MEDS ORDERED: DOPamine 400 MG/250 ML Premix 400 MG/250 ML BAG IV.CONT ONE (07:38)
[2018-04-10] MEDS ORDERED: Morphine Inj 4 MG/ML Vial ONE (07:38)
[2018-04-10] MEDS ORDERED: Vancomycin Inj 2,000 MG in Sodium Chlor 0.9% Inj 500 ML IV.SIG ONE (08:00)
[2018-04-10] MEDS ORDERED: Sodium Chlor 0.9% Inj 500 ML IV.SIG SCH (08:00)
[2018-04-10] MEDS ORDERED: DOPamine 400 MG/250 ML Premix 400 MG/250 ML BAG IV.CONT PRN (08:14)
[2018-04-10 08:20] VITALS: TEMP 99.5
[2018-04-10] MEDS: Metoprolol Tartrate 50 MG Tablet PO SCH (08:26)
--- NOTE | 2018-04-10 08:29 | XR ---
EXAM DATE: 04/10/2018 8:20 AM EST AGE/SEX: 68 years / Male INDICATIONS: Post central line placement CLINICAL DATA: This is the patient's subsequent encounter. Patient reports that signs and symptoms h ave been present for 4 - 6 days and indicates a pain score of Nonresponsive. MEDICAL/SURGICAL HISTORY: Hypertension. Diabetes. Cardiovascular disease. CABG. valve replace d COMPARISON: [facility], CHEST 1V SINGLE AP, 04/10/2018. . FINDINGS: Right neck central line descends in the SVC. There is no evidence of pneumothorax or other complicati on of placement. Persistent bibasilar pleural-parenchymal opacities persist, grossly unchanged right worse than left. Cardiac contours are stable. CONCLUSION: Satisfactory Central line positioning. No pneumothorax. Electronically signed by: Ignacio Keen MD 04/10/2018 8:27 AM EST
[2018-04-10] MEDS ORDERED: Morphine Inj 4 MG/ML Vial IV.PUSH ONE (08:30)
[2018-04-10] MEDS ORDERED: MethylPREDNISolone Sod Succinate Inj 125 MG/2 ML Vial IV.PUSH SCH (09:00)
--- NOTE | 2018-04-10 09:10 | P.PNCC ---
Subjective Subjective Remarks/Hospital Course: Patient is a 68-year-old male with past medical history significant for DM, HTN, aortic valve replacement 2007 (pericardial tissue valve), irregular heart rate, alcohol abuse/dependence who was brought in by [facility] for sob for a few days. Quit smoking about 10 years ago. Continues to drink heavily approximately 9 beers daily. 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 In the ER initially on nasal cannula at 4 L oxygen saturation was only in the mid 80s. Because of diffuse wheezing patient received IV Solu-Medrol 125 mg x1 and breathing treatments and subsequently was placed on BiPAP. Chest x-ray showed evidence of congestive heart failure, BNP was 1200. Patient was given a total of 120 mg of IV Lasix in the [place] emergency department. Subsequently was transferred to CVICU at [facility] where I evaluated him. Patient also was noted to have severe metabolic acidosis secondary to lactic acidosis 5.8. This appears most likely secondary to poor perfusion. ABG showed pH of 7.37. pCO2 23, PO2 73, bicarb was 13 with a base excess of -11. I evaluated the patient in the ICU. He is on BiPAP in moderate distress. His clinical exam is consistent with CHF exacerbation. 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 And a stat echo had been ordered. Continue IV Lasix for diuresis along with breathing treatments. I am unable to do inotropic support at this time as severe aortic stenosis is not ruled out, also patient is in atrial fibrillation with RVR. Rate controlled with p.o. metoprolol and IV metoprolol as needed. Cardiology also had been consulted SUBJ 04/05: Patient remains in ICU, critical. Some worsening of shortness of breath overnight requiring BiPAP also required 50% oxygen to maintain sats about 90%. Chest x-ray stable pulmonary edema with small bilateral effusions. Currently on IV Lasix 40 mg every 12, will give additional 40 mg now. Showing signs and symptoms of alcohol withdrawal currently on scheduled low-dose Librium and as needed IV and p.o. Ativan. 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 Not requiring BiPAP at this time. Chest x-ray unchanged with mild pulmonary edema mild bilateral effusion however clinically improved. Urine output more than 3 L in 24 hours. Therapeutic on heparin. Will increase metoprolol after cardiac cath today. Discussed with Dr. Broderick 04/07: continues to improve. on simple facemask. continued adequate diuresis. denies complaints. 04/10: Patient was transferred to the ICU after rapid response called on floor for worsening shortness of breath and hypotension. Patient received Lasix 40 mg IV earlier prior to transfer and following arrival to the ICU was noted to be hypotensive and was started on levo fed for pressor support. When I evaluated the patient he was on nonrebreather facemask and had started diuresing and appeared to be breathing a little better. His Levophed was titrated up to 15 mics per minute. Patient was otherwise awake and alert and appropriately following commands. He denied any chest pain. He did complain of shortness of breath. I emergently placed a right IJ central venous catheter as patient was on significant amount of levo fed for pressor support after discussion with Dr. Broderick. There was some question of pneumonia patient had not been on any antibiotics and was being treated with oral prednisone on the floor previously. He did have a azithromycin and vancomycin IV ordered by hospitalist service prior to transfer to the ICU. Patient has not been febrile and has had a normal white count until a few days back which was thought to be possibly related to steroids. His primary problem after discussion with Dr. Broderick appears to be a stenosed prostatic aortic valve for which he was being evaluated for a TAVR. Cardiac cath during this admission did not reveal any significant obstructive CAD with LVEF 35-40%. He has been on Librium to prevent alcohol withdrawal. His chest x-ray done during rapid response shows florid pulmonary edema. He had been on a prednisone taper. Objective Vital Signs / I&O: Vital Signs 04/09/18 09:00 04/09/18 09:03 04/09/18 10:00 Temperature Pulse Rate 96 H 86 84 Respiratory Rate 18 Blood Pressure Pulse Oximetry 04/09/18 11:00 04/09/18 12:00 04/09/18 13:00 Temperature 98.1 F Pulse Rate 81 86 100 H Respiratory Rate 18 Blood Pressure 101/61 Pulse Oximetry 99 04/09/18 14:00 04/09/18 15:00 04/09/18 16:00 Temperature 98.0 F Pulse Rate 82 90 86 Respiratory Rate 18 Blood Pressure 81/60 L Pulse Oximetry 97 04/09/18 17:00 04/09/18 17:01 04/09/18 18:00 Temperature Pulse Rate 80 76 94 H Respiratory Rate 18 Blood Pressure Pulse Oximetry 04/09/18 20:00 04/09/18 20:17 04/09/18 21:00 Temperature 97.4 F L Pulse Rate 96 H 82 104 H Respiratory Rate 18 18 Blood Pressure 110/62 Pulse Oximetry 96 96 04/09/18 22:00 04/09/18 23:00 04/10/18 00:00 Temperature 97.4 F L Pulse Rate 94 H 88 85 Respiratory Rate 18 Blood Pressure 116/57 L Pulse Oximetry 95 04/10/18 01:00 04/10/18 02:00 04/10/18 03:00 Temperature Pulse Rate 90 94 H 106 H Respiratory Rate Blood Pressure Pulse Oximetry 04/10/18 03:13 04/10/18 03:26 04/10/18 04:00 Temperature 97.7 F Pulse Rate 95 H 94 H Respiratory Rate 20 18 Blood Pressure 114/60 Pulse Oximetry 94 L 94 L 04/10/18 04:03 04/10/18 05:00 04/10/18 06:00 Temperature Pulse Rate 114 H 104 H Respiratory Rate Blood Pressure Pulse Oximetry 95 04/10/18 06:48 Temperature 99.5 F Pulse Rate 102 H Respiratory Rate 23 Blood Pressure 128/80 Pulse Oximetry 91 L Intake & Output 04/09/18 04/10/18 04/10/18 18:59 06:59 18:59 Intake Total 1200 / 1200 240 / 240 Output Total 1675 / 1675 1350 / 1350 Balance -475 / -475 -1110 / -1110 Weight 84 kg Intake: Oral 1200 / 1200 240 / 240 Output: Urine 1675 / 1675 1350 / 1350 Other: # Voids 2 Date of Last Bowel Movement 04/06/18 04/10/18 # Bowel Movements 1 Result Diagrams: 04/10/18 04:15 04/10/18 04:15 Imaging: Chest X-Ray 04/04/18 02:01 CONCLUSION: Mild congestive heart failure. Thoracic Aorta CT 04/04/18 03:21 CONCLUSION: 1. No thoracic or abdominal aortic aneurysm or dissection. Moderate to severe atherosclerotic disease. 2. Mild congestive heart failure. 3. Atrophic right kidney. Fatty liver. Chest X-Ray 04/05/18 06:00 CONCLUSION: Stable basilar airspace disease and small pleural effusions compared with April 04. Chest X-Ray 04/06/18 06:00 CONCLUSION: Bilateral mostly basilar airspace disease with small effusions similar to April 05. Chest CT 04/09/18 00:00 CONCLUSION: Significant aortic branch vessel disease noted including disease involving the coronaries, particularly the LAD, disease involving the arch vessels and significant disease involving the abdominal aortic visceral vessels. See above discussion. Chest X-Ray 04/10/18 00:00 CONCLUSION: Interval increase in the right basilar airspace opacity. There is also stable mild left basilar airspace opacity and likely small bilateral pleural effusions. Chest X-Ray 04/10/18 07:58 CONCLUSION: Satisfactory Central line positioning. No pneumothorax. Objective Remarks: GENERAL: 68-year-old male who appears older than stated age, appears dyspneic on nonrebreather facemask. SKIN: warm/dry. HEAD: Atraumatic. Normocephalic. EYES: Pupils equal and round. No scleral icterus. ENT: No nasal bleeding or discharge. NECK: Trachea midline. Elevated JVD CARDIOVASCULAR: Irregular, A. fib on monitor. Prominent grade 3 systolic murmur heard in the aortic area RESPIRATORY: Appears dyspneic on nonrebreather facemask, equal chest rise. Good air entry bilaterally. Bilateral rhonchi and crackles especially at bases. No wheezing. GASTROINTESTINAL: Abdomen soft, non-tender, nondistended. No organomegaly appreciated MUSCULOSKELETAL: No obvious deformities. No clubbing. No cyanosis. 1+ Bilateral lower extremity edema. NEUROLOGICAL: Awake and alert. Oriented now. No obvious cranial nerve deficits. Motor grossly within normal limits. Normal speech. Tremulous Assessment and Plan - Problem List (1) Acute hypoxemic respiratory failure Code(s): J96.01 - Acute respiratory failure with hypoxia Status: Acute (2) CHF exacerbation Code(s): I50.9 - Heart failure, unspecified Status: Acute (3) Atrial fibrillation with RVR Code(s): I48.91 - Unspecified atrial fibrillation Status: Acute (4) Acidosis, lactic Code(s): E87.2 - Acidosis Status: Acute (5) COPD exacerbation Code(s): J44.1 - Chronic obstructive pulmonary disease with (acute) exacerbation Status: Acute (6) Alcohol dependence Code(s): F10.20 - Alcohol dependence, uncomplicated Status: Chronic (7) Type 2 diabetes mellitus Code(s): E11.9 - Type 2 diabetes mellitus without complications Status: Chronic (8) Hypertension Code(s): I10 - Essential (primary) hypertension Status: Chronic (9) S/P AVR (aortic valve replacement) Code(s): Z95.2 - Presence of prosthetic heart valve Status: Chronic - Assessment and Plan Plan: NEURO: Alcohol withdrawal syndrome Alcohol dependence -Currently on scheduled Librium and Ativan as needed for alcohol withdrawal -Has been advised to quit drinking -Supplement multivitamin thiamine -Patient drinks about 9 beers daily RESP: Acute hypoxemic respiratory failure Pulmonary edema Probable COPD with exacerbation - PRN BiPAP 04/15. Wean FiO2 to keep saturation more than 90%, currently on nonrebreather facemask -DuoNeb every 6 hours scheduled and as needed -Stop prednisone taper. IV Solu-Medrol 80 mg IV every 12 hourly started 04/10 -If respiratory status declines further, may require endotracheal intubation. 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 Prostatic tissue aortic valve with critical aortic stenosis. [id number] AR. AV mean gradient is 86 mmHg. -The estimated pulmonary arterial pressure is 60.1 mmHg. [id number] MR. -TAVR vs open AVR decision based on cardiac cath findings -Continue Lasix 40 mg every 12. Received Lasix 40 mg IV prior to transfer to the ICU and is diuresing well. -Continue home aspirin, A. fib rate controlled with beta-blockers however holding metoprolol now due to hypotension requiring Levophed for pressor support. -May digitalize if patient has issues with rapid ventricular response GI: -IV famotidine. N.p.o. for now until improvement in respiratory status Renal/: -Strict intake output, monitor and replete elect lites, follow BUN and creatinine - Post placed for strict hourly urine output. -IV Lasix as above ID: -Leukocytosis noted. -Patient was started on azithromycin and IV vancomycin this morning 04/10. Will hold vancomycin after current dose and initiate empiric cefepime for antibiotic coverage after obtaining blood cultures. Check lactic acid and pro- calcitonin. Suspicion for infection is lower and I think his primary problem is fluid overload/pulmonary edema from critical aortic stenosis involving his prosthetic valve. HEME: -Monitor CBC, coags ENDO: Type 2 diabetes Hyperglycemia poorly controlled -Electrolyte replacement per protocol -Sliding scale insulin, with AC and at bedtime pre-meal insulin, Levemir nightly PROPH: -Bilateral lower extremity SCDs. IV heparin/famotidine LINES: -Right IJ central line placed on 04/10. Condition critical Discussed with Dr. Hans Broderick. Patient may need emergency valvuloplasty versus TAVR. Dr. White not available currently as he is out of town. Dr. Broderick has spoken with Dr. Av Tovar at [facility] who has accepted patient for transfer. 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 Addendum: Patient did not tolerate taking off BIPAP hence was intubated and placed on mech ventilation prior to transpert by [facility]. Also placed right axillary A line. (2) CHF exacerbation Qualifiers: Heart failure type: combined systolic and diastolic Qualified Code(s): I50.43 - Acute on chronic combined systolic (congestive) and diastolic ( congestive) heart failure (6) Alcohol dependence Qualifiers: Substance use status: unspecified alcohol-induced disorder Qualified Code(s) : F10.29 - Alcohol dependence with unspecified alcohol-induced disorder (7) Type 2 diabetes mellitus Qualifiers: Diabetes mellitus complication status: with hyperglycemia
--- NOTE | 2018-04-10 09:14 | P.PCN ---
Date of procedure: 04/10/18 Pre-op diagnosis: Acute respiratory failure, cardiogenic shock, critical aortic stenosis Post-op diagnosis: same Procedure: PROCEDURE PERFORMED Right internal jugular vein central venous catheter placement under ultrasound guidance. INFORMED CONSENT Informed consent obtained from patient at bedside however procedure was done emergently due to extreme hemodynamic instability requiring Levophed ANESTHESIA 1% Lidocaine for local infiltration anesthesia. PROCEDURE After sterile prepping and draping using 1% lidocaine for local infiltration anesthesia, the right internal jugular vein was visualized using an ultrasound vessel finder and under direct visualization was cannulated using an introducer angiocath with dark non-pulsatile blood return. An Angiocath was advanced into the internal jugular vein without any resistance and the needle was then removed. Blood return was confirmed through the Angiocath following which a guidewire was passed through the Angiocath into the right internal jugular vein without any resistance and the Angiocath was then removed. After making a skin joseline and dilation of tract, a 20 cm antimicrobial coated triple lumen catheter was passed over the guidewire by modified Seldinger technique into the right internal jugular vein up to the 18 cm cristobal and the guidewire was then removed. Good blood return obtained through all three ports which were then flushed and capped. After securing the catheter in place with a StatLock, a Bio-occlusive dressing with Biopatch was applied to the site. The patient tolerated the procedure well with no immediate complications noted. A postprocedure chest x-ray was ordered and reviewed with good placement of right IJ central venous catheter with tip overlying SVC. No pneumothorax on post-procedure film. Anesthesia: local
--- NOTE | 2018-04-10 09:15 | P.PNCA ---
Subjective Interval history: Patient got SOB after CTA. Has emergently transferred to ICU. On bipap mask. No chest pain Medications and Allergies Active Medications: Active Medications Al Hydrox/Mg Hydrox/Simethicone (Mag-Al Plus Susp Liq) 30 ml PO Q4H PRN PRN Reason: INDIGESTION Last Admin: 04/09/18 17:46 Dose: 30 ml Albuterol (Duoneb Neb (Prn)) 1 ampul NEB Q2HR NEB PRN PRN Reason: WHEEZING Albuterol (Duoneb Neb (Shirley)) 1 ampul NEB Q6HR NEB SHIRLEY Last Admin: 04/10/18 03:12 Dose: 1 ampul Aspirin (Aspirin) 162.5 mg PO DAILY SHIRLEY Last Admin: 04/09/18 08:38 Dose: 162.5 mg Bisacodyl (Dulcolax Supp) 10 mg RECTAL DAILY PRN PRN Reason: if no BM in last 24h Chlordiazepoxide (Librium) 10 mg PO Q8H SHIRLEY Last Admin: 04/09/18 23:59 Dose: 10 mg Dextrose (D50w Vial) 50 ml IV.PUSH UNSCH PRN PRN Reason: PER HYPOGLYCEMIA PROTOCOL Furosemide (Lasix Inj) 40 mg IV.PUSH BID@0900,1800 [facility] Last Admin: 04/09/18 17:46 Dose: 40 mg Glucagon (Glucagon Inj) 1 mg OTHER PRN PRN PRN Reason: for Hypoglycemia Protocol Magnesium Sulfate 4 gm/ Sodium (Chloride) 100 mls @ 50 mls/hr IV.SIG UNSCH PRN PRN Reason: For Magnesium 0.9 - 1.1 mg/dL Magnesium Sulfate 2 gm/ Sodium (Chloride) 100 mls @ 50 mls/hr IV.SIG UNSCH PRN PRN Reason: For Magnesium 1.2 - 1.6 mg/dL Potassium Chloride (Kcl 40 Meq Premix Inj) 40 meq in 100 mls @ 25 mls/hr IV.SIG Q2H PRN PRN Reason: For Potassium 2.8 - 3.2 mEq/L Potassium Chloride (Kcl 20 Meq Premix Inj) 20 meq in 100 mls @ 50 mls/hr IV.SIG Q2H PRN PRN Reason: For Potassium 3.3 - 3.5 mEq/L Potassium Chloride (Kcl 40 Meq Premix Inj) 40 meq in 100 mls @ 25 mls/hr IV.SIG UNSCH PRN PRN Reason: For Potassium 3.3 - 3.5 mEq/L Potassium Chloride (Kcl 20 Meq Premix Inj) 20 meq in 100 mls @ 50 mls/hr IV.SIG Q2H PRN PRN Reason: For Potassium 2.8 - 3.2 mEq/L Sodium Phosphate 30 mmol/ (Sodium Chloride) 260 mls @ 42 mls/hr IV.SIG UNSCH PRN PRN Reason: For Phosphorus < 2.5 mg/dL Potassium Phosphate 30 mmol/ (Sodium Chloride) 260 mls @ 42 mls/hr IV.SIG UNSCH PRN PRN Reason: SEE LABEL COMMENTS Azithromycin 500 mg/ Sodium (Chloride) 250 mls @ 250 mls/hr IV.SIG Q24H [facility] Vancomycin HCl 2,000 mg/ (Sodium Chloride) 520 mls @ 250 mls/hr IV.SIG ONCE ONE Stop: 04/10/18 10:04 Norepinephrine Bitartrate (Levophed-Dextrose 4 Mg/250 Ml Drip) 4 mg in 250 mls @ 7.5 mls/hr IV.SIG TITRATE PRN; Protocol PRN Reason: Per Protocol Dopamine HCl/Dextrose (Dopamine 400 Mg/250 Ml Premix) 400 mg in 250 mls @ 9.45 mls/hr IV.CONT TITRATE PRN; Protocol PRN Reason: Per Protocol Cefepime HCl 1,000 mg/ Sodium (Chloride) 100 mls @ 200 mls/hr IV.SIG Q8H [facility] Insulin Aspart (Novolog Inj) 5 units SQ TIDAC [facility] Last Admin: 04/09/18 18:01 Dose: 5 units Insulin Detemir (Levemir Inj) 10 unit SQ HS [facility] Last Admin: 04/09/18 21:36 Dose: 10 unit Insulin Human Regular (Novolin R Correctional Sugar Inj) 0 units SQ ACHS AND 3AM SHIRLEY; Protocol Last Admin: 04/10/18 03:22 Dose: Not Given Lactulose (Lactulose Liq) 30 ml PO BID [facility] Last Admin: 04/09/18 21:39 Dose: 30 ml Lorazepam (Ativan Inj) 1 mg IV.PUSH Q4H PRN PRN Reason: agitation,withdrawal Lorazepam (Ativan) 0.5 mg PO Q6H PRN PRN Reason: anxiety/withdrawal Last Admin: 04/06/18 21:07 Dose: 0.5 mg Magnesium Oxide (Mag-Ox) 800 mg PO UNSCH PRN PRN Reason: For Magnesium 1.2 - 1.6 mg/dL Methylprednisolone Sodium Succinate (Solumedrol Inj) 80 mg IV.PUSH Q12HR [facility] Metoprolol Tartrate (Lopressor Inj) 2.5 mg IV.PUSH Q6H PRN PRN Reason: HR>100 Metoprolol Tartrate (Lopressor) 50 mg PO Q8H [facility] Last Admin: 04/10/18 08:26 Dose: Not Given Ondansetron HCl (Zofran Inj) 4 mg IV.PUSH Q6H PRN PRN Reason: NAUSEA OR VOMITING Polyethylene Glycol (Miralax) 17 gm PO BID [facility] Last Admin: 04/09/18 21:40 Dose: 17 gm Potassium Bicarb/Potassium Chloride (K-Lyte Cl Eff) 50 meq PO UNSCH PRN PRN Reason: For Potassium 3.3 - 3.5 mEq/L Potassium Chloride (K-Dur) 20 meq PO BID [facility] Last Admin: 04/09/18 21:39 Dose: 20 meq Potassium Phosphate (K-Phos Original) 2,000 mg PO Q4H PRN PRN Reason: Phosphorus Less Than 2.5 mg/dL Potassium Phosphate (K-Phos Original) 2,000 mg PO UNSCH PRN PRN Reason: SEE LABEL COMMENTS Pravastatin Sodium (Pravachol) 80 mg PO HS [facility] Last Admin: 04/09/18 21:39 Dose: 80 mg Senna/Docusate Sodium (Lisa-Colace) 1 tab PO BID [facility] Last Admin: 04/09/18 21:39 Dose: 1 tab Sodium Chloride (Ns Flush) 2 ml IV.FLUSH BID [facility] Last Admin: 04/09/18 21:40 Dose: 2 ml Sodium Chloride (Ns Flush) 2 ml IV.FLUSH PRN PRN PRN Reason: FLUSH AFTER USING IV ACCESS Terbutaline Sulfate (Brethine Inj) 1 mg SQ UNSCH PRN PRN Reason: For Extravasation Terbutaline Sulfate (Brethine Inj) 1 mg SQ ONCE PRN PRN Reason: Extravasation Allergies Allergy/AdvReac Type Severity Reaction Status Date / Time No Known Allergies Allergy Verified 04/04/18 02:42 Home Medications Medication Instructions Recorded Confirmed Type aspirin 162 mg PO DAILY 04/04/18 04/04/18 History glipizide 5 mg PO DAILY 04/04/18 04/04/18 History losartan 25 mg PO DAILY 04/04/18 04/04/18 History metformin 500 mg PO BID 04/04/18 04/04/18 History metoprolol tartrate 50 mg PO BID 04/04/18 04/04/18 History nifedipine 60 mg PO DAILY 04/04/18 04/04/18 History simvastatin 40 mg PO QPM 04/04/18 04/04/18 History Physical Exam Vital signs: Vital Signs 04/09/18 10:00 04/09/18 11:00 04/09/18 12:00 Temperature 98.1 F Pulse Rate 84 81 86 Respiratory Rate 18 Blood Pressure 101/61 Pulse Oximetry 99 04/09/18 13:00 04/09/18 14:00 04/09/18 15:00 Temperature 98.0 F Pulse Rate 100 H 82 90 Respiratory Rate 18 Blood Pressure 81/60 L Pulse Oximetry 97 04/09/18 16:00 04/09/18 17:00 04/09/18 17:01 Temperature Pulse Rate 86 80 76 Respiratory Rate 18 Blood Pressure Pulse Oximetry 04/09/18 18:00 04/09/18 20:00 04/09/18 20:17 Temperature 97.4 F L Pulse Rate 94 H 96 H 82 Respiratory Rate 18 18 Blood Pressure 110/62 Pulse Oximetry 96 96 04/09/18 21:00 04/09/18 22:00 04/09/18 23:00 Temperature Pulse Rate 104 H 94 H 88 Respiratory Rate Blood Pressure Pulse Oximetry 04/10/18 00:00 04/10/18 01:00 04/10/18 02:00 Temperature 97.4 F L Pulse Rate 85 90 94 H Respiratory Rate 18 Blood Pressure 116/57 L Pulse Oximetry 95 04/10/18 03:00 04/10/18 03:13 04/10/18 03:26 Temperature Pulse Rate 106 H 95 H Respiratory Rate 20 Blood Pressure Pulse Oximetry 94 L 04/10/18 04:00 04/10/18 04:03 04/10/18 05:00 Temperature 97.7 F Pulse Rate 94 H 114 H Respiratory Rate 18 Blood Pressure 114/60 Pulse Oximetry 94 L 95 04/10/18 06:00 04/10/18 06:48 Temperature 99.5 F Pulse Rate 104 H 102 H Respiratory Rate 23 Blood Pressure 128/80 Pulse Oximetry 91 L Intake & Output 04/09/18 04/10/18 04/10/18 18:59 06:59 18:59 Intake Total 1200 / 1200 240 / 240 Output Total 1675 / 1675 1350 / 1350 Balance -475 / -475 -1110 / -1110 Weight 84 kg Intake: Oral 1200 / 1200 240 / 240 Output: Urine 1675 / 1675 1350 / 1350 Other: # Voids 2 Date of Last Bowel Movement 04/06/18 04/10/18 # Bowel Movements 1 Narrative: GENERAL: alert, tachypneic SKIN: warm/dry. HEAD: Atraumatic. Normocephalic. EYES: Pupils equal and round. No scleral icterus. ENT: No nasal bleeding or discharge. NECK: Trachea midline. Elevated JVD CARDIOVASCULAR: S1S2 RRR. Prominent grade 2 severe murmur RUSB RESPIRATORY: Bibasilar crackles. GASTROINTESTINAL: Abdomen soft, non-tender, nondistended. Hepatic and splenic margins not palpable. MUSCULOSKELETAL: No obvious deformities. No clubbing. No cyanosis. Trace ankle edema. NEUROLOGICAL: Awake and alert. No obvious cranial nerve deficits. Motor grossly within normal limits. - Urinary Catheter Management Indwelling Temp Sensing Catheter Cath placed during this visit: yes, but has since been removed by the nurse Reason for continuing: Decision to DC catheter Insertion date: 04/04/18 Insertion time: 19:45 Removal date: 04/08/18 Removal time: 15:00 Results 04/10/18 04:15 04/10/18 04:15 Cardiac Enzymes 04/09/18 04/10/18 Range/Units 05:45 04:15 AST 29 19 (15-37) U/L Coagulation 04/09/18 04/10/18 Range/Units 05:48 04:15 PT 10.6 (9.8-11.6) sec APTT 21.6 L 22.2 L (23.4-31.7) sec CBC 04/09/18 04/10/18 Range/Units 05:48 04:15 WBC 14.1 H 26.1 H D (4.0-11.0) th/mm3 RBC 3.89 L 3.87 L (4.50-5.90) mil/mm3 Hgb 12.7 L 12.5 L (13.0-17.0) gm/dL Hct 37.6 L 37.8 L (39.0-51.0) % Plt Count 189 200 (150-450) th/mm3 Neut # (Auto) 11.1 H 23.0 H (1.8-7.7) th/mm3 Lymph # (Auto) 1.9 1.4 (1.0-4.8) th/mm3 Wilcox # (Auto) 1.0 H 1.6 H (0.0-0.9) th/mm3 Eos # (Auto) 0.1 0.1 (0.0-0.4) th/mm3 Baso # (Auto) 0.0 0.0 (0.0-0.2) th/mm3 Comprehensive Metabolic Panel 04/09/18 04/10/18 Range/Units 05:45 04:15 Sodium 141 138 (136-145) meq/L Potassium 4.7 4.0 (3.5-5.1) meq/L Chloride 105 100 (98-107) meq/L Carbon Dioxide 30.9 32.1 H (21.0-32.0) meq/L BUN 28 H 32 H (7-18) mg/dL Creatinine 1.17 1.42 H (0.60-1.30) mg/dL Calcium 9.0 8.8 (8.5-10.1) mg/dL AST 29 19 (15-37) U/L ALT 55 48 (12-78) U/L Alkaline Phosphatase 54 57 (45-117) U/L Total Protein 6.3 L 6.1 L (6.4-8.2) g/dL Albumin 3.1 L 2.9 L (3.4-5.0) g/dL Intake and Output 04/09/18 04/10/18 04/10/18 22:59 06:59 14:59 Intake Total 1200 / 1200 240 / 240 Output Total 1675 / 1675 1350 / 1350 Balance -475 / -475 -1110 / -1110 Intake: Oral 1200 / 1200 240 / 240 Output: Urine 5815 / 1675 1350 / 1350 Other: # Voids 2 Date of Last Bowel Movement 04/06/18 04/10/18 # Bowel Movements 1 Weight 84 kg - Imaging and Cardiology Imaging: Impressions Chest CT 04/09/18 00:00 CONCLUSION: Significant aortic branch vessel disease noted including disease involving the coronaries, particularly the LAD, disease involving the arch vessels and significant disease involving the abdominal aortic visceral vessels. See above discussion. Chest X-Ray 04/10/18 00:00 CONCLUSION: Interval increase in the right basilar airspace opacity. There is also stable mild left basilar airspace opacity and likely small bilateral pleural effusions. Chest X-Ray 04/10/18 07:58 CONCLUSION: Satisfactory Central line positioning. No pneumothorax. Assessment and Plan - Assessment (1) Stenosis of prosthetic aortic valve Code(s): I35.0 - Nonrheumatic aortic (valve) stenosis Status: Acute (2) CHF (congestive heart failure) Code(s): I50.9 - Heart failure, unspecified Status: Acute (3) Alcohol abuse Code(s): F10.10 - Alcohol abuse, uncomplicated Status: Acute (4) COPD exacerbation Code(s): J44.1 - Chronic obstructive pulmonary disease with (acute) exacerbation Status: Acute - Plan Plan cardiac cath, poss PCI once he can tolerate being supine. Hopefully can have TAVR instead of open redo. NPO after MN for possible cath. 04/07/2018 Coronaries OK. Recommend TAVR this admit. Dr. White to see 04/08/2018 Contines to improve. Still has basilar rales. Check BMP AM 04/09/2018 Severe , awaiting TAVR 04/10/2019 Patient has detriorated - on Bipap. I've explored emergency TAVR. Unfortunately Dr. White out of town. I think best option is to transfer to a facility that can do TAVR prior to Friday. I called Dr. Tovar (he has [employer] contract to do TAVR) who has accepted transfer. Patient is beinng moved shortly.
[2018-04-10] MEDS ORDERED: fentaNYL Citrate Inj 100 MCG/2 ML Ampul ONE (09:24)
[2018-04-10] MEDS ORDERED: Etomidate Inj 40 MG/20 ML Vial IV.PUSH ONE (09:24)
[2018-04-10] MEDS ORDERED: Midazolam 100 MG/100 ML Inj 100 MG/100 ML BAG IV.CONT PRN (09:28)
[2018-04-10] MEDS ORDERED: fentaNYL Citrate Inj 100 MCG/2 ML Ampul IV.PUSH ONE (09:29)
[2018-04-10] MEDS ORDERED: fentaNYL 10 mcg/mL Premix Drip 2,500 MCG/250 ML BAG IV.SIG PRN (09:29)
[2018-04-10] MEDS ORDERED: Digoxin Inj 500 MCG/2 ML Ampul ONE (10:32)
[2018-04-10] MEDS: Aspirin 325 MG Tablet PO SCH (11:42)
[2018-04-10] MEDS: Senna/Docusate Sodium 8.6/50 MG Tablet PO SCH (11:44)
[2018-04-10] MEDS: Polyethylene Glycol 3350 17 GM Packet PO SCH (11:44)
[2018-04-10] MEDS ORDERED: Oral Hygiene Kit OROPHARYNG SCH (12:00)
[2018-04-10 12:07] VITALS: BP 75/52; PULSE 114; RESP 50; O2SAT 100
--- NOTE | 2018-04-10 13:37 | P.PCN ---
Date of procedure: 04/10/18 Pre-op diagnosis: Acute respiratory failure, hypotension, critical aortic stenosis Post-op diagnosis: same Procedure: Procedure: Right axillary arterial catheter placement with ultrasound guidance Anesthesia: 1% lidocaine for local infiltration anesthesia Procedure: After sterile prepping and draping using 1% lidocaine for local infiltration anesthesia, right axillary artery was visualized using ultrasound vessel finder and was cannulated using an introducer needle with bright pulsatile blood return. A guidewire was passed through the introducer needle without any resistance and the needle was then removed. A 12 cm 20-gauge arterial catheter was passed over the guidewire by modified Seldinger's technique up to the 12 cm cristobal and after removal of guidewire catheter was connected to transducer tubing with good waveform being obtained on the monitor. Biopatch was applied to the insertion site and catheter was sutured in place. Sterile Bio-occlusive dressing was applied to the site. Patient tolerated the procedure well with no immediate complications noted.
--- NOTE | 2018-04-10 13:38 | P.PCN ---
Date of procedure: 04/10/18 Pre-op diagnosis: Acute respiratory failure, pulmonary edema, critical aortic stenosis Post-op diagnosis: same Procedure: Procedure: Endotracheal intubation Sedation used: Etomidate 20 mg, fentanyl 100 mcg, Rocuronium 50 mg IV Procedure: Patient was preoxygenated with 100% oxygen via Ambu bag with bag mask ventilation, following induction of sedation and neuromuscular blockade, laryngoscopy was performed using a glidescope with good visualization of vocal cords. An 8 Brazilian ET tube was passed through the vocal cords under direct visualization up to the 23 centimeter cristobal and after inflating cuff of ET tube, correct placement was confirmed using bagging with good color change on CO2 detector, 5 point auscultation and chest rise with ventilation. Patient was connected to mechanical ventilation. Patient tolerated the procedure well with no immediate complications noted. Postprocedure chest x-ray was ordered.
[2018-04-10] MEDS ORDERED: Chlorhexidine 0.12% Oral Kit 15 ML UDC OROPHARYNG SCH (20:00)
== END 2018-04-10 11:20 | disposition short-term general hospital (02) ==
LOC: PHED 01:58 → PHEDA 03:40 → HCVI 06:18 → HCPC 04-08 08:20 → N03 04-10 06:39
PROVIDERS: ADMIT Hospitalist; ATTEND Hospitalist